=== PATIENT | female | born 1940 | race Caucasian/White ===

== ENCOUNTER → 2018-05-14 09:42 | Outpatient (CLI) | payer MEDICARE, OTHER, SELFPAY ==
--- NOTE | 2018-05-14 09:46 | BI_ITS ---
MAMMOGRAPHY - BILATERAL SCREENING REASON FOR EXAM: Female, 77 years old. Routine annual screening examination. PERTINENT HISTORY: Personal history of breast cancer. Prior left lumpectomy. Mother with breast cancer. TECHNIQUE: Digital bilateral breast lakisha (3D mammographic acquisition) in the CC and MLO projections. 2-D mediolateral oblique (MLO) and craniocaudad (CC) views of both breasts were obtained. CAD: Full Field Digital Mammography with Computer Added Detection was performed. COMPARISON: Comparison is made with prior study dated May 15, 2016 and prior outside examination dated May 23, 2017. FINDINGS: Breast Composition: The breasts are heterogeneously dense, which may obscure small masses. There are no dominant masses or suspicious calcifications. The patient is status post left lumpectomy with resection of the nodular density in the deep slightly lateral portion of the left breast. Postoperative scarring is seen at that site. No new mass lesion or cluster of microcalcifications present. No other significant abnormalities are identified. There has been no significant change since the prior study. BI/SCREENING MAMM (CAD), BILAT IMPRESSION: Stable bilateral screening mammogram. Yearly follow-up mammogram recommended. (A) ASSESSMENT CATEGORY: BIRADS Category 2: Benign. A letter regarding these results will be sent to the patient by the facility within 30 days. Approximately 10% of breast cancers are not detected by mammography. A normal mammogram should not delay biopsy of a clinically suspicious abnormality. [id number] Electronically Signed: Fabrizio Adams MD at 8:13 EDT Tel [phone], Service support ,
== END ==
PROVIDERS: Family Provider Family Medicine; PCP Family Medicine; Visit Provider Internal Medicine Hematology & Oncology
DX: Z12.31 Encounter for screening mammogram for malignant neoplasm of breast (principal); C50.412 Malignant neoplasm of upper-outer quadrant of left female breast; Z17.0 Estrogen receptor positive status [ER+]
CPT/HCPCS: 77063; 77067

== ENCOUNTER → 2018-07-09 08:01 | Outpatient (CLI) | payer MEDICARE, OTHER, SELFPAY ==
[2018-07-09 10:33] LABS: Vitamin D,25 Hydroxy 57.9 ng/mL (29.95-100.01)
[2018-07-09 10:56] LABS: Anion Gap 8 (5-15); BUN 14 mg/dL (7-18); BUN/Creat Ratio 19.7 RATIO (10-20); Calcium,Total 8.9 mg/dL (8.5-10.1); Chloride 104 mmol/L (98-107); Cholesterol 170 mg/dL (200); Creatinine, Serum 0.71 mg/dL (0.55-1.02); EST Glomerular Filtration Rate 84 mL/min (>60); Est Glom Filt Rate - Afr Amer 102 mL/min (>60); Glucose 92 mg/dL (74-106); High Density Lipoprotein 60 mg/dL; Potassium 3.8 mmol/L (3.5-5.1); Sodium Level 137 mmol/L (136-145); Thyroid Stim Hormone (TSH) 1.37 uIU/mL (0.358-3.74); Triglycerides 105 mg/dL; Very Low Density Lipoprotein 21 mg/dL (5-40)
== END ==
PROVIDERS: Family Provider Family Medicine; PCP Family Medicine; Visit Provider Family Medicine
DX: I10 Essential (primary) hypertension (principal); M85.80 Other specified disorders of bone density and structure, unspecified site
CPT/HCPCS: 36415; 80048; 80061; 82306; 84443

== ENCOUNTER → 2018-08-29 12:32 | Outpatient (CLI) | payer MEDICARE, OTHER, SELFPAY ==
--- NOTE | 2018-08-29 12:45 | BD_ITS ---
STUDY: DUAL ENERGY X-RAY ABSORPTIOMETRY / DXA REASON FOR EXAM: Female, 77 years old. The patient is postmenopausal. Loss of height. TECHNIQUE: Bone Mineral Density (BMD) measurements of lumbar spine and bilateral hips were obtained. COMPARISON: Comparison is made with prior study dated August 15, 2016. FINDINGS: Lumbar Spine (L1-L4): g/cm2 (0.921) / T-score (-2.1) / Z-score (-0.2) Findings are suggestive of osteopenia with a moderate fracture risk. Left Femur Total: g/cm2 (0.773) / T-score (-1.9) / Z-score (0.1) Left Femoral Neck: g/cm2 (0.772) / T-score (-1.9) / Z-score (0.2) Right Femur Total: g/cm2 (0.652) / T-score (-2.8) / Z-score (-0.8) Right Femoral Neck: g/cm2 (0.679) / T-score (-2.6) / Z-score (-0.4) The T-Scores on the most recent prior examination were: Lumbar Spine (L1-L4): There has been worsening of bone density since the previous examination. Left Femur Total: which represents a worsening of 1.8%. Right Femur Total: which represents a worsening of 3.4%. BD/Dexa Bone Density Study IMPRESSION: The patient is considered osteoporotic as outlined below according to World Tony Organization (WHO) criteria with a high fracture risk. There has been worsening of bone density since the previous examination. Reference Information: The T-score is the number of standard deviations above or below the standard which is normal for young adults at their peak bone mineral density. The World Health Organization (WHO) interprets the T-scores as follows: Above -1 Normal bone density Between -1 and -2.5 Osteopenia Equal to / or below -2.5 Osteoporosis As a practical clinical guideline, osteopenia may be graded as follows: Mild -1 through -1.5 Moderate -1.6 through -2.0 Severe -2.1 through -2.4 The Z-score is the number of standard deviations above or below age-matched controls. A Z-score of less than -1.5 would be considered abnormal. References: 1. NIH Osteoporosis and Related Bone Diseases http://www.osteo.org 2. International Society for Clinical Densitometry http://www.iscd.org 3. National Osteoporosis Foundation http://www.nof.org Electronically Signed: Fabrizio Adams MD at 10:08 EST Tel [phone], Service support ,
== END ==
PROVIDERS: Family Provider Family Medicine; PCP Family Medicine; Visit Provider Family Medicine
DX: Z78.0 Asymptomatic menopausal state (principal)
CPT/HCPCS: 77080

== ENCOUNTER → 2019-07-05 06:57 | Outpatient (CLI) | payer MEDICARE, OTHER, SELFPAY ==
--- NOTE | 2019-07-05 06:48 | BI_ITS ---
MAMMOGRAPHY - BILATERAL SCREENING REASON FOR EXAM: Female, 78 years old. Routine annual screening examination. PERTINENT HISTORY: Personal history of breast cancer. Prior left lumpectomy. TECHNIQUE: Digital bilateral breast dennise (3D mammographic acquisition) in the CC and MLO projections. 2-D mediolateral oblique (MLO) and craniocaudad (CC) views of both breasts were obtained. CAD: Full Field Digital Mammography with Computer Added Detection was performed. COMPARISON: Comparison is made with prior examination dated May 14, 2018 and May 15, 2016. FINDINGS: Breast Composition: The breasts are heterogeneously dense, which may obscure small masses. There are no dominant masses or suspicious calcifications. Once again, the patient is status post lumpectomy in the deep slightly lateral portion of the left breast. This is unchanged. No new mass lesion or cluster of calcification is seen. No other significant abnormalities are identified. There has been no significant change since the prior study. BI/SCREEN MAMM (CAD) W/DENNISE BILAT IMPRESSION: Stable bilateral screening mammogram. Yearly follow-up mammogram recommended. (A) ASSESSMENT CATEGORY: BIRADS Category 2: Benign. A letter regarding these results will be sent to the patient by the facility within 30 days. Approximately 10% of breast cancers are not detected by mammography. A normal mammogram should not delay biopsy of a clinically suspicious abnormality. [id number] Electronically Signed: Fabrizio Adams, at 8:25 EST , Service support ,
== END ==
PROVIDERS: Family Provider Family Medicine; PCP Family Medicine; Referring Provider Internal Medicine Hematology & Oncology; Visit Provider Internal Medicine Hematology & Oncology
DX: Z12.31 Encounter for screening mammogram for malignant neoplasm of breast (principal); C50.412 Malignant neoplasm of upper-outer quadrant of left female breast; Z17.0 Estrogen receptor positive status [ER+]
CPT/HCPCS: 77063; 77067

== ENCOUNTER → 2020-11-19 15:44 | Outpatient (CLI) | payer MEDICARE, OTHER, SELFPAY ==
--- NOTE | 2020-11-19 15:50 | RAD_ITS ---
STUDY: X-RAY - LUMBAR SPINE REASON FOR EXAM: Female, 80 years old. LOW BACK PAIN TECHNIQUE: 5 view(s) of the lumbar spine were obtained. COMPARISON: None FINDINGS: There is straightening of the normal lumbar lordosis. Mild lumbar dextroscoliosis. Normal vertebral bodies and endplates. L3-4: Disc space narrowing with vacuum phenomenon. 6 mm retrolisthesis. Mild multilevel spondylosis. Disc spaces are otherwise well-maintained. The soft tissue structures are unremarkable. RAD/L/S Spine Min 4 Views IMPRESSION: No acute findings. Mild degenerative changes of the lumbar spine. Mild dextroscoliosis. Electronically Signed: Nurys Alcocer MD at 17:07 EDT Tel , Service support ,
== END ==
PROVIDERS: PCP Family Medicine; Referring Provider Family Medicine; Visit Provider Family Medicine
DX: M54.5 Low back pain (principal)
CPT/HCPCS: 72110

== ENCOUNTER 2020-12-15 14:00 | Outpatient (RCR) | payer MEDICARE, OTHER, SELFPAY ==
--- NOTE | 2020-11-25 13:22 | HP.PTEVAL_ITS ---
Patient's Visit Information JOSUÉ PEREZ is a 80 year old F referred to Physical Therapy by Dr. Moustapha Gomez MD with a diagnosis of BACK PAIN AND RADICULAR SYMPTOMS. Date of Evaluation: 11/25/20 Physical Therapist: Sanford Randolph, PT, Cert MDT, OCS - Visit Plan Frequency: 2x /Week Duration: 4 Weeks Plan: PT INTERVENTIONS LUMBAR FLEXION ,DLS ,POSTURAL EX'S,MODALITIES FOR PAIN ,PATIENT EDUCATION - Subjective This 80 y/o female presents to physical therapy with Back pain with radiculopathy. Patient has had LBP and radicular symptoms 3 weeks . Patient had x-rays and recommended PT. Patient pain located in lumbar and radicuar symptom hamstrings and lateral thighs. Patient was provided with pridisone 40 mg and muscle relaxers,and hydrocodine. Aggraveting factors in the morning ,walking ,standing and lifting. Alleviating factors flexion DKC and MEDS.Bowel/bladder -. Coughing/sneezing -. Bowel/bladder -. Occassionally ,tingling in feet. Patient has had no prior treatment. Patient has no abdnormal nighty pain. Patient pain affect QOL and function long with housework tasks. SOCIAL: . VOCATION: retired - Pain Bilateral Back Pain Intensity (Out of 10): 8 Pain Intensity Range: 10 Left Lower Extremity Pain Intensity (Out of 10): 8 Pain Intensity Range: 10 Comment: RIGHT > LEFT HAMSTRINGS - Objective POSTURE: mild foward posture ,mild thoracic kyphosis reduce lordosis. GAIT: reciprocal pattern antalgic gait foward posture. NEURO: intact reflexes 2/3 L3-4,L4-S1. PALAPTION: tender L-S region. SYMMTRIES : align. LUMBAR ROM: flexion min loss pain right,extension severe loss,side glides mod loss. FLEXABLITY: hams mild tight. MMT: quads/hams 4-/5,hip flexion 3+/5,ankle 4/5 - Special Tests L/S Slump test left side: Negative L/S Slump test right side: Negative L/S Left Straight Leg Raise: Negative L/S Right Straight Leg Raise: Negative Lumbar Standing: Flexion - Mechanical Response: No effect Lumbar Standing: Flexion - Symptoms During Testing: Increases Lumbar Standing: Flexion - Symptoms After Testing: No worse Lumbar Standing: Extension - Mechanical Response: No effect Lumbar Standing: Extension - Symptoms During Testing: Increases Lumbar Standing: Extension - Symptoms After Testing: Worse Lumbar Standing: Right Side Glides - Mechanical Response: No effect Lumbar Standing: Right Side Kirby - Symptoms During Testing: No effect Lumbar Standing: Right Side Kirby - Symptoms After Testing: No effect Lumbar Standing: Left Side Kirby - Mechanical Response: No effect Lumbar Standing: Left Side Kirby - Symptoms During Testing: No effect Lumbar Standing: Left Side Kirby - Symptoms After Testing: No effect Lumbar Lying: Flexion - Mechanical Response: No effect Lumbar Lying: Flexion - Symptoms During Testing: Decreases Lumbar Lying: Flexion - Symptoms After Testing: No better - Goals Goal 1:: Patient to be I with HEP Goal Time Frame: 4-6 Weeks Goal 2:: Noramailze gait pattern with less pain community Goal Time Frame: 4-6 Weeks Goal 3:: Decrease lumbar and radicular symptoms in legs 50 % or > to improve function Goal Time Frame: 4-6 Weeks Goal 4:: Patient to improve lumbar ROM for function of recovery Goal Time Frame: 4-6 Weeks Goal 5:: Patient to improve back owestry score by 5 points or> to improve function. Goal Time Frame: 4-6 Weeks - Rehabilitation Potential Physical Therapy Diagnosis: This patient has lumbar pain with radicular symptoms with possible lumbar stenosis wwith pain back and legs ,weakness in hips ,antaigic gait decrease ROM with pain impairs function and ADLS thus benifit rom skilled PT Rehabilitation Potential: Good - Anticipated Interventions Patient/Client Instruction: Educate patient on: Condition, Plan of Care For the Purpose of:: To decrease pain, To increase ROM, To improve muscle performance and motor function, To improve ability to perform ADL's, To increase tolerance to activity/condition/position, To improve performance and independence with ADL's, To improve ability of physical actions for home/community/work/leisure, To improve health of tissue, To decrease soft tissue restriction, To increase flexibility/ROM, To improve ability to perform tasks related to life management Therapeutic Exercise to Include: Strength training, Body mechanics, Postural training, Flexibilty training, Dynamic Lumbar Stabilization For the Purpose of:: To decrease pain, To increase ROM, To increase oxygenation perfusion, To increase tolerance to activity/condition/position, To improve ability of physical actions for home/community/work/leisure, To improve health of tissue, To decrease soft tissue restriction, To increase flexibility/ROM, To reduce risk of recurrence, To improve ability to perform tasks related to life management IF ES: Yes Cryotherapy (ice pack, ice massage): Yes Thermo therapy (hot pack): Yes Ultrasound (thermal/non thermal): Yes For the Purpose of:: To decrease pain, To improve nutrient delivery to tissue, To increase oxygenation perfusion, To improve health of tissue, To decrease soft tissue restriction Thank you for the opportunity to evaluate your patient. For Medicare and Medicare HMO plans, please review the plan of care and approve it. It will need to be FAXED BACK to us at [phone] for Medicare purposes. For Medicare only, by signing this I certify the plan of care. Please let me know if there are questions or concerns regarding this plan of care. Physician Signature: Date:
--- NOTE | 2021-05-31 07:49 | HP.PTDCNRP_ITS ---
JOSUÉ PEREZ was seen in my office for initial evaluation on 11/25/20. The following Plan of Care was established for this patient: Initial Frequency: 2x /Week Initial Duration: 4 Weeks Patient/Client Instruction: Educate patient on: Condition, Plan of Care For the Purpose of:: To decrease pain, To increase ROM, To improve muscle performance and motor function, To improve ability to perform ADL's, To increase tolerance to activity/condition/position, To improve performance and independence with ADL's, To improve ability of physical actions for home/community/work/leisure, To improve health of tissue, To decrease soft tissue restriction, To increase flexibility/ROM, To improve ability to perform tasks related to life management Therapeutic Exercise to Include: Strength training, Body mechanics, Postural training, Flexibilty training, Dynamic Lumbar Stabilization For the Purpose of:: To decrease pain, To increase ROM, To increase oxygenation perfusion, To increase tolerance to activity/condition/position, To improve a bility of physical actions for home/community/work/leisure, To improve health of tissue, To decrease soft tissue restriction, To increase flexibility/ROM, To reduce risk of recurrence, To improve ability to perform tasks related to life management IF ES: Yes Cryotherapy (ice pack, ice massage): Yes Thermo therapy (hot pack): Yes Ultrasound (thermal/non thermal): Yes For the Purpose of:: To decrease pain, To improve nutrient delivery to tissue, To increase oxygenation perfusion, To improve health of tissue, To decrease soft tissue restriction This patient was last seen in our office . Pertinent comments regarding their Physical therapy will appear below: Patient seen for PT for lumbar pain with lumbar flexion ex's, DLS, and lossing traction lumbar At this point I will be discontinuing this patient from physical therapy. I would be happy to see this patient again in the future if found appropriate by the physician. Thank you! Sanford Randolph, PT, Cert MDT, OCS Balance/Gait/Functional tests - Balance/Special Test Scores Oswestry Low Back Score: 2
== END 2020-12-15 19:00 | disposition home or self-care (01) ==
LOC: PT 14:00
PROVIDERS: PCP Family Medicine; Referring Provider Family Medicine; Visit Provider Family Medicine
DX: M54.10 Radiculopathy, site unspecified (principal)
CPT/HCPCS: 97012; 97035; 97110; 97162; 97530

== ENCOUNTER → 2021-01-03 15:41 | Outpatient (CLI) | payer MEDICARE, OTHER, SELFPAY ==
[2021-01-03 18:25] LABS: BUN 15 mg/dL (7-18); Creatinine, Serum 0.78 mg/dL (0.55-1.02); Glucose 90 mg/dL (74-106)
[2021-01-03 18:26] LABS: Anion Gap 6 (5-15); BUN/Creat Ratio 19.4 RATIO (10-20); Calcium,Total 9.3 mg/dL (8.5-10.1); Chloride 104 mmol/L (98-107); EST Glomerular Filtration Rate 76 mL/min (>60); Est Glom Filt Rate - Afr Amer 92 mL/min (>60); Potassium 3.8 mmol/L (3.5-5.1); Sodium Level 139 mmol/L (136-145); Thyroid Stim Hormone (TSH) 0.96 uIU/mL (0.358-3.74)
[2021-01-03 18:29] LABS: Vitamin D,25 Hydroxy 106.1 ng/mL
[2021-01-04 08:15] LABS: PTHIN 30.3 pg/mL (18.4-80.1)
== END ==
PROVIDERS: PCP Family Medicine; Referring Provider Family Medicine; Visit Provider Family Medicine
DX: M81.0 Age-related osteoporosis without current pathological fracture (principal)
CPT/HCPCS: 36415; 80048; 82306; 83970; 84443

== ENCOUNTER → 2021-01-27 13:28 | Outpatient (CLI) | payer MEDICARE, OTHER, SELFPAY ==
--- NOTE | 2021-01-27 13:35 | BD_ITS ---
STUDY: DUAL ENERGY X-RAY ABSORPTIOMETRY / DXA REASON FOR EXAM: Female, 80 years old. Z00.00. The patient is postmenopausal. TECHNIQUE: Bone Mineral Density (BMD) measurements of lumbar spine and bilateral hips were obtained. COMPARISON: Comparison is made with prior study dated 08/29/2018. FINDINGS: Lumbar Spine (L1-L4): g/cm2 (0.919) / T-score (-2.1) / Z-score (-0.2) Findings are suggestive of osteopenia with a high fracture risk. Left Femur Total: g/cm2 (0.723) / T-score (-2.3) / Z-score (-0.1) Left Femoral Neck: g/cm2 (0.768) / T-score (-1.9) / Z-score (0.3) Right Femur Total: g/cm2 (0.631) / T-score (-3.0) / Z-score (-0.9) Right Femoral Neck: g/cm2 (0.667) / T-score (-2.7) / Z-score (-0.4) The T-Scores on the most recent prior examination were: Lumbar Spine (L1-L4): There has been worsening of bone density since the previous examination. Left Femur Total: which represents a worsening of 6.5%. Right Femur Total: which represents a worsening of 3.2%. BD/Dexa Bone Density Study IMPRESSION: The patient is considered osteoporotic as outlined below according to World Tony Organization (WHO) criteria with a high fracture risk. There has been worsening of bone density since the previous examination. Reference Information: The T-score is the number of standard deviations above or below the standard which is normal for young adults at their peak bone mineral density. The World Health Organization (WHO) interprets the T-scores as follows: Above -1 Normal bone density Between -1 and -2.5 Osteopenia Equal to / or below -2.5 Osteoporosis As a practical clinical guideline, osteopenia may be graded as follows: Mild -1 through -1.5 Moderate -1.6 through -2.0 Severe -2.1 through -2.4 The Z-score is the number of standard deviations above or below age-matched controls. A Z-score of less than -1.5 would be considered abnormal. References: 1. NIH Osteoporosis and Related Bone Diseases www osteo.org 2. International Society for Clinical Densitometry www iscd.org 3. National Osteoporosis Foundation www nof.org Electronically Signed: Fabrizio Adams MD at 11:12 EDT , Service support ,
--- NOTE | 2021-01-27 13:55 | BI_ITS ---
MAMMOGRAPHY - BILATERAL SCREENING REASON FOR EXAM: Female, 80 years old. Routine annual screening examination. PERTINENT HISTORY: Personal history of breast cancer. Prior left lumpectomy. Mother with breast cancer. TECHNIQUE: Digital bilateral breast lakisha (3D mammographic acquisition) in the CC and MLO projections. 2-D mediolateral oblique (MLO) and craniocaudad (CC) views of both breasts were obtained. CAD: Full Field Digital Mammography with Computer Added Detection was performed. COMPARISON: Comparison is made with prior study dated 07/05/2019 and 05/14/2018. FINDINGS: Breast Composition: The breasts are heterogeneously dense, which may obscure small masses. There are no dominant masses or suspicious calcifications. No other significant abnormalities are identified. There has been no significant change since the prior study. BI/SCREENING MAMM (CAD), BILAT IMPRESSION: Stable bilateral screening mammogram. Yearly follow-up mammogram recommended. (A) ASSESSMENT CATEGORY: BIRADS Category 1: Negative. A letter regarding these results will be sent to the patient by the facility within 30 days. Approximately 10% of breast cancers are not detected by mammography. A normal mammogram should not delay biopsy of a clinically suspicious abnormality. [id number] Electronically Signed: Fabrizio Adams MD at 14:45 EDT , Service support ,
== END ==
PROVIDERS: PCP Family Medicine; Referring Provider Family Medicine; Visit Provider Family Medicine
DX: Z12.31 Encounter for screening mammogram for malignant neoplasm of breast (principal); Z85.3 Personal history of malignant neoplasm of breast; M81.0 Age-related osteoporosis without current pathological fracture; Z78.0 Asymptomatic menopausal state; Z80.3 Family history of malignant neoplasm of breast
CPT/HCPCS: 77067; 77080

== ENCOUNTER → 2022-02-06 | Outpatient (CLI) | payer MEDICARE, OTHER, SELFPAY ==
--- NOTE | 2022-02-06 12:02 | BI_ITS ---
MAMMOGRAPHY - BILATERAL SCREENING REASON FOR EXAM: Female, 81 years old. Routine annual screening examination. PERTINENT HISTORY: Personal history of breast cancer. Prior left lumpectomy with the chemotherapy. Mother with breast cancer. TECHNIQUE: Digital bilateral breast dennise (3D mammographic acquisition) in the CC and MLO projections. 2-D mediolateral oblique (MLO) and craniocaudad (CC) views of both breasts were obtained. CAD: Full Field Digital Mammography with Computer Added Detection was performed. COMPARISON: Comparison is made with prior study dated 01/27/2021 and 07/05/2019. FINDINGS: Breast Composition: The breasts are heterogeneously dense, which may obscure small masses. There are no dominant masses or suspicious calcifications. No other significant abnormalities are identified. There has been no significant change since the prior study. BI/SCRN MAMM (CAD)W/DENNISE BILAT IMPRESSION: Stable bilateral screening mammogram. Yearly follow-up mammogram recommended. (A) ASSESSMENT CATEGORY: BIRADS Category 1: Negative. A letter regarding these results will be sent to the patient by the facility within 30 days. Approximately 10% of breast cancers are not detected by mammography. A normal mammogram should not delay biopsy of a clinically suspicious abnormality. [id number] Electronically Signed: Fabrizio Adams MD at 12:55 EDT ,
== END | disposition home or self-care (01) ==
LOC: OPBI 11:55
PROVIDERS: PCP Family Medicine; Referring Provider Nurse Practitioner; Visit Provider Nurse Practitioner
DX: Z12.31 Encounter for screening mammogram for malignant neoplasm of breast (principal)
CPT/HCPCS: 77063; 77067

== ENCOUNTER → 2023-04-03 | Outpatient (CLI) | payer MEDICARE, OTHER, SELFPAY ==
--- NOTE | 2023-04-03 12:22 | ECHOD_ITS ---
Reason For Study: MURMUR Procedure This was a 2D Doppler, Color Flow transthoracic echocardiogram. The study was technically difficult. Exam performed in department. Left Ventricle Normal LV size. Left ventricular systolic function is normal. The estimated ejection fraction is 65 %. No regional wall motion abnormalities noted. Right Ventricle Normal RV size. Normal systolic function. Atria Normal left atrium. Normal right atrium. Mitral Valve Bileaflet diffuse mitral valve thickening. Bileaflet mitral valve prolapse. Moderate (2+) anteriorly directed mitral valve insufficiency. Tricuspid Valve Normal tricuspid valve. Mild tricuspid valve insufficiency. Pulmonary artery systolic pressure is 36 mmHg. Aortic Valve Normal aortic valve. Mild (1+) aortic valve insufficiency. Pulmonic Valve Normal pulmonic valve. Great Vessels Normal aortic root. The pulmonary artery is normal size. Normal inferior vena cava. Pericardium/Pleural No pericardial effusion. MMode/2D Measurements & Calculations LVIDd: 5.2 cm IVSd: 1.1 cm Ao root diam: 3.9 cm LVIDs: 3.1 cm LVPWd: 1.1 cm RVDd: 3.2 cm FS: 40.2 % LAV(MOD-sp2): 41.7 ml LVAd ap4: 25.2 cm2 LVAd ap2: 20.2 cm2 LVLd ap4: 7.3 cm LVLd ap2: 6.8 cm EDV(MOD-sp4): 70.8 ml EDV(MOD-sp2): 49.2 ml EDV(sp4-el): 73.5 ml EDV(sp2-el): 50.7 ml LVAs ap4: 11.4 cm2 LVAs ap2: 9.5 cm2 LVLs ap4: 5.5 cm LVLs ap2: 5.6 cm ESV(MOD-sp4): 21.6 ml ESV(MOD-sp2): 15.1 ml ESV(sp4-el): 20.2 ml ESV(sp2-el): 13.8 ml EF(MOD-sp4): 69.6 % EF(MOD-sp2): 69.4 % EF(sp4-el): 72.5 % SV(MOD-sp4): 49.3 ml SV(MOD-sp2): 34.1 ml SV(sp4-el): 53.3 ml LA dimension(2D): 3.6 cm Time Measurements MV dec time: 0.20 sec Doppler Measurements & Calculations MV E max jesse: 111.9 cm/sec Lat Peak E' Jesse: 8.1 cm/sec Med Peak E' Jesse: 4.9 cm/sec MV A max jesse: 63.1 cm/sec E/E' lat: 13.8 E/E' med: 22.9 MV E/A: 1.8 MV V2 max: 130.7 cm/sec Ao V2 max: 142.6 cm/sec LV V1 max: 106.2 cm/sec MV max P.8 mmHg Ao max P.2 mmHg LV V1 max P.7 mmHg MV V2 mean: 53.6 cm/sec Ao V2 mean: 98.1 cm/sec LV V1 mean P.4 mmHg MV mean P.7 mmHg Ao mean P.4 mmHg LV V1 mean: 70.3 cm/sec MV V2 VTI: 30.2 cm Ao V2 VTI: 28.3 cm LV V1 VTI: 19.1 cm AV (velocity ratio): 0.68 MR max jesse: 632.2 cm/sec PA V2 max: 72.3 cm/sec TR max jesse: 280.8 cm/sec MR max P.9 mmHg PA V2 mean: 48.3 cm/sec TR max P.5 mmHg MR mean jesse: 539.3 cm/sec MR mean P.4 mmHg MR VTI: 210.4 cm ECHO/Echo Complete Interpretation Summary Normal LV size. Left ventricular systolic function is normal. The estimated ejection fraction is 65 %. Bileaflet diffuse mitral valve thickening. Bileaflet mitral valve prolapse. Moderate (2+) anteriorly directed mitral valve insufficiency. Ordering Physician: Clif Chery Referring Physician: Clif Chery Performed By: Gisela Broussard, DAWITCS, RVT
--- NOTE | 2023-04-03 12:22 | EKG12_ITS ---
Test Reason : HTN Blood Pressure : / mmHG Vent. Rate : 064 BPM Atrial Rate : 064 BPM P-R Int : 168 ms QRS Dur : 138 ms QT Int : 422 ms P-R-T Axes : 056 -47 035 degrees QTc Int : 435 ms Normal sinus rhythm with sinus arrhythmia Right bundle branch block Left anterior fascicular block Bifascicular block Abnormal ECG Confirmed by SUMAN HINOJOSA, MAR ([id number]), editorial cartoonist CARMELINA HOLBROOK ([id number]) on 04/04/2023 8:54:11 AM Referred By: Clif Chery Confirmed By:MAR WILL MD
== END | disposition home or self-care (01) ==
LOC: PSN 12:20
PROVIDERS: PCP Nurse Practitioner Family; Referring Provider Nurse Practitioner Family; Visit Provider Nurse Practitioner Family
DX: I10 Essential (primary) hypertension (principal); R01.1 Cardiac murmur, unspecified
CPT/HCPCS: 93005; 93306

== ENCOUNTER → 2023-04-10 | Outpatient (CLI) | payer MEDICARE, OTHER, SELFPAY ==
--- NOTE | 2023-04-10 09:09 | BI_ITS ---
MAMMOGRAPHY - BILATERAL SCREENING REASON FOR EXAM: Female, 82 years old. Routine annual screening examination. PERTINENT HISTORY: Personal history of breast cancer. Prior left lumpectomy. Mother with breast cancer. TECHNIQUE: Digital bilateral breast dennise (3D mammographic acquisition) in the CC and MLO projections. 2-D mediolateral oblique (MLO) and craniocaudad (CC) views of both breasts were obtained. CAD: Full Field Digital Mammography with Computer Added Detection was performed. COMPARISON: Comparison is made with prior study dated February 06, 2022 and January 27, 2021. FINDINGS: Breast Composition: The breasts are heterogeneously dense, which may obscure small masses. There are no dominant masses or suspicious calcifications. No other significant abnormalities are identified. There has been no significant change since the prior study. BI/SCRN MAMM (CAD)W/DENNISE BILAT IMPRESSION: Stable bilateral screening mammogram. Yearly follow-up mammogram recommended. (A) ASSESSMENT CATEGORY: BIRADS Category 2: Benign. A letter regarding these results will be sent to the patient by the facility within 30 days. Approximately 10% of breast cancers are not detected by mammography. A normal mammogram should not delay biopsy of a clinically suspicious abnormality. [id number] Electronically Signed: Fabrizio Adams MD at 10:37 EDT ,
--- NOTE | 2023-04-10 09:16 | BD_ITS ---
STUDY: DUAL ENERGY X-RAY ABSORPTIOMETRY / DXA REASON FOR EXAM: Female, 82 years old. [id number] TECHNIQUE: Bone Mineral Density (BMD) measurements of lumbar spine and bilateral hips were obtained. COMPARISON: Comparison is made with prior study dated January 27, 2021. FINDINGS: Lumbar Spine (L1-L4): g/cm2 (0.798) / T-score (-2.3) / Z-score (0.6) Findings are suggestive of osteopenia with a high fracture risk. Left Femur Total: g/cm2 (0.650) / T-score (-2.4) / Z-score (-0.1) Left Femoral Neck: g/cm2 (0.596) / T-score (-2.3) / Z-score (0.2) Right Femur Total: g/cm2 (0.590) / T-score (-2.9) / Z-score (-0.6) Right Femoral Neck: g/cm2 (0.493) / T-score (-3.2) / Z-score (-0.7) The T-Scores on the most recent prior examination were: Lumbar Spine (L1-L4): There has been worsening of bone density since the previous examination. Left Femur Total: which represents a worsening of 2.3%. Right Femur Total: which represents an improvement of 2.4%. BD/Dexa Bone Density Study IMPRESSION: The patient is considered osteoporotic as outlined below according to World Tony Organization (WHO) criteria with a high fracture risk. There has been worsening of bone density since the previous examination. Reference Information: The T-score is the number of standard deviations above or below the standard which is normal for young adults at their peak bone mineral density. The World Health Organization (WHO) interprets the T-scores as follows: Above -1 Normal bone density Between -1 and -2.5 Osteopenia Equal to / or below -2.5 Osteoporosis As a practical clinical guideline, osteopenia may be graded as follows: Mild -1 through -1.5 Moderate -1.6 through -2.0 Severe -2.1 through -2.4 The Z-score is the number of standard deviations above or below age-matched controls. A Z-score of less than -1.5 would be considered abnormal. References: 1. NIH Osteoporosis and Related Bone Diseases www osteo.org 2. International Society for Clinical Densitometry www iscd.org 3. National Osteoporosis Foundation www nof.org Electronically Signed: Fabrizio Adams MD at 9:26 EDT ,
== END | disposition home or self-care (01) ==
LOC: OPBD 09:07
PROVIDERS: PCP Nurse Practitioner Family; Referring Provider Nurse Practitioner Family; Visit Provider Nurse Practitioner Family
DX: Z12.31 Encounter for screening mammogram for malignant neoplasm of breast (principal); Z78.0 Asymptomatic menopausal state; Z85.3 Personal history of malignant neoplasm of breast; Z80.3 Family history of malignant neoplasm of breast
CPT/HCPCS: 77063; 77067; 77080

== ENCOUNTER → 2023-05-01 | Outpatient (CLI) | payer MEDICARE, OTHER, SELFPAY ==
--- NOTE | 2023-05-01 08:25 | RDU_ITS ---
Reason For Study: Essential HTN Right Renal Artery Left Renal Artery Right renal artery ostium 65.8/14.2 Left renal artery ostium 73.2/16.7 RSV/EDV. PSV/EDV. Right renal artery proximal Left renal artery proximal PSV/EDV 97.8/27.8 PSV/EDV. 79.3/20.4 . Right renal artery mid 79.3/19.8 Left renal artery mid 80.6/26.5 PSV/EDV. PSV/EDV . Right renal artery distal 64.2/23 Left renal artery distal 69/21.3 PSV/EDV. PSV/EDV. Right RAR 1.32. Left RAR 1.08. Right Renal Parenchyma Left Renal Parenchyma Upper Pole Medula 32.3/10.2 Left upper pole medulla 39.5/13.7 PSV/EDV. PSV/EDV . Right upper pole medulla EDR 0.3 . Left upper pole medulla EDR 0.3 . Right upper pole medulla R.I. Left upper pole medulla R.I. 0.65 . 0.68 . UP Cortex 19.2/7.1 PSV/EDV. Upper Lenard Cortx 18.8/6.5 PSV/EDV. Left upper pole cortex EDR 0.4 . Right upper pole cortex EDR 0.3 . Left upper pole cortex R.I. 0.63 . Right upper pole cortex R.I. 0.65 . Left lower Pole medulla 35.1/12 Right lower Pole medulla 34.8/11.4 PSV/EDV . PSV/EDV . Left lower pole medulla EDR 0.3 . Right lower pole medulla EDR 0.3 . Left lower pole medulla R.I. 0.66 . Right lower pole medulla R.I. Lower Pole Cortx 18.6/7.6 PSV/EDV. 0.67 . Left lower pole cortex EDR 0.4 . Lower Pole Cortex 13.9/5.3 PSV/EDV. Left lower pole cortex R.I. 0.59 . Right lower pole cortex EDR 0.4 . Left Renal Hilar Right lower pole cortex R.I. 0.62 . LT Hilar avg 59.2/21.3 PSV/EDV . Right Renal Hilar Left hilar acceleration time 50 Right Hilar avg 55.8/17.3 PSV/EDV. m/sec. Right hilar acceleration time 60 Left Renal Dimensions m/sec. Left kidney size 10.82 cm . Right Renal Dimensions Left cortical dimension 1.49 cm . Right kidney size 9.96 cm . Right cortical dimension 1.45 cm . Aorta Proximal abdominal aorta 2.16 x 2.25 cm . Proximal abdominal aorta peak systolic velocity is 74.3 cm/sec . Distal abdominal aorta 1.51 x 1.55 cm . Distal abdominal aorta peak systolic velocity is 73.2 cm/sec . VL/Renal Artery Duplex Ultrasound Interpretation Summary Bilateral renal arteries <60% stenosis. Ordering Physician: Clif Chery Referring Physician: Clif Chery Performed By: Treva Hernandez RVT
== END | disposition home or self-care (01) ==
LOC: CVS 08:24
PROVIDERS: PCP Nurse Practitioner Family; Referring Provider Nurse Practitioner Family; Visit Provider Nurse Practitioner Family
DX: I10 Essential (primary) hypertension (principal)
CPT/HCPCS: 93975

== ENCOUNTER 2025-05-30 18:43 | Emergency (ER) | payer MEDICARE, OTHER, SELFPAY ==
[2025-05-30 18:46] VITALS: BP 214/100; PULSE 77; RESP 19; TEMP 36.4; O2SAT 98; BMI 26.4
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
--- OUTSIDE RECORDS SUMMARY | 2025-05-30 19:38 | XMS RPT_ITS | CCD ---
Author Organization [facility] Care Team Providers Care Senior Account Director Name Role Phone Lexus HINOJOSA, Franki George Primary Care Provider Darvin HINOJOSA MD, Daesung Unavailable [phone] MIRI CATALOG SPECIALIST - TELEGRAPH REPEATER INSTALLER, KEVIN Arellano Primary Care Phys ician Miri WORKDAY CONSULTANT, WORKDAY CONSULTANT-C Kevin Aaron Primary Care Pr ovider Dr. Isidro Rueda Attending Provider Kevin Chery Primary Care Unavail able Isidro Rueda Attending Unavailable Miri, Kevin Aaron Primary Care Unavail able Miri, Kevin Aaron Referring Unavail able [place], Kevin Aaron Attending Unavail able Miri, Kevin Aaron Primary Care Unavail able Miri, Kevin Aaron Referring Unavail able Miri, Kevin Aaron Attending Unavail able SHARON HINOJOSA, DR KEELY Shi Attending Unavailab le MIRI CATALOG SPECIALIST - TELEGRAPH REPEATER INSTALLER, KEVIN Arellano Primary Care U navailable MIRI CATALOG SPECIALIST - TELEGRAPH REPEATER INSTALLER, KEVIN Arellano Attending U navailable MIRI CATALOG SPECIALIST - TELEGRAPH REPEATER INSTALLER, KEVIN Arellano Primary Care U navailable MIRI CATALOG SPECIALIST - TELEGRAPH REPEATER INSTALLER, KEVIN Arellano Attending U navailable MIRI CATALOG SPECIALIST - TELEGRAPH REPEATER INSTALLER, KEVIN Arellano Primary Care U navailable MIRI CATALOG SPECIALIST - TELEGRAPH REPEATER INSTALLER, KEVIN Arellano Attending U navailable MIRI CATALOG SPECIALIST - TELEGRAPH REPEATER INSTALLER, KEVIN Arellano Primary Care U navailable MIRI CATALOG SPECIALIST - TELEGRAPH REPEATER INSTALLER, KEVIN Arellano Attending U navailable MIRI CATALOG SPECIALIST - TELEGRAPH REPEATER INSTALLER, KEVIN Arellano Primary Care U navailable ESHENAUR PAMELAC, MIGUEL Castillo Attending Unavailable MIRI CATALOG SPECIALIST - TELEGRAPH REPEATER INSTALLER, KEVIN Arellano Primary Care U navailable KENNEN CATALOG SPECIALIST-TELEGRAPH REPEATER INSTALLER, BEV Durant Attending Unavai lable MIRI CATALOG SPECIALIST - TELEGRAPH REPEATER INSTALLER, KEVIN Arellaon Primary Care U navailable MIRI CATALOG SPECIALIST - TELEGRAPH REPEATER INSTALLER, KEVIN Arellano Attending U navailable MIRI CATALOG SPECIALIST - TELEGRAPH REPEATER INSTALLER, KEVIN Arellano Primary Care U therese HERRERA MD, DR KEELY Shi Attending Unavailab le MIRI CATALOG SPECIALIST - TELEGRAPH REPEATER INSTALLER, KEVIN Arellano Primary Care U therese HERRERA MD, DR KEELY Shi Admitting Unavailab le MIRI CATALOG SPECIALIST - TELEGRAPH REPEATER INSTALLER, KEVIN Arellano Consulting U therese GARZA MD, AYO Consulting Unavailable KAPPER CATALOG SPECIALIST-TELEGRAPH REPEATER INSTALLER, TITI Hopkins Consulting Arina HERRERA MD, DR KEELY Shi Attending Unavailab le MIRI CATALOG SPECIALIST - TELEGRAPH REPEATER INSTALLER, KEVIN Arellano Primary Care U navailable FISH CATALOG SPECIALIST-TELEGRAPH REPEATER INSTALLER, [place] Attending Unavailab le MIRI CATALOG SPECIALIST - TELEGRAPH REPEATER INSTALLER, KEVIN Arellano Primary Care U navailable MIRI CATALOG SPECIALIST - TELEGRAPH REPEATER INSTALLER, KEVIN Arellano Primary Care U navailable YANY MORELAND, MIGUEL Castillo Attending Unavailable MIRI CATALOG SPECIALIST - TELEGRAPH REPEATER INSTALLER, KEVIN Arellano Attending U navailable MIRI CATALOG SPECIALIST - TELEGRAPH REPEATER INSTALLER, KEVIN Arellano Primary Care U navailable MIRI CATALOG SPECIALIST - TELEGRAPH REPEATER INSTALLER, KEVIN Arellano Attending U navailable MIRI CATALOG SPECIALIST - TELEGRAPH REPEATER INSTALLER, KEVIN Arellano Primary Care U navailable MIRI CATALOG SPECIALIST - TELEGRAPH REPEATER INSTALLER, KEVIN Arellaon Primary Care U navailable MIRI CATALOG SPECIALIST - TELEGRAPH REPEATER INSTALLER, KEVIN Arellano Attending U navailable Medications Current Medications Medication Drug Class(es) Dates Sig (Normalized) Sig (Original) acetaminophen 1000 mg oral tablet (6 sources) Start: 01-01-2024 take 1 dose by mouth every six hours as needed for pain acetaminophen Dose : 1,000 mg =, Oral, q6hr, PRN as needed for pain, 0 Refill(s) Start Date: 01/01/24 Status: Ordered Medication Dispense Status: Completed Total Allowed Fills: 1 Fills Dispensed: 0 acetaminophen 325 mg / oxyCODONE hydrochloride 5 mg oral tablet (3 sources) Opioid Agonist Start: 06-02-2016 take 1 tablet by mouth every four hours Oxycodone-Acetamino phen Active 1 - 2 TABLET PO Q4H June 02, 2016 12:00am calcium carbonate 1500 mg oral tablet (8 sources) Start: 12-05-2022 calcium (as carbonate) 600 mg oral tablet Dose : 1,200 mg = 2 tab(s), Oral, qDay, 0 Refill(s) Start Date: 12/05/22 Status: Ordered calcium carbonate 1500 mg / cholecalciferol 800 unt oral tablet (3 sources) Vitamin D Start: 05-30-2016 Calcium Carbonate-Vitamin D3 (Caltrate With Vitamin D3) 1 TAB tablet Active 1 TABLET PO DAILY@0800 May 30, 2016 12:00am DME MISCellaneous (2 sources) Start: 09-22-2024 DME MISCellaneous See Instructions, Medical alert system, # 1 EA, 0 Refill(s), Osteoarthritis, 67.3 Start Date: 09/22/24 Status: Ordered Medication Dispense Status: Completed Quantity: 1.0 Unit: EA Total Allowed Fills: 1 Fills Dispensed: 0 Indications: Unspecified osteoarthritis, unspecified site; Start: 09-22-2024 DME MISCellane ous See Instructions, Medical alert system, # 1 EA, 0 Refill(s), Osteoarthritis, 67.3 Start Date: 09/22/24 Status: Ordered Quantity: 1.0 Unit: EA Repeat number: 1 Indication: Unspecified osteoarthritis, unspecified site docusate sodium 50 mg / sennosides, group home 8.6 mg oral tablet (1 source) Start: 01-03-2024 End: 01-06-2024 take 1 tablet by mouth twice daily as needed for constipation Senokot S 50 mg-8.6 mg oral tablet Dose = 2 tab(s), Oral, BID, Take as needed for constipation, X 3 day(s), # 12 tab(s), 0 Refill(s), [id number], 165.4, cm, 01/01/24 12:13:00 EDT, Height, kg, 01/01/24 12:13:00 EDT, Dosing Weight Start Date: 01/03/24 Stop Date: 01/06/24 Status: Ordered hydrALAZINE hydrochloride 10 mg oral tablet (7 sources) Arteriolar Vasodilator Start: 01-03-2024 End: 01-03-2024 take 1 tablet by mouth in the morning hydrALAZINE Start: 01/03/24 11:00:00 AM EDT, Dose = 10 mg, = 1 tab(s), Oral, Hold if SBP (mmHg) Start Date: 01/03/24 Stop Date: 01/03/24 Status: Completed Start: 01-03-2024 End: 01-03-2024 take 1 tablet by mouth in the morning hydrALAZINE Start: 01/03/24 7:00:00 AM EDT, Dose = 10 mg, = 1 tab(s), Oral, Hold if SBP (mmHg) Start Date: 01/03/24 Stop Date: 01/03/24 Status: Completed Start: 12-17-2023 End: 07-15-2024 hydrALAZINE 10 mg oral table t Dose : 10 mg = 1 tab(s), Oral, BID before brkst/lunch, # 180 tab(s), 1 Refill(s), Pharmacy: [facility] #[id number], Uncontrolled hypertension, 165.5, cm, 01/17/24 10:33:00 EDT, Height, kg, 01/17/24 10:33:00 EDT, Dosing Weight Start Date: 01/17/24 Stop Date: 07/15/24 Status: Ordered 24 hr metoprolol succinate 25 mg extended release oral tablet (14 sources) beta-Adrenergic Wes Start: 03-16-2025 metopr olol succinate 25 mg oral TABLET extended release Dose : 25 mg = 1 tab(s), Oral, qDay, # 90 tab(s), 1 Refill(s), Pharmacy: [facility], Uncontrolled hypertension, 165, cm, 11/03/24 9:43:00 EDT, Height, kg, 11/03/24 9:43:00 EDT, Dosing Weight Start Date: 03/16/25 Status: Ordered Medication Dispense Status: Completed Quantity: 90.0 Unit: tab(s) Total Allowed Fills: 2 Fills Dispensed: 0 Indications: Essential (primary) hypertension; Start: 2024 metoprolol suc cinate 25 mg oral TABLET extended release Dose : 25 mg = 1 tab(s), Oral, qDay, # 90 tab(s), 1 Refill(s), Pharmacy: [facility] #[id number], Uncontrolled hypertension, 165.5, cm, 04/22/24 13:29:00 EDT, Height, kg, 04/22/24 13:29:00 EDT, Dosing Weight Start Date: 10/02/24 Status: Ordered Quantity: 90.0 Unit: tab(s) Repeat number: 2 Indication: Essential (primary) hypertension Start: 03-31-2024 metoprolol suc cinate 25 mg oral TABLET extended release Dose : 25 mg = 1 tab(s), Oral, qDay, # 90 tab(s), 1 Refill(s), Pharmacy: [facility] #[id number], Uncontrolled hypertension, 165.5, cm, 01/17/24 10:33:00 EDT, Height, kg, 03/31/24 9:23:00 EDT, Dosing Weight Start Date: 03/31/24 Status: Ordered Start: 01-02-2024 End: 01-03-2024 take 0.5 tablet by mouth in the morning metoprolol succinate 25 mg oral TABLET extended release Start: 01/03/24 8:00:00 AM EDT, Dose = 25 mg, = 0.5 tab(s), Oral, Hold if SBP (mmHg) Start Date: 01/03/24 Stop Date: 01/03/24 Status: Completed Start: 10-11-2023 metoprolol suc cinate 25 mg oral TABLET extended release Dose : 25 mg = 1 tab(s), Oral, qDay, # 90 tab(s), 1 Refill(s), Pharmacy: [facility] #[id number], Uncontrolled hypertension, 165.5, cm, 01/17/24 10:33:00 EDT, Height, kg, 01/17/24 10:33:00 EDT, Dosing Weight Start Date: 01/17/24 Status: Ordered Start: 09-20-2023 metoprolol suc cinate 25 mg oral TABLET extended release Dose : 25 mg = 1 tab(s), Oral, qDay, # 30 tab(s), 0 Refill(s), Pharmacy: [facility] #[id number], Uncontrolled hypertension, 164, cm, 09/20/23 13:45:00 EST, Height, kg, 09/20/23 13:45:00 EST, Dosing Weight Start Date: 09/20/23 Status: Ordered ondansetron 4 mg oral tablet (1 source) Serotonin-3 Receptor Antagonist Start: 01-03-2024 End: 01-10-2024 ondansetron 4 mg oral tablet Dose : 4 mg = 1 tab(s), Oral, q8h, PRN Nausea/Vomiting, # 15 tab(s), 0 Refill(s), 01/10/24 9:23:00 AM EDT, Pharmacy: [facility] #[id number], 165.4, cm, 01/01/24 12:13:00 EDT, Height, kg, 01/01/24 12:13:00 EDT, Dosing Weight Start Date: 01/03/24 Stop Date: 01/10/24 Status: Ordered ramipril 10 mg oral capsule (10 sources) Angiotensin Converting Enzyme Inhibitor Start: 10-11-2023 ramipril 10 mg oral capsule Dose : 10 mg = 1 cap(s), Oral, qDay, Dose adjustment, # 90 cap(s), 1 Refill(s), Pharmacy: [facility] #[id number], Uncontrolled hypertension, 166, cm, 10/11/23 9:30:00 EST, Height, kg, 10/11/23 9:30:00 EST, Dosing Weight Start Date: 10/11/23 Status: Ordered Start: 09-20-2023 ramipril 10 mg oral capsule Dose : 10 mg = 1 cap(s), Oral, qDay, Dose adjustment, # 90 cap(s), 1 Refill(s), Pharmacy: [facility] #[id number], Uncontrolled hypertension, 164, cm, 09/20/23 13:45:00 EST, Height, kg, 09/20/23 13:45:00 EST, Dosing Weight Start Date: 09/20/23 Status: Ordered Start: 03-08-2023 ramipril 10 mg oral capsule Dose : 10 mg = 1 cap(s), Oral, qDay, Dose adjustment, # 90 cap(s), 1 Refill(s), Pharmacy: [facility] #[id number], Uncontrolled hypertension, 166, cm, 03/08/23 7:32:00 EDT, Height Start Date: 03/08/23 Status: Ordered Start: 12-05-2022 End: 02-03-2023 ramipril 5 mg oral capsule D ose : 5 mg = 1 cap(s), Oral, Daily, # 30 cap(s), 1 Refill(s), Pharmacy: [facility] #[id number], Uncontrolled hypertension, 166, cm, 12/05/22 15:21:00 EDT, Height Start Date: 12/05/22 Stop Date: 02/03/23 Status: Ordered sodium chloride 1000 mg oral tablet (2 sources) Start: 01-03-2024 take 1 tablet by mouth three times daily sodium chloride 1000 mg oral tablet Dose : 1 gram(s) =, Oral, TID, # 90 tab(s), 0 Refill(s), Pharmacy: [facility] #[id number], 165.4, cm, 01/01/24 12:13:00 EDT, Height, kg, 01/01/24 12:13:00 EDT, Dosing Weight Start Date: 01/03/24 Status: Ordered spironolactone 25 mg oral tablet (7 sources) Aldosterone Antagonist Start: 10-11-2023 End: 04-08-2024 spironolactone 25 mg oral tablet Dose : 25 mg = 1 tab(s), Oral, qDay, Take with food, # 90 tab(s), 1 Refill(s), Pharmacy: [facility] #[id number], HTN, goal below 140/90, 166, cm, 10/11/23 9:30:00 EST, Height, kg, 10/11/23 9:30:00 EST, Dosing Weight Start Date: 10/11/23 Stop Date: 04/08/24 Status: Ordered traMADol hydrochloride 50 mg oral tablet (1 source) Opioid Agonist Start: 01-03-2024 End: 01-10-2024 take 1-2 tablets by mouth every six hours as needed for pain Ultram 50 mg oral tablet See Instructions, PRN as needed for pain, 1-2 tab(s) Oral q6h, # 42 tab(s), 0 Refill(s), 01/10/24 9:23:00 AM EDT, Pharmacy: [facility] #[id number], S/P total left hip arthroplasty, 165.4, cm, 01/01/24 12:13:00 EDT, Height, 65.4, kg, 01/01/24 12:13:00 EDT, Dosing Weight Start Date: 01/03/24 Stop Date: 01/10/24 Status: Ordered valsartan 160 mg oral tablet (4 sources) Angiotensin 2 Receptor Wes Start: 03-16-2025 End: 09-12-2025 Diovan 160 mg oral tablet Dose : 160 mg = 1 tab(s), Oral, qDay, Discontinue ramipril and spironolactone, # 90 tab(s), 1 Refill(s), Pharmacy: [facility], HTN, goal below 140/90, 165, cm, 11/03/24 9:43:00 EDT, Height, kg, 11/03/24 9:43:00 EDT, Dosing Weight Start Date: 03/16/25 Stop Date: 09/12/25 Status: Ordered Medication Dispense Status: Completed Quantity: 90.0 Unit: tab(s) Total Allowed Fills: 2 Fills Dispensed: 0 Indications: Essential (primary) hypertension; Start: 01-17-2024 End: 12-30-2024 Diovan 160 mg oral tablet Do se : 160 mg = 1 tab(s), Oral, qDay, Discontinue ramipril and spironolactone, # 90 tab(s), 1 Refill(s), Pharmacy: [facility] #[id number], HTN, goal below 140/90, 165.5, cm, 04/22/24 13:29:00 EDT, Height, kg, 04/22/24 13:29:00 EDT, Dosing Weight Start Date: 07/03/24 Stop Date: 12/30/24 Status: Ordered Quantity: 90.0 Unit: tab(s) Repeat number: 2 Indication: Essential (primary) hypertension Vitamin D3 (10 sources) Start: 12-10-2023 take 1 tablet by eva th every week Vitamin D3 Dose : 100 mcg = 1 tab(s), Oral, Daily, 3000 units per week, # 90 tab(s), 0 Refill(s) Start Date: 12/10/23 Status: Ordered Medication Dispense Status: Completed Quantity: 90.0 Unit: tab(s) Total Allowed Fills: 1 Fills Dispensed: 0 Start: 12-10-2023 Vitamin D3 Dos e : 100 mcg = 1 tab(s), Oral, Daily, # 90 tab(s), 0 Refill(s) Start Date: 12/10/23 Status: Ordered Quantity: 90.0 Unit: tab(s) Repeat number: 1 Start: 12-10-2023 Vitamin D3 Dos e : 100 mcg = 1 tab(s), Oral, Daily, # 90 tab(s), 0 Refill(s) Start Date: 12/10/23 Status: Ordered Vitamin D3 125 mcg (5000 intl units) oral capsule (2 sources) Start: 12-05-2022 take 1 capsule by mouth once daily Vitamin D3 125 mcg (5000 intl units) oral capsule mcg = cap(s), Oral, qDay, 0 Refill(s) Start Date: 12/05/22 Status: Ordered Completed/Discontinued Medications Medication Drug Class(es) Dates Sig (Normalized) Sig (Original) aspirin 81 mg delayed release oral tablet (3 sources) Platelet Aggregation Inhibitor, Nonsteroidal Anti-inflammatory Drug Start: 01-03-2024 End: 02-02-2024 take 1 tablet by mouth twice daily aspirin 81 mg oral delayed release tablet Dose : 81 mg = 1 tab(s), Oral, BID, Take 81 mg aspirin twice daily with food for 4 weeks postoperatively for DVT prophylaxis., # 60 tab(s), 0 Refill(s), Pharmacy: [facility] #[id number], 165.4, cm, 01/01/24 12:13:00 EDT, Height, kg, 01/01/24 12:13:00 EDT, Dosing Weight Start Date: 01/03/24 Stop Date: 02/02/24 Status: Ordered Calcium Carbonate / vitamin D3 (1 source) take 2 tablets by mouth once daily CALCIUM CARBONATE/VITAMIN D3 (CALCIUM 500 + D, D3, ORAL) Take 2 tablets by mouth once daily. 0 Active Comment on above: Take 2 tablets by [facility] once daily. famotidine 20 mg oral tablet (4 sources) Histamine-2 Receptor Antagonist Start: 04-22-2024 End: 05-02-2024 Pepcid 20 mg oral tablet Dose : 20 mg = 1 tab(s), Oral, BID, # 20 tab(s), 0 Refill(s), Pharmacy: [facility] #[id number], Rash, 165.5, cm, 04/22/24 13:29:00 EDT, Height, kg, 04/22/24 13:29:00 EDT, Dosing Weight Start Date: 04/22/24 Stop Date: 05/02/24 Status: Ordered Quantity: 20.0 Unit: tab(s) Repeat number: 1 Indication: Rash and other nonspecific skin eruption Start: 01-03-2024 Pepcid 20 mg o ral tablet Dose : 20 mg = 1 tab(s), Oral, qDay, # 30 tab(s), 0 Refill(s), Pharmacy: [facility] #[id number], 165.4, cm, 01/01/24 12:13:00 EDT, Height, kg, 01/01/24 12:13:00 EDT, Dosing Weight Start Date: 01/03/24 Status: Ordered ferrous sulfate 325 mg oral tablet (3 sources) Start: 01-03-2024 End: 01-24-2024 ferrous sulfate 325 mg (65 mg elemental iron) oral tablet Dose : 325 mg = 1 tab(s), Oral, BID, # 42 tab(s), 0 Refill(s), Pharmacy: [facility] #[id number], 165.4, cm, 01/01/24 12:13:00 EDT, Height, kg, 01/01/24 12:13:00 EDT, Dosing Weight Start Date: 01/03/24 Stop Date: 01/24/24 Status: Ordered folic acid 1 mg oral tablet (3 sources) Start: 01-03-2024 End: 01-24-2024 folic acid 1 mg oral tablet Dose : 1 mg = 1 tab(s), Oral, qDay, # 21 tab(s), 0 Refill(s), Pharmacy: [facility] #[id number], 165.4, cm, 01/01/24 12:13:00 EDT, Height, kg, 01/01/24 12:13:00 EDT, Dosing Weight Start Date: 01/03/24 Stop Date: 01/24/24 Status: Ordered prednisoLONE 10 mg/ml ophthalmic solution (8 sources) Corticosteroid Start: 12-05-2022 End: 12-15-2022 take 1 dose into the eye(s) every four hours prednisoLONE sodium phosphate 1% ophthalmic solution Dose = 1 drop(s), Ophthalmic, q4h, # 5 mL, 0 Refill(s) Start Date: 12/05/22 Stop Date: 12/15/22 Status: Ordered Start: 05-30-2016 take 1 mL into the e ye(s) once daily Prednisolone Acetate Active 5 ML Each Eye DAILY May 30, 2016 12:00am prednisoLONE michael campoverde (PRED FORTE, ECONOPRED PLUS) 1 % ophthalmic suspension Use 1 Drop in both eyes once daily. 0 Active Comment on above: Use 1 Drop in both e yes once daily. Problems Active Problems Problem Classification Problem Date Documented Date Episodic/Chronic Administrative/social admission (1 source) Reduced mobility; Translations: [Other reduced mobility] Episodic Cancer of breast (1 source) Malignant neoplasm of upper-outer quadrant of female breast; Translations: [Malignant neoplasm of upper-outer quadrant of left female breast] Onset: 05-25-2017 05-25-2017 Chronic Cancer of breast (14 sources) History of malignant neoplasm of breast 12-05-2022 Episodic Conduction disorders (20 sources) Left anterior fascicular block; Translations: [Right bundle branch block] 04-19-2023 Chronic Comment on above: 04/03/2023 EKG Interpretation: -Perceived rhythm: Normal sinus rhythm with sinus arrhythmia -Ventricular rate: 64 bpm -Specific ST T changes noted: No -Acute ischemia noted: No -Other anomalies: Right bundle branch block; left anterior fascicular block (bifascicular block) Deficiency and other anemia (13 sources) Macrocytic anemia 01-04-2023 Episodic Deficiency and other anemia (1 source) Anemia; Translations: [Anemia, unspecified] Onset: 01-02-2024 Episodic Deficiency and other anemia (2 sources) Anemia, unspecified; Translations: [Anemia, unspecified] Onset: 04-28-2025 Episodic Essential hypertension (20 sources) Hypertensive disorder; Translations: [Essential (primary) hypertension] Onset: 04-09-2023 12-05-2022 Chronic Comment on above: 05/01/2023 Renal Art luanne Duplex Ultrasound IMPRESSION: 1. Bilateral renal artery less than 60% stenosed 04/03/2023 Echocardi ogram: IMPRESSION: 1. Normal LV size. 2. Left ventricular systolic function is normal. 3. The estimated ejection fraction. 65%. 4. Bileaflet diffuse mitral valve thickening. 5. Bileaflet mitral valve prolapse. 6. Moderate 2+ anteriorly directed mitral valve insufficiency. 04/03/2023 EKG Interpretation: -Perceived rhythm: Normal sinus rhythm with sinus arrhythmia -Ventricular rate: 64 bpm -Specific ST T changes noted: No -Acute ischemia noted: No -Other anomalies: Right bundle branch block; left anterior fascicular block (bifascicular block) Fluid and electrolyte disorders (9 sources) Hypo-osmolality and or hyponatremia; Translations: [Hypo-osmolality and hyponatremia] Onset: 01-02-2024 Episodic Heart valve disorders (12 sources) Mitral valve prolapse 04-19-2023 Chronic Comment on above: 04/03/2023 Echocardi ogram: IMPRESSION: 1. Normal LV size. 2. Left ventricular systolic function is normal. 3. The estimated ejection fraction. 65%. 4. Bileaflet diffuse mitral valve thickening. 5. Bileaflet mitral valve prolapse. 6. Moderate 2+ anteriorly directed mitral valve insufficiency. Heart valve disorders (14 sources) Heart murmur 12-05-2022 Episodic Malaise and fatigue (1 source) Asthenia; Translations: [Weakness] Episodic Nutritional deficiencies (18 sources) Vitamin D deficiency; Translations: [Vitamin D deficiency, unspecified] Onset: 10-04-2023 12-05-2022 Chronic Osteoarthritis (1 source) Osteoarthritis; Translations: [Unspecified osteoarthritis, unspecified site] Onset: 01-01-2024 Chronic Osteoporosis (13 sources) Osteoporosis 01-04-2023 Chronic Comment on above: 04/10/2023 DEXA Bone Density Study: IMPRESSION: 1. The patient is considered osteoporotic Other aftercare (1 source) Follow-up orthopedic assessment; Translations: [Aftercare following joint replacement surgery] Chronic Other connective tissue disease (2 sources) Hip joint prosthesis present; Translations: [Presence of left artificial hip joint] Onset: 01-03-2024 Chronic Other connective tissue disease (1 source) Musculoskeletal test abnormal; Translations: [Other symptoms and signs involving the musculoskeletal system] Episodic Other nervous system disorders (1 source) Walking disability; Translations: [Difficulty in walking, not elsewhere classified] Chronic Other non-traumatic joint disorders (11 sources) Hip pain 10-11-2023 Episodic Other non-traumatic joint disorders (1 source) Pain of left hip joint; Translations: [Pain in left hip] Episodic Other nutritional; endocrine; and metabolic disorders (3 sources) Overweight in adulthood with body mass index of 25 or more but less than 30 03-31-2024 Episodic Other skin disorders (14 sources) Skin lesion 12-05-2022 Episodic Other skin disorders (1 source) Eruption 04-22-2024 Episodic Other skin disorders (1 source) Folliculitis 04-22-2024 Episodic Peripheral and visceral atherosclerosis (14 sources) Renal artery stenosis; Translations: [Atherosclerosis of renal artery] Onset: 10-04-2023 09-20-2023 Chronic Comment on above: 05/01/2023 Renal Art luanne Duplex Ultrasound IMPRESSION: 1. Bilateral renal artery less than 60% stenosed Residual codes; unclassified (14 sources) Postmenopausal state 12-05-2022 Episodic Spondylosis; intervertebral disc disorders; other back problems (1 source) Degeneration of lumbar intervertebral disc; Translations: [Other intervertebral disc degeneration, lumbar region] Chronic Spondylosis; intervertebral disc disorders; other back problems (11 sources) Chronic low back pain 10-11-2023 Episodic Unclassified (14 sources) Non-smoker 12-05-2022 Unclassified (20 sources) Patient encounter status 12-05-2022 Unclassified (4 sources) History of repair of hip joint 01-17-2024 Past or Other Problems Problem Classification Problem Date Documented Date Episodic/Chronic Deficiency and other anemia (2 sources) Nutritional anemia, unspecified; Translations: [Nutritional anemia, unspecified] Onset: 10-04-2023 Episodic Other screening for suspected conditions (not mental disorders or infectious disease) (3 sources) Encounter for screening mammogram for malignant neoplasm of breast; Translations: [Encounter for screening for cardiovascular disorders] Onset: 04-16-2023 Episodic Results Test Name Value Interpretation Reference Range Facility .Auto Diffon 04-28-2025 Basophil, Absolute 0.0 10 3/mcL Normal 0.0-0.3 [facility] Comment on above: Performed By: #### A YOUNG, CBC, GFR, ADIFF, CMP, IBC, VIDH, FE #### [address] [id number] Basophils/100 WBC (Bld) 0.7 % Normal 0.0-2.5 [facility] Comment on above: Performed By: #### A YOUNG, CBC, GFR, ADIFF, CMP, IBC, VIDH, FE #### [address] [address] Eosinophil, Absolute 0.1 10 3/mcL Normal 0.0-0.7 [facility] Comment on above: Performed By: #### A YOUNG, CBC, GFR, ADIFF, CMP, IBC, VIDH, FE #### [address] [address] Eosinophils/100 WBC (Bld) 2.5 % Normal 0.0-6.0 [facility] Comment on above: Performed By: #### A YOUNG, CBC, GFR, ADIFF, CMP, IBC, VIDH, FE #### [address] [address] Lymphocyte, Absolute 1.0 10 3/mcL Normal 0.9-4.3 [facility] Comment on above: Performed By: #### A YOUNG, CBC, GFR, ADIFF, CMP, IBC, VIDH, FE #### [address] [address] Lymphocytes/100 WBC (Bld) 20.3 % Normal 20.0-40.0 [facility] Comment on above: Performed By: #### A YOUNG, CBC, GFR, ADIFF, CMP, IBC, VIDH, FE #### [address] [address] Monocyte, Absolute 0.5 10 3/mcL Normal 0.1-1.4 [facility] Comment on above: Performed By: #### A YOUNG, CBC, GFR, ADIFF, CMP, IBC, VIDH, FE #### [address] [address] Monocytes/100 WBC (Bld) 9.8 % Normal 2.0-13.0 [facility] [facility] Comment on above: Performed By: #### A YOUNG, CBC, GFR, ADIFF, CMP, IBC, VIDH, FE #### [address] [address] Neutrophils/100 WBC (Bld) 66.7 % Normal 50.0-75.0 [facility] Comment on above: Performed By: #### A OYUNG, CBC, GFR, ADIFF, CMP, IBC, VIDH, FE #### [address] [address] .GFRon 04-28-2025 Estimated Glomerular Filtration Rate 75 ml/min/1.73sqm Normal [facility] Comment on above: Result Comment: Stages of Chronic Kidney Disease (CKD) Stage Description eGFR(ml/min/1.73 sq.m.) CKD 1 Normal kidney function or >=90 normal kindney function with possible kidney damage (ex. Proteinuria) CKD 2 Kidney damage with mild loss 60-89 of kidney function CKD 3a Mild to moderate loss of kidney 45-59 function CKD 3b Moderate to severe loss of 30-44 of kindey function CKD 4 Severe loss of kidney function 15-29 CKD 5 Kidney failure <15 Note: (go live 2024) the eGFR calculation was updated to the 2020 CKD-EPI creatinine equation without a race factor to calculate the eGFR results. Performed By: #### A YOUNG, CBC, GFR, ADIFF, CMP, IBC, VIDH, FE #### [address] [address] .NEUABSon 04-28-2025 Neutrophil, Absolute 3.4 10 3/mcL Normal 2.3-8.1 [facility] Comment on above: Performed By: #### A YOUNG, CBC, GFR, ADIFF, CMP, IBC, VIDH, FE #### [address] [address] CBCon 04-28-2025 Erythrocyte distribution width (RBC) [Ratio] 13.8 % Normal 11.5-15.5 [facility] Comment on above: Performed By: #### A YUONG, CBC, GFR, ADIFF, CMP, IBC, VIDH, FE #### [place] [address] Hematocrit (Bld) [Volume fraction] 39.6 % Normal 34.0-46.0 [facility] Comment on above: Performed By: #### A YOUNG, CBC, GFR, ADIFF, CMP, IBC, VIDH, FE #### [place] [address] Hgb 13.5 G/dL Normal 12.0-16.0 [facility] Comment on above: Performed By: #### A YOUNG, CBC, GFR, ADIFF, CMP, IBC, VIDH, FE #### [address] [address] MCH (RBC) [Entitic mass] 33.0 pg Normal 27.0-33.0 [facility] Comment on above: Performed By: #### A YOUNG, CBC, GFR, ADIFF, CMP, IBC, VIDH, FE #### [address] [address] MCHC 34.0 G/dL Normal 32.0-36.0 [facility] Comment on above: Performed By: #### A YOUNG, CBC, GFR, ADIFF, CMP, IBC, VIDH, FE #### [place] [address] MCV (RBC) [Entitic vol] 96.9 fL Normal 80.0-99.0 [facility] Comment on above: Performed By: #### A YOUNG, CBC, GFR, ADIFF, CMP, IBC, VIDH, FE #### [place] [address] Platelet 179 10 3/mcL Normal 150-450 [facility] Comment on above: Performed By: #### A YOUNG, CBC, GFR, ADIFF, CMP, IBC, VIDH, FE #### [address] [address] Platelet mean volume (Bld) [Entitic vol] 8.6 fL Normal 6.6-10.5 [facility] Comment on above: Performed By: #### A YOUNG, CBC, GFR, ADIFF, CMP, IBC, VIDH, FE #### [address] [address] RBC 4.08 10 6/mcL Low 4.10-5.30 [facility] Comment on above: Performed By: #### A YOUNG, CBC, GFR, ADIFF, CMP, IBC, VIDH, FE #### [address] [address] WBC 5.1 10 3/mcL Normal 4.5-10.8 [facility] Comment on above: Performed By: #### A YOUNG, CBC, GFR, ADIFF, CMP, IBC, VIDH, FE #### [address] [address] CMPon 04-28-2025 Albumin Level 3.8 G/dL Normal 3.4-4.8 [facility] Comment on above: Performed By: #### A YOUNG, CBC, GFR, ADIFF, CMP, IBC, VIDH, FE #### [address] [address] Albumin/Globulin [Mass ratio] 1.2 {ratio} Normal 1.1-2.5 [facility] Comment on above: Performed By: #### A YOUNG, CBC, GFR, ADIFF, CMP, IBC, VIDH, FE #### [address] [address] ALP [Catalytic activity/Vol] 125 U/L Normal 40-135 [facility] Comment on above: Performed By: #### A YOUNG, CBC, GFR, ADIFF, CMP, IBC, VIDH, FE #### [address] [address] ALT [Catalytic activity/Vol] 9 U/L Low 14-59 [facility] Comment on above: Performed By: #### A YOUNG, CBC, GFR, ADIFF, CMP, IBC, VIDH, FE #### [address] [address] AST [Catalytic activity/Vol] 19 U/L Normal 10-40 [facility] Comment on above: Performed By: #### A YOUNG, CBC, GFR, ADIFF, CMP, IBC, VIDH, FE #### [address] [address] Bili Total 0.8 mg/dL Normal 0.2-1.0 [facility] Comment on above: Result Comment: Use of this assay is not recommended for patients undergoing treatment with eltrombopag due to the potential for falsely elevated results. Performed By: #### A YOUNG, CBC, GFR, ADIFF, CMP, IBC, VIDH, FE #### [address] [address] BUN/Creatinine Ratio 21 ratio Normal 7-27 [facility] Comment on above: Performed By: #### A YOUNG, CBC, GFR, ADIFF, CMP, IBC, VIDH, FE #### [place] [address] Calcium [Mass/Vol] 9.1 mg/dL Normal 8.4-10.2 [facility] Comment on above: Performed By: #### A YOUNG, CBC, GFR, ADIFF, CMP, IBC, VIDH, FE #### [place] [address] Chloride [Moles/Vol] 103 mmol/L Normal 98-107 [facility] Comment on above: Performed By: #### A YOUNG, CBC, GFR, ADIFF, CMP, IBC, VIDH, FE #### [place] [address] CO2 [Moles/Vol] 30 mmol/L Normal 23-31 [facility] Comment on above: Performed By: #### A YOUNG, CBC, GFR, ADIFF, CMP, IBC, VIDH, FE #### [place] [address] Creatinine [Mass/Vol] 0.77 mg/dL Normal 0.51-0.95 [facility] Comment on above: Performed By: #### A YOUNG, CBC, GFR, ADIFF, CMP, IBC, VIDH, FE #### [place] [address] Electrolyte Balance 4.0 mEq/L Normal 4.0-15.0 [facility] Comment on above: Performed By: #### A YOUNG, CBC, GFR, ADIFF, CMP, IBC, VIDH, FE #### [place] [address] Globulin 3.3 G/dL Normal 2.7-4.4 [facility] Comment on above: Performed By: #### A YOUNG, CBC, GFR, ADIFF, CMP, IBC, VIDH, FE #### [address] [address] Glucose [Mass/Vol] 94 mg/dL Normal 83-110 [facility] Comment on above: Performed By: #### A YOUNG, CBC, GFR, ADIFF, CMP, IBC, VIDH, FE #### [address] [address] Potassium [Moles/Vol] 4.7 mmol/L Normal 3.5-5.1 [facility] Comment on above: Performed By: #### A YOUNG, CBC, GFR, ADIFF, CMP, IBC, VIDH, FE #### [address] [address] Sodium [Moles/Vol] 137 mmol/L Normal 136-145 [facility] Comment on above: Performed By: #### A YOUNG, CBC, GFR, ADIFF, CMP, IBC, VIDH, FE #### [address] [address] Total Protein 7.1 G/dL Normal 6.4-8.2 [facility] Comment on above: Performed By: #### A YOUNG, CBC, GFR, ADIFF, CMP, IBC, VIDH, FE #### [address] [address] Urea nitrogen [Mass/Vol] 16 mg/dL Normal 7-18 [facility] Comment on above: Performed By: #### A YOUNG, CBC, GFR, ADIFF, CMP, IBC, VIDH, FE #### [address] [address] FEon 04-28-2025 Iron [Mass/Vol] 82 ug/dL Normal 50-170 [facility] Comment on above: Performed By: #### A YOUNG, CBC, GFR, ADIFF, CMP, IBC, VIDH, FE #### [address] [address] IBCon 04-28-2025 TIBC 284 mcg/dL Normal 250-450 [facility] Comment on above: Performed By: #### A YOUNG, CBC, GFR, ADIFF, CMP, IBC, VIDH, FE #### [address] [address] LABORATORYOrdered By: SYSTEM SYSTEM on 04-28-2025 25-hydroxyvitamin D3 [Mass/Vol] 89.8 ng/mL Invalid Interpretation Code AO ADM SS Comment on above: Interpretive Data: I nterpretive Values Based on Total 25(OH) Vitamin D: Deficient <20 ng/mL Insufficient 20 - <30 ng/mL Sufficient 30-100 ng/mL Albumin BCP dye [Mass/Vol] 3.8 G/dL Normal 3.4 - 4.8 G/dL AO ADM SS Albumin/Globulin [Mass ratio] 1.2 {ratio} Normal 1.1 - 2.5 ratio AO ADM SS ALP [Catalytic activity/Vol] 125 U/L Normal 40 - 135 U/L AO ADM SS ALT With P-5'-P [Catalytic activity/Vol] 9 U/L Low 14 - 59 U/L AO ADM SS AST With P-5'-P [Catalytic activity/Vol] 19 U/L Normal 10 - 40 U/L AO ADM SS Basophils (Bld) [#/Vol] 0.0 103/mcL Normal 0.0 - 0.3 10^3/mcL AO Workflow SS Basophils/100 WBC (Bld) 0.7 % Normal 0.0 - 2.5 % AO Workflow SS Bilirubin [Mass/Vol] 0.8 mg/dL Normal 0.2 - 1 .0 mg/dL AO ADM SS Comment on above: Interpretive Data: U se of this assay is not recommended for patients undergoing treatment with eltrombopag due to the potential for falsely elevated results. Calcium [Mass/Vol] 9.1 mg/dL Normal 8.4 - 10. 2 mg/dL AO ADM SS Chloride [Moles/Vol] 103 mmol/L Normal 98 - 10 7 mmol/L AO ADM SS CO2 [Moles/Vol] 30 mmol/L Normal 23 - 31 mmol/L AO ADM SS Creatinine [Mass/Vol] 0.77 mg/dL Normal 0.51 - 0.95 mg/dL AO ADM SS Electrolyte Balance 4.0 mEq/L Normal 4.0 - 15 .0 mEq/L AO ADM SS Eosinophil, Absolute 0.1 103/mcL Normal 0.0 - 0 .7 10^3/mcL AO Workflow SS Eosinophils/100 WBC (Bld) 2.5 % Normal 0.0 - 6.0 % AO Workflow SS Erythrocyte distribution width (RBC) [Ratio] 13.8 % Normal 11.5 - 15.5 % AO Workflow SS Estimated Glomerular Filtration Rate 75 ml/min/1.73sqm Invalid Interpretation Code AO Chemistry S Comment on above: Interpretive Data: Stages of Chronic Kidney Disease (CKD) Stage Description eGFR(ml/min/1.73 sq.m.) CKD 1 Normal kidney function or >=90 normal kindney function with possible kidney damage (ex. Proteinuria) CKD 2 Kidney damage with mild loss 60-89 of kidney function CKD 3a Mild to moderate loss of kidney 45-59 function CKD 3b Moderate to severe loss of 30-44 of kindey function CKD 4 Severe loss of kidney function 15-29 CKD 5 Kidney failure <15 Note: (go live 2024) the eGFR calculation was updated to the 2020 CKD-EPI creatinine equation without a race factor to calculate the eGFR results. Globulin 3.3 G/dL Normal 2.7 - 4.4 G/dL AO ADM SS Glucose [Mass/Vol] 94 mg/dL Normal 83 - 110 mg/dL AO ADM SS Hematocrit (Bld) [Volume fraction] 39.6 % Normal 34.0 - 46.0 % AO Workflow SS Hemoglobin (Bld) [Mass/Vol] 13.5 G/dL Normal 12.0 - 16.0 G/dL AO Workflow SS Iron [Mass/Vol] 82 ug/dL Normal 50 - 170 mcg/dL AO ADM SS Iron binding capacity [Mass/Vol] 284 mcg/dL Normal 250 - 450 mcg/dL AO ADM SS Lymphocytes (Bld) [#/Vol] 1.0 103/mcL Normal 0.9 - 4.3 10^3/mcL AO Workflow SS Lymphocytes/100 WBC (Bld) 20.3 % Normal 20.0 - 40.0 % AO Workflow SS MCH (RBC) [Entitic mass] 33.0 pg Normal 27.0 - 33.0 pg AO Workflow SS MCHC 34.0 G/dL Normal 32.0 - 36.0 G/dL AO Workflow SS MCV (RBC) [Entitic vol] 96.9 fL Normal 80.0 - 99.0 fL AO Workflow SS Monocytes (Bld) [#/Vol] 0.5 103/mcL Normal 0.1 - 1.4 10^3/mcL AO Workflow SS Monocytes/100 WBC (Bld) 9.8 % Normal 2.0 - 13.0 % AO Workflow SS Neutrophils (Bld) [#/Vol] 3.4 103/mcL Normal 2.3 - 8.1 10^3/mcL AO Workflow SS Neutrophils/100 WBC (Bld) 66.7 % Normal 50.0 - 75.0 % AO Workflow SS Platelet mean volume (Bld) [Entitic vol] 8.6 fL Normal 6.6 - 10.5 fL AO Workflow SS Platelets (Bld) [#/Vol] 179 103/mcL Normal 150 - 450 10^3/mcL AO Workflow SS Potassium [Moles/Vol] 4.7 mmol/L Normal 3.5 - 5.1 mmol/L AO ADM SS Protein [Mass/Vol] 7.1 G/dL Normal 6.4 - 8.2 G/dL AO ADM SS RBC (Bld) [#/Vol] 4.08 106/mcL Low 4.10 - 5.3 0 10^6/mcL AO Workflow SS Sodium [Moles/Vol] 137 mmol/L Normal 136 - 145 mmol/L AO ADM SS Urea nitrogen [Mass/Vol] 16 mg/dL Normal 7 - 18 mg/dL AO ADM SS Urea nitrogen/Creatinine [Mass ratio] 21 ratio Normal 7 - 27 ratio AO ADM SS WBC (Bld) [#/Vol] 5.1 103/mcL Normal 4.5 - 10.8 10^3/mcL AO Workflow SS VIDHon 04-28-2025 Vit. D 25-Hydroxy 89.8 ng/mL Normal [facility] Comment on above: Result Comment: Inte rpretive Values Based on Total 25(OH) Vitamin D: Deficient <20 ng/mL Insufficient 20 - <30 ng/mL Sufficient 30-100 ng/mL Performed By: #### A YOUNG, CBC, GFR, ADIFF, CMP, IBC, VIDH, FE #### [address] [address] .Auto Diffon 10-23-2024 Basophil, Absolute 0.1 10 3/mcL Normal 0.0-0.2 [facility] Comment on above: Performed By: #### A YOUNG, ADIFF, VIDH, LIPID, CBC #### [address] [address] Basophils/100 WBC (Bld) 0.7 % Normal 0.0-2.5 [facility] Comment on above: Performed By: #### A YOUNG, ADIFF, VIDH, LIPID, CBC #### [address] [address] Eosinophil, Absolute 0.4 10 3/mcL Normal 0.0-0.7 [facility] Comment on above: Performed By: #### A YOUNG, ADIFF, VIDH, LIPID, CBC #### [address] [address] Eosinophils/100 WBC (Bld) 3.7 % Normal 0.0-7.0 [facility] Comment on above: Performed By: #### A YOUNG, ADIFF, VIDH, LIPID, CBC #### [address] [address] Lymphocyte, Absolute 1.7 10 3/mcL Normal 0.9-4.3 [facility] Comment on above: Performed By: #### A YOUNG, ADIFF, VIDH, LIPID, CBC #### [address] [address] Lymphocytes/100 WBC (Bld) 16.2 % Low 20.0-40.0 [facility] Comment on above: Performed By: #### A YOUNG, ADIFF, VIDH, LIPID, CBC #### [address] [address] Monocyte, Absolute 0.7 10 3/mcL Normal 0.1-1.4 [facility] Comment on above: Performed By: #### A YOUNG, ADIFF, VIDH, LIPID, CBC #### [address] [address] Monocytes/100 WBC (Bld) 6.8 % Normal 2.0-13.0 [facility] Comment on above: Performed By: #### A YOUNG, ADIFF, VIDH, LIPID, CBC #### [address] [address] Neutrophils/100 WBC (Bld) 72.6 % Normal 50.0-75.0 [facility] Comment on above: Performed By: #### A YOUNG, ADIFF, VIDH, LIPID, CBC #### [address] [address] .NEUABSon 10-23-2024 Neutrophil, Absolute 7.7 10 3/mcL Normal 2.3-8.1 [facility] Comment on above: Performed By: #### A YOUNG, CBC, GFR, ADIFF, CMP, IBC, VIDH, FE #### [place] [address] CBCon 10-23-2024 Erythrocyte distribution width (RBC) [Ratio] 13.8 % Normal 11.5-15.5 [facility] Comment on above: Performed By: #### A YOUNG, ADIFF, VIDH, LIPID, CBC #### [place] [address] Hematocrit (Bld) [Volume fraction] 36.9 % Normal 34.0-46.0 [facility] Comment on above: Performed By: #### A YOUNG, ADIFF, VIDH, LIPID, CBC #### [address] [address] Hgb 12.5 G/dL Normal 12.0-16.0 [facility] Comment on above: Performed By: #### A YOUNG, ADIFF, VIDH, LIPID, CBC #### [address] [address] MCH (RBC) [Entitic mass] 31.9 pg Normal 27.0-33.0 [facility] Comment on above: Performed By: #### A YOUNG, ADIFF, VIDH, LIPID, CBC #### [place] [address] MCHC 33.8 G/dL Normal 32.0-36.0 [facility] Comment on above: Performed By: #### A YOUNG, ADIFF, VIDH, LIPID, CBC #### [place] [address] MCV (RBC) [Entitic vol] 94.4 fL Normal 80.0-99.0 [facility] Comment on above: Performed By: #### A YOUNG, ADIFF, VIDH, LIPID, CBC #### [place] [address] Platelet 379 10 3/mcL Normal 150-450 [facility] Comment on above: Performed By: #### A YOUNG, ADIFF, VIDH, LIPID, CBC #### [place] [address] Platelet mean volume (Bld) [Entitic vol] 7.8 fL Normal 6.6-10.5 [facility] Comment on above: Performed By: #### A YOUNG, ADIFF, VIDH, LIPID, CBC #### [place] [address] RBC 3.91 10 6/mcL Low 4.10-5.30 [facility] Comment on above: Performed By: #### A YOUNG, ADIFF, VIDH, LIPID, CBC #### [place] [address] WBC 10.6 10 3/mcL Normal 4.5-10.8 [facility] Comment on above: Performed By: #### A YOUNG, ADIFF, VIDH, LIPID, CBC #### [place] [address] LABORATORYOrdered By: SYSTEM SYSTEM on 10-23-2024 25-hydroxyvitamin D3 [Mass/Vol] 80.1 ng/mL Invalid Interpretation Code AO ADM SS Comment on above: Interpretive Data: I nterpretive Values Based on Total 25(OH) Vitamin D: Deficient <20 ng/mL Insufficient 20 - <30 ng/mL Sufficient 30-100 ng/mL Basophils (Bld) [#/Vol] 0.1 103/mcL Normal 0.0 - 0.2 10^3/mcL AO Workflow SS Basophils/100 WBC (Bld) 0.7 % Normal 0.0 - 2.5 % AO Workflow SS Eosinophil, Absolute 0.4 103/mcL Normal 0.0 - 0 .7 10^3/mcL AO Workflow SS Eosinophils/100 WBC (Bld) 3.7 % Normal 0.0 - 7.0 % AO Workflow SS Erythrocyte distribution width (RBC) [Ratio] 13.8 % Normal 11.5 - 15.5 % AO Workflow SS Hematocrit (Bld) [Volume fraction] 36.9 % Normal 34.0 - 46.0 % AO Workflow SS Hemoglobin (Bld) [Mass/Vol] 12.5 G/dL Normal 12.0 - 16.0 G/dL AO Workflow SS Lymphocytes (Bld) [#/Vol] 1.7 103/mcL Normal 0.9 - 4.3 10^3/mcL AO Workflow SS Lymphocytes/100 WBC (Bld) 16.2 % Low 20.0 - 40.0 % AO Workflow SS MCH (RBC) [Entitic mass] 31.9 pg Normal 27.0 - 33.0 pg AO Workflow SS MCHC 33.8 G/dL Normal 32.0 - 36.0 G/dL AO Workflow SS MCV (RBC) [Entitic vol] 94.4 fL Normal 80.0 - 99.0 fL AO Workflow SS Monocytes (Bld) [#/Vol] 0.7 103/mcL Normal 0.1 - 1.4 10^3/mcL AO Workflow SS Monocytes/100 WBC (Bld) 6.8 % Normal 2.0 - 13.0 % AO Workflow SS Neutrophils (Bld) [#/Vol] 7.7 103/mcL Normal 2.3 - 8.1 10^3/mcL AO Workflow SS Neutrophils/100 WBC (Bld) 72.6 % Normal 50.0 - 75.0 % AO Workflow SS Platelet mean volume (Bld) [Entitic vol] 7.8 fL Normal 6.6 - 10.5 fL AO Workflow SS Platelets (Bld) [#/Vol] 379 103/mcL Normal 150 - 450 10^3/mcL AO Workflow SS RBC (Bld) [#/Vol] 3.91 106/mcL Low 4.10 - 5.3 0 10^6/mcL AO Workflow SS WBC (Bld) [#/Vol] 10.6 103/mcL Normal 4.5 - 10.8 10^3/mcL AO Workflow SS LABORATORYOrdered By: Scooby Auguste on 10-23-2024 Cholesterol [Mass/Vol] 157 mg/dL Normal 0 - 200 mg/dL AO ADM SS Comment on above: Interpretive Data: C holesterol Reference Interval: Less than 200 Desirable 200-239 Borderline high risk 240 and above High risk Cholesterol in HDL [Mass/Vol] 51 mg/dL Normal 40 - 60 mg/dL AO ADM SS Cholesterol in LDL [Mass/Vol] 90 mg/dL Normal 0 - 130 mg/dL AO ADM SS Triglyceride [Mass/Vol] 78 mg/dL Normal 0 - 150 mg/dL AO ADM SS Comment on above: Interpretive Data: T riglyceride Reference Interval: Less than 150 Normal 150-199 Borderline high risk 200-499 High risk 500 or higher Very high risk LIPIDon 10-23-2024 Cholesterol [Mass/Vol] 157 mg/dL Normal 0-200 [facility] Comment on above: Result Comment: Chol esterol Reference Interval: Less than 200 Desirable 200-239 Borderline high risk 240 and above High risk Performed By: #### A YOUNG, CBC, GFR, ADIFF, CMP, IBC, VIDH, FE #### [address] [address] Cholesterol in HDL [Mass/Vol] 51 mg/dL Normal 40-60 [facility] Comment on above: Performed By: #### A YOUNG, CBC, GFR, ADIFF, CMP, IBC, VIDH, FE #### [address] [address] Cholesterol in LDL [Mass/Vol] 90 mg/dL Normal 0-130 [facility] Comment on above: Performed By: #### A YOUNG, CBC, GFR, ADIFF, CMP, IBC, VIDH, FE #### [address] [address] Triglyceride [Mass/Vol] 78 mg/dL Normal 0-150 [facility] Comment on above: Result Comment: Trig lyceride Reference Interval: Less than 150 Normal 150-199 Borderline high risk 200-499 High risk 500 or higher Very high risk Performed By: #### A YOUNG, CBC, GFR, ADIFF, CMP, IBC, VIDH, FE #### [address] [address] VIDHon 10-23-2024 Vit. D 25-Hydroxy 80.1 ng/mL Normal [facility] Comment on above: Result Comment: Inte rpretive Values Based on Total 25(OH) Vitamin D: Deficient <20 ng/mL Insufficient 20 - <30 ng/mL Sufficient 30-100 ng/mL Performed By: #### A YOUNG, CBC, GFR, ADIFF, CMP, IBC, VIDH, FE #### [address] [address] .Auto Diffon 03-27-2024 Basophil, Absolute 0.0 10 3/mcL Normal 0.0-0.2 [facility] ([place]) Comment on above: Performed By: #### N AUR #### [address] [address] #### OSMOU #### [address] [address] Basophils/100 WBC (Bld) 0.5 % Normal 0.0-2.5 [facility] ([place]) Comment on above: Performed By: #### N AUR #### [address] [address] #### OSMOU #### [address] [address] Eosinophil, Absolute 0.1 10 3/mcL Normal 0.0-0.4 [facility] ([place]) Comment on above: Performed By: #### N AUR #### [address] [address] #### OSMOU #### [address] [address] Eosinophils/100 WBC (Bld) 1.6 % Normal 0.0-7.0 [facility] ([place]) Comment on above: Performed By: #### N AUR #### [address] [address] #### OSMOU #### [address] [address] Lymphocyte, Absolute 1.4 10 3/mcL Normal 0.8-3.9 [facility] ([place]) Comment on above: Performed By: #### N AUR #### [address] [address] #### OSMOU #### [address] [address] Lymphocytes/100 WBC (Bld) 20.7 % Normal 10.0-50.0 [facility] ([place]) Comment on above: Performed By: #### N AUR #### [place] [address] #### OSMOU #### [address] [address] Monocyte, Absolute 0.6 10 3/mcL Normal 0.2-1.0 [facility] ([place]) Comment on above: Performed By: #### N AUR #### [place] [address] #### OSMOU #### [address] [address] Monocytes/100 WBC (Bld) 8.8 % Normal 1.7-13.0 [facility] ([place]) Comment on above: Performed By: #### N AUR #### [place] [address] #### OSMOU #### [address] [address] Neutrophils/100 WBC (Bld) 68.4 % Normal 37.0-80.0 [facility] ([place]) Comment on above: Performed By: #### N AUR #### [address] [address] #### OSMOU #### [address] [address] .NEUABSon 03-27-2024 Neutrophil, Absolute 4.5 10 3/mcL Normal 2.9-6.2 [facility] ([place]) Comment on above: Performed By: #### N AUR #### [place] [address] #### OSMOU #### [place] [address] CBCon 03-27-2024 Erythrocyte distribution width (RBC) [Ratio] 13.9 % Normal 11.5-14.5 [facility] ([place]) Comment on above: Performed By: #### N AUR #### [place] [address] #### OSMOU #### [place] [address] Hematocrit (Bld) [Volume fraction] 40.0 % Normal 37.0-47.0 [facility] ([place]) Comment on above: Performed By: #### N AUR #### [place] [address] #### OSMOU #### [place] [address] Hgb 13.2 G/dL Normal 12.0-16.0 [facility] ([place]) Comment on above: Performed By: #### N AUR #### [place] [address] #### OSMOU #### [place] [address] MCH (RBC) [Entitic mass] 32.0 pg High 27.0-31.2 [facility] ([place]) Comment on above: Performed By: #### N AUR #### [place] [address] #### OSMOU #### [place] [address] MCHC 33.1 G/dL Normal 33.0-37.0 [facility] ([place]) Comment on above: Performed By: #### N AUR #### [place] [address] #### OSMOU #### [place] [address] MCV (RBC) [Entitic vol] 96.8 fL High 80.0-94.0 [facility] ([place]) Comment on above: Performed By: #### N AUR #### [address] [address] #### OSMOU #### [place] [address] Platelet 209 10 3/mcL Normal 130-400 [facility] ([place]) Comment on above: Performed By: #### N AUR #### [place] [address] #### OSMOU #### [place] [address] Platelet mean volume (Bld) [Entitic vol] 8.9 fL Normal 7.4-10.4 [facility] ([place]) Comment on above: Performed By: #### N AUR #### [place] [address] #### OSMOU #### [place] [address] RBC 4.13 10 6/mcL Low 4.20-5.40 [facility] ([place]) Comment on above: Performed By: #### N AUR #### [place] [address] #### OSMOU #### [place] [address] WBC 6.6 10 3/mcL Normal 4.6-10.8 [facility] ([place]) Comment on above: Performed By: #### N AUR #### [place] [address] #### OSMOU #### [place] [address] FEon 03-27-2024 Iron [Mass/Vol] 80 ug/dL Normal 50-170 [facility] ([place]) Comment on above: Performed By: #### M RSAPCR #### [place] [address] IBCon 03-27-2024 TIBC 337 mcg/dL Normal 250-450 [facility] ([place]) Comment on above: Performed By: #### M RSAPCR #### [place] [address] LABORATORYOrdered By: SYSTEM SYSTEM on 03-27-2024 Basophil, Absolute 0.0 103/mcL Normal 0.0 - 0.2 10^3/mcL AO Workflow SS Basophils/100 WBC (Bld) 0.5 % Normal 0.0 - 2.5 % AO Workflow SS Eosinophil, Absolute 0.1 103/mcL Normal 0.0 - 0 .4 10^3/mcL AO Workflow SS Eosinophils/100 WBC (Bld) 1.6 % Normal 0.0 - 7.0 % AO Workflow SS Erythrocyte distribution width (RBC) [Ratio] 13.9 % Normal 11.5 - 14.5 % AO Workflow SS Hematocrit (Bld) [Volume fraction] 40.0 % Normal 37.0 - 47.0 % AO Workflow SS Hemoglobin (Bld) [Mass/Vol] 13.2 G/dL Normal 12.0 - 16.0 G/dL AO Workflow SS Lymphocyte, Absolute 1.4 103/mcL Normal 0.8 - 3 .9 10^3/mcL AO Workflow SS Lymphocytes/100 WBC (Bld) 20.7 % Normal 10.0 - 50.0 % AO Workflow SS MCH (RBC) [Entitic mass] 32.0 pg High 27.0 - 31.2 pg AO Workflow SS MCHC 33.1 G/dL Normal 33.0 - 37.0 G/dL AO Workflow SS MCV (RBC) [Entitic vol] 96.8 fL High 80.0 - 94.0 fL AO Workflow SS Monocyte, Absolute 0.6 103/mcL Normal 0.2 - 1.0 10^3/mcL AO Workflow SS Monocytes/100 WBC (Bld) 8.8 % Normal 1.7 - 13.0 % AO Workflow SS Neutrophil, Absolute 4.5 103/mcL Normal 2.9 - 6 .2 10^3/mcL AO Workflow SS Neutrophils/100 WBC (Bld) 68.4 % Normal 37.0 - 80.0 % AO Workflow SS Platelet mean volume (Bld) [Entitic vol] 8.9 fL Normal 7.4 - 10.4 fL AO Workflow SS Platelets (Bld) [#/Vol] 209 103/mcL Normal 130 - 400 10^3/mcL AO Workflow SS RBC (Bld) [#/Vol] 4.13 106/mcL Low 4.20 - 5.4 0 10^6/mcL AO Workflow SS WBC (Bld) [#/Vol] 6.6 103/mcL Normal 4.6 - 10.8 10^3/mcL AO Workflow SS Iron [Mass/Vol] 80 ug/dL Normal 50 - 170 mcg/dL AO ADM SS Iron binding capacity [Mass/Vol] 337 mcg/dL Normal 250 - 450 mcg/dL AO ADM SS 25-hydroxyvitamin D3 [Mass/Vol] 103.2 ng/mL Invalid Interpretation Code AO ADM SS Comment on above: Interpretive Data: I nterpretive Values Based on Total 25(OH) Vitamin D: Deficient <20 ng/mL Insufficient 20 - <30 ng/mL Sufficient 30-100 ng/mL LABORATORYOrdered By: Hero Jonas on 03-27-2024 Albumin DL <= 20 mg/L (U) [Mass/Vol] 965 mcg/dL Invalid Interpretation Code AO ADM SS Albumin/Creatinine DL <= 20 mg/L (U) [Mass ratio] 7 mcg/mg Normal 0 - 30 mcg/mg AO ADM SS Creatinine (U) [Mass/Vol] 131.6 mg/dL High 28.0 - 117.0 mg/dL AO ADM SS Cholesterol [Mass/Vol] 177 mg/dL Normal 0 - 200 mg/dL AO ADM SS Comment on above: Interpretive Data: C holesterol Reference Interval: Less than 200 Desirable 200-239 Borderline high risk 240 and above High risk Cholesterol in HDL [Mass/Vol] 62 mg/dL High 40 - 60 mg/dL AO ADM SS Cholesterol in LDL [Mass/Vol] 97 mg/dL Normal 0 - 130 mg/dL AO ADM SS Triglyceride [Mass/Vol] 90 mg/dL Normal 0 - 150 mg/dL AO ADM SS Comment on above: Interpretive Data: T riglyceride Reference Interval: Less than 150 Normal 150-199 Borderline high risk 200-499 High risk 500 or higher Very high risk LIPIDon 03-27-2024 Cholesterol [Mass/Vol] 177 mg/dL Normal 0-200 [facility] ([place]) Comment on above: Result Comment: Chol esterol Reference Interval: Less than 200 Desirable 200-239 Borderline high risk 240 and above High risk Performed By: #### A YOUNG, GFR, BMP, CBC, ADIFF #### [address] [address] Cholesterol in HDL [Mass/Vol] 62 mg/dL High 40-60 [facility] ([place]) Comment on above: Performed By: #### A YOUNG, GFR, BMP, CBC, ADIFF #### [address] [address] Cholesterol in LDL [Mass/Vol] 97 mg/dL Normal 0-130 [facility] ([place]) Comment on above: Performed By: #### A YOUNG, GFR, BMP, CBC, ADIFF #### [address] [address] Triglyceride [Mass/Vol] 90 mg/dL Normal 0-150 [facility] ([place]) Comment on above: Result Comment: Trig lyceride Reference Interval: Less than 150 Normal 150-199 Borderline high risk 200-499 High risk 500 or higher Very high risk Performed By: #### A YOUNG, GFR, BMP, CBC, ADIFF #### [address] [address] MALBRon 03-27-2024 U Creatinine 131.6 mg/dL High 28.0-117.0 [facility] ([place]) Comment on above: Performed By: #### A YOUNG, GFR, BMP, CBC, ADIFF #### [address] [address] U Microalb 965 mcg/dL Normal [facility] ([place]) Comment on above: Performed By: #### A YOUNG, GFR, BMP, CBC, ADIFF #### [address] [address] U Ratio Alb/Cre 7 mcg/mg Normal 0-30 [facility] ([place]) Comment on above: Performed By: #### A YOUNG, GFR, BMP, CBC, ADIFF #### [address] [address] VIDHon 03-27-2024 Vit. D 25-Hydroxy 103.2 ng/mL Normal [facility] ([place]) Comment on above: Result Comment: Inte rpretive Values Based on Total 25(OH) Vitamin D: Deficient <20 ng/mL Insufficient 20 - <30 ng/mL Sufficient 30-100 ng/mL Performed By: #### A YOUNG, GFR, BMP, CBC, ADIFF #### [address] [address] .Auto Diffon 01-16-2024 Basophil, Absolute 0.0 10 3/mcL Normal 0.0-0.2 [facility] ([place] Comment on above: Performed By: #### A YOUNG, GFR, BMP, CBC, ADIFF #### [address] [address] Basophils/100 WBC (Bld) 0.5 % Normal 0.0-2.5 [facility] ([place]) Comment on above: Performed By: #### A YOUNG, GFR, BMP, CBC, ADIFF #### [address] [address] Eosinophil, Absolute 0.2 10 3/mcL Normal 0.0-0.4 [facility] ([place]) Comment on above: Performed By: #### A YOUNG, GFR, BMP, CBC, ADIFF #### [address] [address] Eosinophils/100 WBC (Bld) 3.2 % Normal 0.0-7.0 [facility] ([place]) Comment on above: Performed By: #### A YOUNG, GFR, BMP, CBC, ADIFF #### [address] [address] Lymphocyte, Absolute 0.9 10 3/mcL Normal 0.8-3.9 [facility] ([place]) Comment on above: Performed By: #### A YOUNG, GFR, BMP, CBC, ADIFF #### [address] [address] Lymphocytes/100 WBC (Bld) 11.8 % Normal 10.0-50.0 [facility] ([place]) Comment on above: Performed By: #### A YOUNG, GFR, BMP, CBC, ADIFF #### [address] [address] Monocyte, Absolute 0.7 10 3/mcL Normal 0.2-1.0 [facility] ([place] Comment on above: Performed By: #### A YOUNG, GFR, BMP, CBC, ADIFF #### [address] [address] Monocytes/100 WBC (Bld) 9.6 % Normal 1.7-13.0 [facility] ([place]) Comment on above: Performed By: #### A YOUNG, GFR, BMP, CBC, ADIFF #### [address] [address] Neutrophils/100 WBC (Bld) 74.9 % Normal 37.0-80.0 [facility] ([place]) Comment on above: Performed By: #### A YOUNG, GFR, BMP, CBC, ADIFF #### [address] [address] .GFRon 01-16-2024 GFR 101 ml/min/1.73sqm Normal [facility] ([place]) Comment on above: Result Comment: GFR Population mean for , Non- Americans Ages 20-29 = 116 mL/min/1.73 sq.m. Ages 30-39 = 107 mL/min/1.73 sq.m. Ages 40-49 = 99 mL/min/1.73 sq.m. Ages 50-59 = 93 mL/min/1.73 sq.m. Ages 60-69 = 85 mL/min/1.73 sq.m. Ages 70+ = 75 mL/min/1.73 sq.m. Chronic Kidney Disease: Less than 60 mL/min/1.73 square meters End Stage Renal Disease: Less than 15 mL/min/1.73 square meters Performed By: #### A YOUNG, GFR, BMP, CBC, ADIFF #### [address] [address] GFR Non- 84 ml/min/1.73sqm Normal [facility] ([place]) Comment on above: Result Comment: GFR Population mean for , Non- Americans Ages 20-29 = 116 mL/min/1.73 sq.m. Ages 30-39 = 107 mL/min/1.73 sq.m. Ages 40-49 = 99 mL/min/1.73 sq.m. Ages 50-59 = 93 mL/min/1.73 sq.m. Ages 60-69 = 85 mL/min/1.73 sq.m. Ages 70+ = 75 mL/min/1.73 sq.m. Chronic Kidney Disease: Less than 60 mL/min/1.73 square meters End Stage Renal Disease: Less than 15 mL/min/1.73 square meters Performed By: #### A YOUNG, GFR, BMP, CBC, ADIFF #### [address] [address] .NEUABSon 01-16-2024 Neutrophil, Absolute 5.6 10 3/mcL Normal 2.9-6.2 [facility] ([place]) Comment on above: Performed By: #### A YOUNG, GFR, BMP, CBC, ADIFF #### [address] [address] BMPon 01-16-2024 BUN/Creatinine Ratio 30 ratio High 7-27 [facility] ([place] Comment on above: Performed By: #### A YOUNG, GFR, BMP, CBC, ADIFF #### [address] [address] Calcium [Mass/Vol] 9.2 mg/dL Normal 8.4-10.2 [facility] ([place] Comment on above: Performed By: #### A YOUNG, GFR, BMP, CBC, ADIFF #### [address] [address] Chloride [Moles/Vol] 102 mmol/L Normal 98-107 [facility] ([place]) Comment on above: Performed By: #### A YOUNG, GFR, BMP, CBC, ADIFF #### [address] [address] CO2 [Moles/Vol] 27 mmol/L Normal 23-31 [facility] ([place]) Comment on above: Performed By: #### A YOUNG, GFR, BMP, CBC, ADIFF #### [address] [address] Creatinine [Mass/Vol] 0.67 mg/dL Normal 0.55-1.02 [facility] ([place]) Comment on above: Performed By: #### A YOUNG, GFR, BMP, CBC, ADIFF #### [address] [address] Electrolyte Balance 10.0 mEq/L Normal 4.0-15.0 [facility] ([place]) Comment on above: Performed By: #### A YOUNG, GFR, BMP, CBC, ADIFF #### [address] [address] Glucose [Mass/Vol] 103 mg/dL Normal 83-110 [facility] ([place] Comment on above: Performed By: #### A YOUNG, GFR, BMP, CBC, ADIFF #### [address] [address] Potassium [Moles/Vol] 5.0 mmol/L Normal 3.5-5.1 [facility] ([place]) Comment on above: Performed By: #### A YOUNG, GFR, BMP, CBC, ADIFF #### [address] [address] Sodium [Moles/Vol] 139 mmol/L Normal 136-145 [facility] ([place] Comment on above: Performed By: #### A YOUNG, GFR, BMP, CBC, ADIFF #### [address] [address] Urea nitrogen [Mass/Vol] 20 mg/dL High 7-18 [facility] ([place]) Comment on above: Performed By: #### A YOUNG, GFR, BMP, CBC, ADIFF #### [address] [address] CBCon 01-16-2024 Erythrocyte distribution width (RBC) [Ratio] 15.5 % High 11.5-14.5 [facility] ([place]) Comment on above: Performed By: #### A YOUNG, GFR, BMP, CBC, ADIFF #### [address] [address] Hematocrit (Bld) [Volume fraction] 29.8 % Low 37.0-47.0 [facility] ([place]) Comment on above: Performed By: #### A YOUNG, GFR, BMP, CBC, ADIFF #### [address] [address] Hgb 10.7 G/dL Low 12.0-16.0 [facility] ([place] Comment on above: Performed By: #### A YOUNG, GFR, BMP, CBC, ADIFF #### [address] [address] MCH (RBC) [Entitic mass] 34.1 pg High 27.0-31.2 [facility] ([place]) Comment on above: Performed By: #### A YOUNG, GFR, BMP, CBC, ADIFF #### [address] [address] MCHC 35.7 G/dL Normal 33.0-37.0 [facility] ([place] Comment on above: Performed By: #### A YOUNG, GFR, BMP, CBC, ADIFF #### [address] [address] MCV (RBC) [Entitic vol] 95.3 fL High 80.0-94.0 [facility] ([place] Comment on above: Performed By: #### A YOUNG, GFR, BMP, CBC, ADIFF #### [address] [address] Platelet 321 10 3/mcL Normal 130-400 [facility] ([place] Comment on above: Performed By: #### A YOUNG, GFR, BMP, CBC, ADIFF #### [address] [address] Platelet mean volume (Bld) [Entitic vol] 7.3 fL Low 7.4-10.4 [facility] ([place]) Comment on above: Performed By: #### A YOUNG, GFR, BMP, CBC, ADIFF #### [address] [address] RBC 3.13 10 6/mcL Low 4.20-5.40 [facility] ([place] Comment on above: Performed By: #### A YOUNG, GFR, BMP, CBC, ADIFF #### [address] [address] WBC 7.5 10 3/mcL Normal 4.6-10.8 [facility] ([place]) Comment on above: Performed By: #### A YOUNG, GFR, BMP, CBC, ADIFF #### [facility] [address] [place], [place] [address] LABORATORYOrdered By: SYSTEM SYSTEM on 01-16-2024 Basophil, Absolute 0.0 103/mcL Normal 0.0 - 0.2 10^3/mcL AO Workflow SS Basophils/100 WBC (Bld) 0.5 % Normal 0.0 - 2.5 % AO Workflow SS Calcium [Mass/Vol] 9.2 mg/dL Normal 8.4 - 10. 2 mg/dL AO ADM SS Chloride [Moles/Vol] 102 mmol/L Normal 98 - 10 7 mmol/L AO ADM SS CO2 [Moles/Vol] 27 mmol/L Normal 23 - 31 mmol/L AO ADM SS Creatinine [Mass/Vol] 0.67 mg/dL Normal 0.55 - 1.02 mg/dL AO ADM SS Electrolyte Balance 10.0 mEq/L Normal 4.0 - 15 .0 mEq/L AO ADM SS Eosinophil, Absolute 0.2 103/mcL Normal 0.0 - 0 .4 10^3/mcL AO Workflow SS Eosinophils/100 WBC (Bld) 3.2 % Normal 0.0 - 7.0 % AO Workflow SS Erythrocyte distribution width (RBC) [Ratio] 15.5 % High 11.5 - 14.5 % AO Workflow SS GFR/1.73 sq M.predicted among blacks MDRD (S/P/Bld) [Vol rate/Area] 101 ml/min/1.73sqm Invalid Interpretation Code AO Chemistry S Comment on above: Interpretive Data: GFR Population mean for , Non- Americans Ages 20-29 = 116 mL/min/1.73 sq.m. Ages 30-39 = 107 mL/min/1.73 sq.m. Ages 40-49 = 99 mL/min/1.73 sq.m. Ages 50-59 = 93 mL/min/1.73 sq.m. Ages 60-69 = 85 mL/min/1.73 sq.m. Ages 70+ = 75 mL/min/1.73 sq.m. Chronic Kidney Disease: Less than 60 mL/min/1.73 square meters End Stage Renal Disease: Less than 15 mL/min/1.73 square meters GFR/1.73 sq M.predicted among non-blacks MDRD (S/P/Bld) [Vol rate/Area] 84 ml/min/1.73sqm Invalid Interpretation Code AO Chemistry S Comment on above: Interpretive Data: GFR Population mean for , Non- Americans Ages 20-29 = 116 mL/min/1.73 sq.m. Ages 30-39 = 107 mL/min/1.73 sq.m. Ages 40-49 = 99 mL/min/1.73 sq.m. Ages 50-59 = 93 mL/min/1.73 sq.m. Ages 60-69 = 85 mL/min/1.73 sq.m. Ages 70+ = 75 mL/min/1.73 sq.m. Chronic Kidney Disease: Less than 60 mL/min/1.73 square meters End Stage Renal Disease: Less than 15 mL/min/1.73 square meters Glucose [Mass/Vol] 103 mg/dL Normal 83 - 110 mg/dL AO ADM SS Hematocrit (Bld) [Volume fraction] 29.8 % Low 37.0 - 47.0 % AO Workflow SS Hemoglobin (Bld) [Mass/Vol] 10.7 G/dL Low 12.0 - 16.0 G/dL AO Workflow SS Lymphocyte, Absolute 0.9 103/mcL Normal 0.8 - 3 .9 10^3/mcL AO Workflow SS Lymphocytes/100 WBC (Bld) 11.8 % Normal 10.0 - 50.0 % AO Workflow SS MCH (RBC) [Entitic mass] 34.1 pg High 27.0 - 31.2 pg AO Workflow SS MCHC 35.7 G/dL Normal 33.0 - 37.0 G/dL AO Workflow SS MCV (RBC) [Entitic vol] 95.3 fL High 80.0 - 94.0 fL AO Workflow SS Monocyte, Absolute 0.7 103/mcL Normal 0.2 - 1.0 10^3/mcL AO Workflow SS Monocytes/100 WBC (Bld) 9.6 % Normal 1.7 - 13.0 % AO Workflow SS Neutrophil, Absolute 5.6 103/mcL Normal 2.9 - 6 .2 10^3/mcL AO Workflow SS Neutrophils/100 WBC (Bld) 74.9 % Normal 37.0 - 80.0 % AO Workflow SS Platelet mean volume (Bld) [Entitic vol] 7.3 fL Low 7.4 - 10.4 fL AO Workflow SS Platelets (Bld) [#/Vol] 321 103/mcL Normal 130 - 400 10^3/mcL AO Workflow SS Potassium [Moles/Vol] 5.0 mmol/L Normal 3.5 - 5.1 mmol/L AO ADM SS RBC (Bld) [#/Vol] 3.13 106/mcL Low 4.20 - 5.4 0 10^6/mcL AO Workflow SS Sodium [Moles/Vol] 139 mmol/L Normal 136 - 145 mmol/L AO ADM SS Urea nitrogen [Mass/Vol] 20 mg/dL High 7 - 18 mg/dL AO ADM SS Urea nitrogen/Creatinine [Mass ratio] 30 ratio High 7 - 27 ratio AO ADM SS WBC (Bld) [#/Vol] 7.5 103/mcL Normal 4.6 - 10.8 10^3/mcL AO Workflow SS .GFRon 01-07-2024 GFR Non- 78 ml/min/1.73sqm Normal [facility] ([place]) Comment on above: Result Comment: GFR Population mean for , Non- Americans Ages 20-29 = 116 mL/min/1.73 sq.m. Ages 30-39 = 107 mL/min/1.73 sq.m. Ages 40-49 = 99 mL/min/1.73 sq.m. Ages 50-59 = 93 mL/min/1.73 sq.m. Ages 60-69 = 85 mL/min/1.73 sq.m. Ages 70+ = 75 mL/min/1.73 sq.m. Chronic Kidney Disease: Less than 60 mL/min/1.73 square meters End Stage Renal Disease: Less than 15 mL/min/1.73 square meters Performed By: #### N AUR #### [address] [address] #### OSMSARAVANAN #### [address] [address] GFR 95 ml/min/1.73sqm Normal [facility] ([place]) Comment on above: Result Comment: GFR Population mean for , Non- Americans Ages 20-29 = 116 mL/min/1.73 sq.m. Ages 30-39 = 107 mL/min/1.73 sq.m. Ages 40-49 = 99 mL/min/1.73 sq.m. Ages 50-59 = 93 mL/min/1.73 sq.m. Ages 60-69 = 85 mL/min/1.73 sq.m. Ages 70+ = 75 mL/min/1.73 sq.m. Chronic Kidney Disease: Less than 60 mL/min/1.73 square meters End Stage Renal Disease: Less than 15 mL/min/1.73 square meters Performed By: #### N AUR #### [place] [address] #### OSMOU #### [address] [address] [facility] BUN/Creatinine Ratio 34 ratio High 7- [facility] ([place] Comment on above: Performed By: #### N AUR #### [place] [address] #### OSMOU #### [address] [address] Calcium [Mass/Vol] 8.6 mg/dL Normal 8.4-10.2 [facility] ([place] Comment on above: Performed By: #### N AUR #### [place] [address] #### OSMOU #### [address] [address] Chloride [Moles/Vol] 98 mmol/L Normal 98-107 [facility] ([place] Comment on above: Performed By: #### N AUR #### [place] [address] #### OSMOU #### [address] [address] CO2 [Moles/Vol] 28 mmol/L Normal 23-31 [facility] ([place] Comment on above: Performed By: #### N AUR #### [place] [address] #### OSMOU #### [address] [address] Creatinine [Mass/Vol] 0.71 mg/dL Normal 0.55-1.02 [facility] ([place]) Comment on above: Performed By: #### N AUR #### [place] [address] #### OSMOU #### [address] [address] Electrolyte Balance 8.0 mEq/L Normal 4.0-15.0 [facility] ([place]) Comment on above: Performed By: #### N AUR #### [place] [address] #### OSMOU #### [address] [address] Glucose [Mass/Vol] 142 mg/dL High 83-110 [facility] ([place] Comment on above: Performed By: #### N AUR #### [place] [address] #### OSMOU #### [address] [address] Potassium [Moles/Vol] 4.2 mmol/L Normal 3.5-5.1 [facility] ([place]) Comment on above: Performed By: #### N AUR #### [place] [address] #### OSMOU #### [address] [address] Sodium [Moles/Vol] 134 mmol/L Low 136-145 [facility] ([place] Comment on above: Performed By: #### N AUR #### [place] [address] #### OSMOU #### [address] [address] Urea nitrogen [Mass/Vol] 24 mg/dL High 7-18 [facility] ([place] Comment on above: Performed By: #### N AUR #### [address] [place], [place] [address] #### OSMOU #### [address] [address] .Auto Diffon 01-03-2024 Basophil, Absolute 0.0 10 3/mcL Normal 0.0-0.2 [facility] ([place] Comment on above: Performed By: #### M RSAPCR #### [address] [address] Basophils/100 WBC (Bld) 0.3 % Normal 0.0-2.5 [facility] ([place]) Comment on above: Performed By: #### M RSAPCR #### [address] [address] Eosinophil, Absolute 0.1 10 3/mcL Normal 0.0-0.4 [facility] ([place]) Comment on above: Performed By: #### M RSAPCR #### [address] [address] Eosinophils/100 WBC (Bld) 0.6 % Normal 0.0-7.0 [facility] ([place]) Comment on above: Performed By: #### M RSAPCR #### [address] [address] Lymphocyte, Absolute 1.1 10 3/mcL Normal 0.8-3.9 [facility] ([place]) Comment on above: Performed By: #### M RSAPCR #### [address] [address] Lymphocytes/100 WBC (Bld) 11.5 % Normal 10.0-50.0 [facility] ([place] Comment on above: Performed By: #### M RSAPCR #### [address] [address] Monocyte, Absolute 0.9 10 3/mcL Normal 0.2-1.0 [facility] ([place] Comment on above: Performed By: #### M RSAPCR #### [address] [address] Monocytes/100 WBC (Bld) 10.0 % Normal 1.7-13.0 [facility] ([place]) Comment on above: Performed By: #### M RSAPCR #### [address] [address] Neutrophils/100 WBC (Bld) 77.6 % Normal 37.0-80.0 [facility] ([place] Comment on above: Performed By: #### M RSAPCR #### [address] [address] .GFRon 01-03-2024 GFR 88 ml/min/1.73sqm Normal [facility] ([place]) Comment on above: Result Comment: GFR Population mean for , Non- Americans Ages 20-29 = 116 mL/min/1.73 sq.m. Ages 30-39 = 107 mL/min/1.73 sq.m. Ages 40-49 = 99 mL/min/1.73 sq.m. Ages 50-59 = 93 mL/min/1.73 sq.m. Ages 60-69 = 85 mL/min/1.73 sq.m. Ages 70+ = 75 mL/min/1.73 sq.m. Chronic Kidney Disease: Less than 60 mL/min/1.73 square meters End Stage Renal Disease: Less than 15 mL/min/1.73 square meters Performed By: #### M RSAPCR #### [address] [address] GFR Non- 72 ml/min/1.73sqm Normal [facility] ([place] Comment on above: Result Comment: GFR Population mean for , Non- Americans Ages 20-29 = 116 mL/min/1.73 sq.m. Ages 30-39 = 107 mL/min/1.73 sq.m. Ages 40-49 = 99 mL/min/1.73 sq.m. Ages 50-59 = 93 mL/min/1.73 sq.m. Ages 60-69 = 85 mL/min/1.73 sq.m. Ages 70+ = 75 mL/min/1.73 sq.m. Chronic Kidney Disease: Less than 60 mL/min/1.73 square meters End Stage Renal Disease: Less than 15 mL/min/1.73 square meters Performed By: #### M RSAPCR #### [address] [address] .NEUABSon 01-03-2024 Neutrophil, Absolute 7.3 10 3/mcL High 2.9-6.2 [facility] ([place]) Comment on above: Performed By: #### M RSAPCR #### [address] [address] BMPon 01-03-2024 BUN/Creatinine Ratio 28 ratio High 7-27 [facility] ([place] Comment on above: Performed By: #### M RSAPCR #### [address] [address] Calcium [Mass/Vol] 8.7 mg/dL Normal 8.4-10.2 [facility] ([place] Comment on above: Performed By: #### M RSAPCR #### [address] [address] Chloride [Moles/Vol] 96 mmol/L Low 98-107 [facility] ([place] Comment on above: Performed By: #### M RSAPCR #### [place] [id number] CO2 [Moles/Vol] 26 mmol/L Normal 23-31 [facility] ([place]) Comment on above: Performed By: #### M RSAPCR #### [address] [address] Creatinine [Mass/Vol] 0.76 mg/dL Normal 0.55-1.02 [facility] ([place] Comment on above: Performed By: #### M RSAPCR #### [place] [address] Electrolyte Balance 8.0 mEq/L Normal 4.0-15.0 [facility] ([place] Comment on above: Performed By: #### M RSAPCR #### [address] [address] Glucose [Mass/Vol] 120 mg/dL High 83-110 [facility] ([place] Comment on above: Performed By: #### M RSAPCR #### [place] [id number] Potassium [Moles/Vol] 4.5 mmol/L Normal 3.5-5.1 [facility] ([place] Comment on above: Performed By: #### M RSAPCR #### [place] [id number] Sodium [Moles/Vol] 130 mmol/L Low 136-145 [facility] ([place] Comment on above: Performed By: #### M RSAPCR #### [place] [id number] Urea nitrogen [Mass/Vol] 21 mg/dL High 7-18 [facility] ([place] Comment on above: Performed By: #### M RSAPCR #### [address] [address] CBCon 01-03-2024 Erythrocyte distribution width (RBC) [Ratio] 13.8 % Normal 11.5-14.5 [facility] ([place]) Comment on above: Performed By: #### M RSAPCR #### [place] [id number] Hematocrit (Bld) [Volume fraction] 27.6 % Low 37.0-47.0 [facility] ([place] Comment on above: Performed By: #### M RSAPCR #### [place] [address] Hgb 9.9 G/dL Low 12.0-16.0 [facility] ([place] Comment on above: Performed By: #### M RSAPCR #### [place] [id number] MCH (RBC) [Entitic mass] 33.8 pg High 27.0-31.2 [facility] ([place] Comment on above: Performed By: #### M RSAPCR #### [place] [id number] MCHC 35.9 G/dL Normal 33.0-37.0 [facility] ([place] Comment on above: Performed By: #### M RSAPCR #### [place] [id number] MCV (RBC) [Entitic vol] 94.1 fL High 80.0-94.0 [facility] ([place] Comment on above: Performed By: #### M RSAPCR #### [facility] [address] [place] [address] Platelet 161 10 3/mcL Normal 130-400 [facility] ([place] Comment on above: Performed By: #### M RSAPCR #### [facility] [address] [place] [address] Platelet mean volume (Bld) [Entitic vol] 8.4 fL Normal 7.4-10.4 [facility] ([place]) Comment on above: Performed By: #### M RSAPCR #### [address] [address] RBC 2.93 10 6/mcL Low 4.20-5.40 [facility] ([place] Comment on above: Performed By: #### M RSAPCR #### [address] [address] WBC 9.4 10 3/mcL Normal 4.6-10.8 [facility] ([place]) Comment on above: Performed By: #### M RSAPCR #### [address] [address] LABORATORYOrdered By: SYSTEM SYSTEM on 01-03-2024 Sodium (U) [Moles/Vol] 49 mmol/L Normal 20 - 110 mmol/L AO ADM SS Basophil, Absolute 0.0 103/mcL Normal 0.0 - 0.2 10^3/mcL AO Workflow SS Basophils/100 WBC (Bld) 0.3 % Normal 0.0 - 2.5 % AO Workflow SS Calcium [Mass/Vol] 8.7 mg/dL Normal 8.4 - 10. 2 mg/dL AO ADM SS Chloride [Moles/Vol] 96 mmol/L Low 98 - 10 7 mmol/L AO ADM SS CO2 [Moles/Vol] 26 mmol/L Normal 23 - 31 mmol/L AO ADM SS Creatinine [Mass/Vol] 0.76 mg/dL Normal 0.55 - 1.02 mg/dL AO ADM SS Electrolyte Balance 8.0 mEq/L Normal 4.0 - 15 .0 mEq/L AO ADM SS Eosinophil, Absolute 0.1 103/mcL Normal 0.0 - 0 .4 10^3/mcL AO Workflow SS Eosinophils/100 WBC (Bld) 0.6 % Normal 0.0 - 7.0 % AO Workflow SS Erythrocyte distribution width (RBC) [Ratio] 13.8 % Normal 11.5 - 14.5 % AO Workflow SS GFR/1.73 sq M.predicted among blacks MDRD (S/P/Bld) [Vol rate/Area] 88 ml/min/1.73sqm Invalid Interpretation Code AO Chemistry S Comment on above: Interpretive Data: GFR Population mean for , Non- Americans Ages 20-29 = 116 mL/min/1.73 sq.m. Ages 30-39 = 107 mL/min/1.73 sq.m. Ages 40-49 = 99 mL/min/1.73 sq.m. Ages 50-59 = 93 mL/min/1.73 sq.m. Ages 60-69 = 85 mL/min/1.73 sq.m. Ages 70+ = 75 mL/min/1.73 sq.m. Chronic Kidney Disease: Less than 60 mL/min/1.73 square meters End Stage Renal Disease: Less than 15 mL/min/1.73 square meters GFR/1.73 sq M.predicted among non-blacks MDRD (S/P/Bld) [Vol rate/Area] 72 ml/min/1.73sqm Invalid Interpretation Code AO Chemistry S Comment on above: Interpretive Data: GFR Population mean for , Non- Americans Ages 20-29 = 116 mL/min/1.73 sq.m. Ages 30-39 = 107 mL/min/1.73 sq.m. Ages 40-49 = 99 mL/min/1.73 sq.m. Ages 50-59 = 93 mL/min/1.73 sq.m. Ages 60-69 = 85 mL/min/1.73 sq.m. Ages 70+ = 75 mL/min/1.73 sq.m. Chronic Kidney Disease: Less than 60 mL/min/1.73 square meters End Stage Renal Disease: Less than 15 mL/min/1.73 square meters Glucose [Mass/Vol] 120 mg/dL High 83 - 110 mg/dL AO ADM SS Hematocrit (Bld) [Volume fraction] 27.6 % Low 37.0 - 47.0 % AO Workflow SS Hemoglobin (Bld) [Mass/Vol] 9.9 G/dL Low 12.0 - 16.0 G/dL AO Workflow SS Lymphocyte, Absolute 1.1 103/mcL Normal 0.8 - 3 .9 10^3/mcL AO Workflow SS Lymphocytes/100 WBC (Bld) 11.5 % Normal 10.0 - 50.0 % AO Workflow SS MCH (RBC) [Entitic mass] 33.8 pg High 27.0 - 31.2 pg AO Workflow SS MCHC 35.9 G/dL Normal 33.0 - 37.0 G/dL AO Workflow SS MCV (RBC) [Entitic vol] 94.1 fL High 80.0 - 94.0 fL AO Workflow SS Monocyte, Absolute 0.9 103/mcL Normal 0.2 - 1.0 10^3/mcL AO Workflow SS Monocytes/100 WBC (Bld) 10.0 % Normal 1.7 - 13.0 % AO Workflow SS Neutrophil, Absolute 7.3 103/mcL High 2.9 - 6 .2 10^3/mcL AO Workflow SS Neutrophils/100 WBC (Bld) 77.6 % Normal 37.0 - 80.0 % AO Workflow SS Platelet mean volume (Bld) [Entitic vol] 8.4 fL Normal 7.4 - 10.4 fL AO Workflow SS Platelets (Bld) [#/Vol] 161 103/mcL Normal 130 - 400 10^3/mcL AO Workflow SS Potassium [Moles/Vol] 4.5 mmol/L Normal 3.5 - 5.1 mmol/L AO ADM SS RBC (Bld) [#/Vol] 2.93 106/mcL Low 4.20 - 5.4 0 10^6/mcL AO Workflow SS Sodium [Moles/Vol] 130 mmol/L Low 136 - 145 mmol/L AO ADM SS Urea nitrogen [Mass/Vol] 21 mg/dL High 7 - 18 mg/dL AO ADM SS Urea nitrogen/Creatinine [Mass ratio] 28 ratio High 7 - 27 ratio AO ADM SS WBC (Bld) [#/Vol] 9.4 103/mcL Normal 4.6 - 10.8 10^3/mcL AO Workflow SS NAURon 01-03-2024 Sodium [Moles/Vol] 49 mmol/L Normal 20-110 [facility] ([place]) Comment on above: Performed By: #### A YOUNG, GFR, BMP, CBC, ADIFF #### [address] [address] .Auto Diffon 01-02-2024 Basophil, Absolute 0.0 10 3/mcL Normal 0.0-0.2 [facility] ([place]) Comment on above: Performed By: #### A YOUNG, GFR, BMP, CBC, ADIFF #### [address] [address] Basophils/100 WBC (Bld) 0.1 % Normal 0.0-2.5 [facility] ([place]) Comment on above: Performed By: #### A YOUNG, GFR, BMP, CBC, ADIFF #### [address] [address] Eosinophil, Absolute 0.0 10 3/mcL Normal 0.0-0.4 [facility] ([place]) Comment on above: Performed By: #### A YOUNG, GFR, BMP, CBC, ADIFF #### [address] [address] Eosinophils/100 WBC (Bld) 0.1 % Normal 0.0-7.0 [facility] ([place]) Comment on above: Performed By: #### A YOUNG, GFR, BMP, CBC, ADIFF #### [address] [address] Lymphocyte, Absolute 1.1 10 3/mcL Normal 0.8-3.9 [facility] ([place]) Comment on above: Performed By: #### A YOUNG, GFR, BMP, CBC, ADIFF #### [address] [address] Lymphocytes/100 WBC (Bld) 9.6 % Low 10.0-50.0 [facility] ([place]) Comment on above: Performed By: #### A YOUNG, GFR, BMP, CBC, ADIFF #### [address] [address] Monocyte, Absolute 1.1 10 3/mcL High 0.2-1.0 [facility] ([place]) Comment on above: Performed By: #### A YOUNG, GFR, BMP, CBC, ADIFF #### [address] [address] Monocytes/100 WBC (Bld) 10.1 % Normal 1.7-13.0 [facility] ([place]) Comment on above: Performed By: #### A YOUNG, GFR, BMP, CBC, ADIFF #### [address] [address] Neutrophils/100 WBC (Bld) 80.1 % High 37.0-80.0 [facility] ([place]) Comment on above: Performed By: #### A YOUNG, GFR, BMP, CBC, ADIFF #### [address] [address] .GFRon 01-02-2024 GFR 73 ml/min/1.73sqm Normal [facility] ([place]) Comment on above: Result Comment: GFR Population mean for , Non- Americans Ages 20-29 = 116 mL/min/1.73 sq.m. Ages 30-39 = 107 mL/min/1.73 sq.m. Ages 40-49 = 99 mL/min/1.73 sq.m. Ages 50-59 = 93 mL/min/1.73 sq.m. Ages 60-69 = 85 mL/min/1.73 sq.m. Ages 70+ = 75 mL/min/1.73 sq.m. Chronic Kidney Disease: Less than 60 mL/min/1.73 square meters End Stage Renal Disease: Less than 15 mL/min/1.73 square meters Performed By: #### A YOUNG, GFR, BMP, CBC, ADIFF #### [address] [address] GFR Non- 60 ml/min/1.73sqm Normal [facility] ([place]) Comment on above: Result Comment: GFR Population mean for , Non- Americans Ages 20-29 = 116 mL/min/1.73 sq.m. Ages 30-39 = 107 mL/min/1.73 sq.m. Ages 40-49 = 99 mL/min/1.73 sq.m. Ages 50-59 = 93 mL/min/1.73 sq.m. Ages 60-69 = 85 mL/min/1.73 sq.m. Ages 70+ = 75 mL/min/1.73 sq.m. Chronic Kidney Disease: Less than 60 mL/min/1.73 square meters End Stage Renal Disease: Less than 15 mL/min/1.73 square meters Performed By: #### A YOUNG, GFR, BMP, CBC, ADIFF #### [address] [address] .NEUABSon 01-02-2024 Neutrophil, Absolute 8.9 10 3/mcL High 2.9-6.2 [facility] ([place]) Comment on above: Performed By: #### A YOUNG, GFR, BMP, CBC, ADIFF #### [address] [address] BMPon 01-02-2024 BUN/Creatinine Ratio 35 ratio High 7-27 [facility] ([place]) Comment on above: Performed By: #### A YOUNG, GFR, BMP, CBC, ADIFF #### [address] [address] Calcium [Mass/Vol] 8.4 mg/dL Normal 8.4-10.2 [facility] ([place]) Comment on above: Performed By: #### A YOUNG, GFR, BMP, CBC, ADIFF #### [address] [address] Chloride [Moles/Vol] 96 mmol/L Low 98-107 [facility] ([place]) Comment on above: Performed By: #### A YOUNG, GFR, BMP, CBC, ADIFF #### [address] [address] CO2 [Moles/Vol] 26 mmol/L Normal 23-31 [facility] ([place]) Comment on above: Performed By: #### A YOUNG, GFR, BMP, CBC, ADIFF #### [address] [address] Creatinine [Mass/Vol] 0.89 mg/dL Normal 0.55-1.02 [facility] ([place]) Comment on above: Performed By: #### A YOUNG, GFR, BMP, CBC, ADIFF #### [address] [address] Electrolyte Balance 5.0 mEq/L Normal 4.0-15.0 [facility] ([place]) Comment on above: Performed By: #### A YOUNG, GFR, BMP, CBC, ADIFF #### [address] [address] Glucose [Mass/Vol] 100 mg/dL Normal 83-110 [facility] ([place]) Comment on above: Performed By: #### A YOUNG, GFR, BMP, CBC, ADIFF #### [address] [address] Potassium [Moles/Vol] 5.2 mmol/L High 3.5-5.1 [facility] ([place]) Comment on above: Performed By: #### A YOUNG, GFR, BMP, CBC, ADIFF #### [place] [id number] Sodium [Moles/Vol] 127 mmol/L Low 136-145 [facility] ([place]) Comment on above: Performed By: #### A YOUNG, GFR, BMP, CBC, ADIFF #### [place] [id number] Urea nitrogen [Mass/Vol] 31 mg/dL High 7-18 [facility] ([place]) Comment on above: Performed By: #### A YOUNG, GFR, BMP, CBC, ADIFF #### [place] [id number] CBCon 01-02-2024 Erythrocyte distribution width (RBC) [Ratio] 13.7 % Normal 11.5-14.5 [facility] ([place]) Comment on above: Performed By: #### A YOUNG, GFR, BMP, CBC, ADIFF #### [place] [id number] Hematocrit (Bld) [Volume fraction] 25.7 % Low 37.0-47.0 [facility] ([place]) Comment on above: Performed By: #### A YOUNG, GFR, BMP, CBC, ADIFF #### [place] [id number] Hgb 9.0 G/dL Low 12.0-16.0 [facility] ([place]) Comment on above: Performed By: #### A YOUNG, GFR, BMP, CBC, ADIFF #### [address] [address] MCH (RBC) [Entitic mass] 32.9 pg High 27.0-31.2 [facility] ([place]) Comment on above: Performed By: #### A YOUNG, GFR, BMP, CBC, ADIFF #### [address] [address] MCHC 35.2 G/dL Normal 33.0-37.0 [facility] ([place]) Comment on above: Performed By: #### A YOUNG, GFR, BMP, CBC, ADIFF #### [address] [address] MCV (RBC) [Entitic vol] 93.3 fL Normal 80.0-94.0 [facility] ([place]) Comment on above: Performed By: #### A YOUNG, GFR, BMP, CBC, ADIFF #### [address] [address] Platelet 162 10 3/mcL Normal 130-400 [facility] ([place]) Comment on above: Performed By: #### A YOUNG, GFR, BMP, CBC, ADIFF #### [address] [address] Platelet mean volume (Bld) [Entitic vol] 8.2 fL Normal 7.4-10.4 [facility] ([place]) Comment on above: Performed By: #### A YOUNG, GFR, BMP, CBC, ADIFF #### [address] [address] RBC 2.75 10 6/mcL Low 4.20-5.40 [facility] ([place]) Comment on above: Performed By: #### A YOUNG, GFR, BMP, CBC, ADIFF #### [address] [address] WBC 11.2 10 3/mcL High 4.6-10.8 [facility] ([place]) Comment on above: Performed By: #### A YOUNG, GFR, BMP, CBC, ADIFF #### [place] [id number] [place], [place] [address] LABORATORYOrdered By: Rodrigo Medrano on 01-02-2024 Osmolality (U) [Osmolality] 506 mosm/kg Normal 390 - 1090 mOsm/kg Manual Chem SS Osmolality [Osmolality] 271 mosm/kg Low 275 - 300 mOsm/kg Manual Chem SS LABORATORYOrdered By: SYSTEM SYSTEM on 01-02-2024 Sodium (U) [Moles/Vol] 29 mmol/L Normal 20 - 110 mmol/L AO ADM SS Basophil, Absolute 0.0 103/mcL Normal 0.0 - 0.2 10^3/mcL AO Workflow SS Basophils/100 WBC (Bld) 0.1 % Normal 0.0 - 2.5 % AO Workflow SS Calcium [Mass/Vol] 8.4 mg/dL Normal 8.4 - 10. 2 mg/dL AO ADM SS Chloride [Moles/Vol] 96 mmol/L Low 98 - 10 7 mmol/L AO ADM SS CO2 [Moles/Vol] 26 mmol/L Normal 23 - 31 mmol/L AO ADM SS Creatinine [Mass/Vol] 0.89 mg/dL Normal 0.55 - 1.02 mg/dL AO ADM SS Electrolyte Balance 5.0 mEq/L Normal 4.0 - 15 .0 mEq/L AO ADM SS Eosinophil, Absolute 0.0 103/mcL Normal 0.0 - 0 .4 10^3/mcL AO Workflow SS Eosinophils/100 WBC (Bld) 0.1 % Normal 0.0 - 7.0 % AO Workflow SS Erythrocyte distribution width (RBC) [Ratio] 13.7 % Normal 11.5 - 14.5 % AO Workflow SS GFR/1.73 sq M.predicted among blacks MDRD (S/P/Bld) [Vol rate/Area] 73 ml/min/1.73sqm Invalid Interpretation Code AO Chemistry S Comment on above: Interpretive Data: GFR Population mean for , Non- Americans Ages 20-29 = 116 mL/min/1.73 sq.m. Ages 30-39 = 107 mL/min/1.73 sq.m. Ages 40-49 = 99 mL/min/1.73 sq.m. Ages 50-59 = 93 mL/min/1.73 sq.m. Ages 60-69 = 85 mL/min/1.73 sq.m. Ages 70+ = 75 mL/min/1.73 sq.m. Chronic Kidney Disease: Less than 60 mL/min/1.73 square meters End Stage Renal Disease: Less than 15 mL/min/1.73 square meters GFR/1.73 sq M.predicted among non-blacks MDRD (S/P/Bld) [Vol rate/Area] 60 ml/min/1.73sqm Invalid Interpretation Code AO Chemistry S Comment on above: Interpretive Data: GFR Population mean for , Non- Americans Ages 20-29 = 116 mL/min/1.73 sq.m. Ages 30-39 = 107 mL/min/1.73 sq.m. Ages 40-49 = 99 mL/min/1.73 sq.m. Ages 50-59 = 93 mL/min/1.73 sq.m. Ages 60-69 = 85 mL/min/1.73 sq.m. Ages 70+ = 75 mL/min/1.73 sq.m. Chronic Kidney Disease: Less than 60 mL/min/1.73 square meters End Stage Renal Disease: Less than 15 mL/min/1.73 square meters Glucose [Mass/Vol] 100 mg/dL Normal 83 - 110 mg/dL AO ADM SS Hematocrit (Bld) [Volume fraction] 25.7 % Low 37.0 - 47.0 % AO Workflow SS Hemoglobin (Bld) [Mass/Vol] 9.0 G/dL Low 12.0 - 16.0 G/dL AO Workflow SS Lymphocyte, Absolute 1.1 103/mcL Normal 0.8 - 3 .9 10^3/mcL AO Workflow SS Lymphocytes/100 WBC (Bld) 9.6 % Low 10.0 - 50.0 % AO Workflow SS MCH (RBC) [Entitic mass] 32.9 pg High 27.0 - 31.2 pg AO Workflow SS MCHC 35.2 G/dL Normal 33.0 - 37.0 G/dL AO Workflow SS MCV (RBC) [Entitic vol] 93.3 fL Normal 80.0 - 94.0 fL AO Workflow SS Monocyte, Absolute 1.1 103/mcL High 0.2 - 1.0 10^3/mcL AO Workflow SS Monocytes/100 WBC (Bld) 10.1 % Normal 1.7 - 13.0 % AO Workflow SS Neutrophil, Absolute 8.9 103/mcL High 2.9 - 6 .2 10^3/mcL AO Workflow SS Neutrophils/100 WBC (Bld) 80.1 % High 37.0 - 80.0 % AO Workflow SS Platelet mean volume (Bld) [Entitic vol] 8.2 fL Normal 7.4 - 10.4 fL AO Workflow SS Platelets (Bld) [#/Vol] 162 103/mcL Normal 130 - 400 10^3/mcL AO Workflow SS Potassium [Moles/Vol] 5.2 mmol/L High 3.5 - 5.1 mmol/L AO ADM SS RBC (Bld) [#/Vol] 2.75 106/mcL Low 4.20 - 5.4 0 10^6/mcL AO Workflow SS Sodium [Moles/Vol] 127 mmol/L Low 136 - 145 mmol/L AO ADM SS Urea nitrogen [Mass/Vol] 31 mg/dL High 7 - 18 mg/dL AO ADM SS Urea nitrogen/Creatinine [Mass ratio] 35 ratio High 7 - 27 ratio AO ADM SS WBC (Bld) [#/Vol] 11.2 103/mcL High 4.6 - 10.8 10^3/mcL AO Workflow SS NAURon 01-02-2024 Sodium [Moles/Vol] 29 mmol/L Normal 20-110 [facility] ([place]) Comment on above: Performed By: #### N AUR #### [address] [address] #### OSMOU #### [address] [address] OSMOSon 01-02-2024 Osmolality [Osmolality] 271 mosm/kg Low 275-300 [facility] ([place]) Comment on above: Performed By: #### M RSAPCR #### [address] [address] OSMOUon 01-02-2024 U Osmolality 506 mOsm/kg Normal 390-1090 [facility] ([place]) Comment on above: Performed By: #### N AUR #### [address] [address] #### OSMOU #### [address] [address] .GFRon 01-01-2024 GFR Non- 80 ml/min/1.73sqm Normal [facility] ([place]) Comment on above: Result Comment: GFR Population mean for , Non- Americans Ages 20-29 = 116 mL/min/1.73 sq.m. Ages 30-39 = 107 mL/min/1.73 sq.m. Ages 40-49 = 99 mL/min/1.73 sq.m. Ages 50-59 = 93 mL/min/1.73 sq.m. Ages 60-69 = 85 mL/min/1.73 sq.m. Ages 70+ = 75 mL/min/1.73 sq.m. Chronic Kidney Disease: Less than 60 mL/min/1.73 square meters End Stage Renal Disease: Less than 15 mL/min/1.73 square meters Performed By: #### G RUSTY KAUFFMAN ABOGEL, BMP #### [address] [address] GFR 96 ml/min/1.73sqm Normal [facility] ([place]) Comment on above: Result Comment: GFR Population mean for , Non- Americans Ages 20-29 = 116 mL/min/1.73 sq.m. Ages 30-39 = 107 mL/min/1.73 sq.m. Ages 40-49 = 99 mL/min/1.73 sq.m. Ages 50-59 = 93 mL/min/1.73 sq.m. Ages 60-69 = 85 mL/min/1.73 sq.m. Ages 70+ = 75 mL/min/1.73 sq.m. Chronic Kidney Disease: Less than 60 mL/min/1.73 square meters End Stage Renal Disease: Less than 15 mL/min/1.73 square meters Performed By: #### G RUSTY KAUFFMAN ABOGEL, BMP #### [address] [address] ABO/Rh (Gel)on 01-01-2024 ABO/Rh Interp Positive Invalid Interpretation Code [facility] ([place]) Comment on above: Performed By: #### A YOUNG, GFR, BMP, CBC, ADIFF #### [address] [address] ABS (Gel)on 01-01-2024 ABSC Interp (Gel) Negative Normal [facility] ([place]) Comment on above: Performed By: #### A YOUNG, GFR, BMP, CBC, ADIFF #### [address] [address] BMPon 01-01-2024 BUN/Creatinine Ratio 40 ratio High 7-27 [facility] ([place]) Comment on above: Performed By: #### G RUSTY KAUFFMAN ABOGEL BMP #### [address] [address] Calcium [Mass/Vol] 9.2 mg/dL Normal 8.4-10.2 [facility] ([place]) Comment on above: Performed By: #### RUSTY VERA ABOGEL BMP #### [address] [address] Chloride [Moles/Vol] 98 mmol/L Normal 98-107 [facility] ([place]) Comment on above: Performed By: #### RUSTY VERA ABOGEL BMP #### [address] [address] CO2 [Moles/Vol] 26 mmol/L Normal 23-31 [facility] ([place]) Comment on above: Performed By: #### RUSTY VERA ABOGEL, BMP #### [address] [address] Creatinine [Mass/Vol] 0.70 mg/dL Normal 0.55-1.02 [facility] ([place]) Comment on above: Performed By: #### RUSTY VERA ABOGEL, BMP #### [address] [address] Electrolyte Balance 9.0 mEq/L Normal 4.0-15.0 [facility] ([place]) Comment on above: Performed By: #### Kat KAUFFMAN ABSHASEEB ABOGEL, BMP #### [place] [address] [place], [place] [address] Glucose [Mass/Vol] 94 mg/dL Normal 83-110 [facility] ([place]) Comment on above: Performed By: #### G RUSTY KAUFFMAN ABOGEL BMP #### [address] [place], [place] [address] Potassium [Moles/Vol] 4.3 mmol/L Normal 3.5-5.1 [facility] ([place]) Comment on above: Performed By: #### G RUSTY KAUFFMAN ABOGEL BMP #### [address] [place] [id number] [place], [place] [address] Sodium [Moles/Vol] 133 mmol/L Low 136-145 [facility] ([place]) Comment on above: Performed By: #### RUSTY VERA ABOGEL BMP #### [place] [address] [place], [place] [address] Urea nitrogen [Mass/Vol] 28 mg/dL High 7-18 [facility] ([place]) Comment on above: Performed By: #### G RUSTY KAUFFMAN ABOGEL BMP #### [place] [address] [place], [place] [address] LABORATORYOrdered By: Scooby Auguste on 01-01-2024 ABO and Rh group Nom (Bld) Blood group A Rh(D) positive Invalid Interpretation Code AO BB Auto SS Blood group antibody screen Ql Negative ABSC (01/01/24 6:40 AM) Normal AO BB Auto SS LABORATORYOrdered By: SYSTEM SYSTEM on 01-01-2024 Calcium [Mass/Vol] 9.2 mg/dL Normal 8.4 - 10. 2 mg/dL AO ADM SS Chloride [Moles/Vol] 98 mmol/L Normal 98 - 10 7 mmol/L AO ADM SS CO2 [Moles/Vol] 26 mmol/L Normal 23 - 31 mmol/L AO ADM SS Creatinine [Mass/Vol] 0.70 mg/dL Normal 0.55 - 1.02 mg/dL AO ADM SS Electrolyte Balance 9.0 mEq/L Normal 4.0 - 15 .0 mEq/L AO ADM SS GFR/1.73 sq M.predicted among blacks MDRD (S/P/Bld) [Vol rate/Area] 96 ml/min/1.73sqm Invalid Interpretation Code AO Chemistry S Comment on above: Interpretive Data: GFR Population mean for , Non- Americans Ages 20-29 = 116 mL/min/1.73 sq.m. Ages 30-39 = 107 mL/min/1.73 sq.m. Ages 40-49 = 99 mL/min/1.73 sq.m. Ages 50-59 = 93 mL/min/1.73 sq.m. Ages 60-69 = 85 mL/min/1.73 sq.m. Ages 70+ = 75 mL/min/1.73 sq.m. Chronic Kidney Disease: Less than 60 mL/min/1.73 square meters End Stage Renal Disease: Less than 15 mL/min/1.73 square meters GFR/1.73 sq M.predicted among non-blacks MDRD (S/P/Bld) [Vol rate/Area] 80 ml/min/1.73sqm Invalid Interpretation Code AO Chemistry S Comment on above: Interpretive Data: GFR Population mean for , Non- Americans Ages 20-29 = 116 mL/min/1.73 sq.m. Ages 30-39 = 107 mL/min/1.73 sq.m. Ages 40-49 = 99 mL/min/1.73 sq.m. Ages 50-59 = 93 mL/min/1.73 sq.m. Ages 60-69 = 85 mL/min/1.73 sq.m. Ages 70+ = 75 mL/min/1.73 sq.m. Chronic Kidney Disease: Less than 60 mL/min/1.73 square meters End Stage Renal Disease: Less than 15 mL/min/1.73 square meters Glucose [Mass/Vol] 94 mg/dL Normal 83 - 110 mg/dL AO ADM SS Potassium [Moles/Vol] 4.3 mmol/L Normal 3.5 - 5.1 mmol/L AO ADM SS Sodium [Moles/Vol] 133 mmol/L Low 136 - 145 mmol/L AO ADM SS Urea nitrogen [Mass/Vol] 28 mg/dL High 7 - 18 mg/dL AO ADM SS Urea nitrogen/Creatinine [Mass ratio] 40 ratio High 7 - 27 ratio AO ADM SS XR FLUORO 1-2 HRS [facility] TIMEo n 01-01-2024 XR FLUORO 1-2 HRS TECH TIME ORIGINAL Images acquired, not reported on this accession number. Normal [facility] ([place]) XR HIP LEFT W/PELVIS 4 VIEWS on 01-01-2024 XR HIP LEFT W/PELVIS 4 VIEWS ORIGINAL EXAMINATION: ONE XRAY VIEW OF THE PELVIS AND TWO XRAY VIEWS LEFT HIP 01/01/2024 10:49 am COMPARISON: 10/12/2023 HISTORY: ORDERING SYSTEM PROVIDED HISTORY: Reason for Exam: Status Post Arthroplasty FINDINGS: The SI joints and pubic symphysis are not abnormally widened. No acute displaced pelvic fracture is identified. There is a left hip prosthesis. The components appear well seated and intact. Overlying subcutaneous emphysema could be consistent with immediate postoperative state. No acute fracture or dislocation. IMPRESSION: Surgical changes. Interpreted by: Saira Edmonds MD Preliminary Report By: Saira Edmonds MD Electronically signed By Saira Edmonds MD Dictated Date: 01/01/2024 11:09:20 AM Prelim Date: 01/01/2024 11:10:19 AM Sign Date: 01/01/2024 11:10:19 AM Ordering Provider: KEELY HERRERA Normal [facility] ([place]) .GFRon 12-27-2023 GFR 68 ml/min/1.73sqm Normal [facility] ([place]) Comment on above: Result Comment: GFR Population mean for , Non- Americans Ages 20-29 = 116 mL/min/1.73 sq.m. Ages 30-39 = 107 mL/min/1.73 sq.m. Ages 40-49 = 99 mL/min/1.73 sq.m. Ages 50-59 = 93 mL/min/1.73 sq.m. Ages 60-69 = 85 mL/min/1.73 sq.m. Ages 70+ = 75 mL/min/1.73 sq.m. Chronic Kidney Disease: Less than 60 mL/min/1.73 square meters End Stage Renal Disease: Less than 15 mL/min/1.73 square meters Performed By: #### N AUR #### [place] [address] [place], [place] [address] #### OSMOU #### [address] [address] GFR Non- 56 ml/min/1.73sqm Normal [facility] ([place]) Comment on above: Result Comment: GFR Population mean for , Non- Americans Ages 20-29 = 116 mL/min/1.73 sq.m. Ages 30-39 = 107 mL/min/1.73 sq.m. Ages 40-49 = 99 mL/min/1.73 sq.m. Ages 50-59 = 93 mL/min/1.73 sq.m. Ages 60-69 = 85 mL/min/1.73 sq.m. Ages 70+ = 75 mL/min/1.73 sq.m. Chronic Kidney Disease: Less than 60 mL/min/1.73 square meters End Stage Renal Disease: Less than 15 mL/min/1.73 square meters Performed By: #### N AUR #### [address] [address] #### OSMOU #### [address] [address] [facility] Albumin Level 4.2 G/dL Normal 3.4-4.8 [facility] ([place]) Comment on above: Performed By: #### N AUR #### [address] [address] #### OSMOU #### [address] [address] Albumin/Globulin [Mass ratio] 1.5 {ratio} Normal 1.1-2.5 [facility] ([place]) Comment on above: Performed By: #### N AUR #### [address] [address] #### OSMOU #### [address] [address] ALP [Catalytic activity/Vol] 101 U/L Normal 40-135 [facility] ([place]) Comment on above: Performed By: #### N AUR #### [address] [address] #### OSMOU #### [address] [address] ALT [Catalytic activity/Vol] 11 U/L Low 14-59 [facility] ([place]) Comment on above: Performed By: #### N AUR #### [place] [id number] #### OSMOU #### [address] [address] AST [Catalytic activity/Vol] 17 U/L Normal 10-40 [facility] ([place]) Comment on above: Performed By: #### N AUR #### [place] [address] #### OSMOU #### [address] [address] Bili Total 0.7 mg/dL Normal 0.2-1.0 [facility] ([place]) Comment on above: Result Comment: Use of this assay is not recommended for patients undergoing treatment with eltrombopag due to the potential for falsely elevated results. Performed By: #### N AUR #### [place] [address] #### OSMOU #### [address] [address] BUN/Creatinine Ratio 28 ratio High 7-27 [facility] ([place] Comment on above: Performed By: #### N AUR #### [place] [address] #### OSMOU #### [address] [address] Calcium [Mass/Vol] 9.7 mg/dL Normal 8.4-10.2 [facility] ([place] Comment on above: Performed By: #### N AUR #### [place] [id number] #### OSMOU #### [address] [address] Chloride [Moles/Vol] 99 mmol/L Normal 98-107 [facility] ([place] Comment on above: Performed By: #### N AUR #### [place] [id number] #### OSMOU #### [address] [address] CO2 [Moles/Vol] 26 mmol/L Normal 23-31 [facility] ([place]) Comment on above: Performed By: #### N AUR #### [address] [address] #### OSMOU #### [address] [address] Creatinine [Mass/Vol] 0.95 mg/dL Normal 0.55-1.02 [facility] ([place]) Comment on above: Performed By: #### N AUR #### [address] [address] #### OSMOU #### [address] [address] Electrolyte Balance 8.0 mEq/L Normal 4.0-15.0 [facility] ([place]) Comment on above: Performed By: #### N AUR #### [address] [address] #### OSMOU #### [place] [address] Globulin 2.8 G/dL Normal [facility] ([place] Comment on above: Performed By: #### N AUR #### [address] [address] #### OSMOU #### [address] [address] Glucose [Mass/Vol] 130 mg/dL High 83-110 [facility] ([place]) Comment on above: Performed By: #### N AUR #### [address] [address] #### OSMOU #### [address] [address] Potassium [Moles/Vol] 5.7 mmol/L High 3.5-5.1 [facility] ([place]) Comment on above: Performed By: #### N AUR #### [address] [address] #### OSMOU #### [address] [address] Sodium [Moles/Vol] 133 mmol/L Low 136-145 [facility] ([place]) Comment on above: Performed By: #### N AUR #### [address] [address] #### OSMOU #### [facility] [address] [place] [id number] Total Protein 7.0 G/dL Normal 6.4-8.2 [facility] ([place]) Comment on above: Performed By: #### N AUR #### [address] [address] #### OSMOU #### [address] [address] Urea nitrogen [Mass/Vol] 27 mg/dL High 7-18 [facility] ([place]) Comment on above: Performed By: #### N AUR #### [address] [address] #### OSMOU #### [place] [address] LABORATORYOrdered By: SYSTEM SYSTEM on 12-27-2023 Albumin BCP dye [Mass/Vol] 4.2 G/dL Normal 3.4 - 4.8 G/dL AO ADM SS Albumin/Globulin [Mass ratio] 1.5 {ratio} Normal 1.1 - 2.5 ratio AO ADM SS ALP [Catalytic activity/Vol] 101 U/L Normal 40 - 135 U/L AO ADM SS ALT With P-5'-P [Catalytic activity/Vol] 11 U/L Low 14 - 59 U/L AO ADM SS AST With P-5'-P [Catalytic activity/Vol] 17 U/L Normal 10 - 40 U/L AO ADM SS Bilirubin [Mass/Vol] 0.7 mg/dL Normal 0.2 - 1 .0 mg/dL AO ADM SS Comment on above: Interpretive Data: U se of this assay is not recommended for patients undergoing treatment with eltrombopag due to the potential for falsely elevated results. Calcium [Mass/Vol] 9.7 mg/dL Normal 8.4 - 10. 2 mg/dL AO ADM SS Chloride [Moles/Vol] 99 mmol/L Normal 98 - 10 7 mmol/L AO ADM SS CO2 [Moles/Vol] 26 mmol/L Normal 23 - 31 mmol/L AO ADM SS Creatinine [Mass/Vol] 0.95 mg/dL Normal 0.55 - 1.02 mg/dL AO ADM SS Electrolyte Balance 8.0 mEq/L Normal 4.0 - 15 .0 mEq/L AO ADM SS GFR/1.73 sq M.predicted among blacks MDRD (S/P/Bld) [Vol rate/Area] 68 ml/min/1.73sqm Invalid Interpretation Code AO Chemistry S Comment on above: Interpretive Data: GFR Population mean for , Non- Americans Ages 20-29 = 116 mL/min/1.73 sq.m. Ages 30-39 = 107 mL/min/1.73 sq.m. Ages 40-49 = 99 mL/min/1.73 sq.m. Ages 50-59 = 93 mL/min/1.73 sq.m. Ages 60-69 = 85 mL/min/1.73 sq.m. Ages 70+ = 75 mL/min/1.73 sq.m. Chronic Kidney Disease: Less than 60 mL/min/1.73 square meters End Stage Renal Disease: Less than 15 mL/min/1.73 square meters GFR/1.73 sq M.predicted among non-blacks MDRD (S/P/Bld) [Vol rate/Area] 56 ml/min/1.73sqm Invalid Interpretation Code AO Chemistry S Comment on above: Interpretive Data: GFR Population mean for , Non- Americans Ages 20-29 = 116 mL/min/1.73 sq.m. Ages 30-39 = 107 mL/min/1.73 sq.m. Ages 40-49 = 99 mL/min/1.73 sq.m. Ages 50-59 = 93 mL/min/1.73 sq.m. Ages 60-69 = 85 mL/min/1.73 sq.m. Ages 70+ = 75 mL/min/1.73 sq.m. Chronic Kidney Disease: Less than 60 mL/min/1.73 square meters End Stage Renal Disease: Less than 15 mL/min/1.73 square meters Globulin 2.8 G/dL Invalid Interpretation Code AO ADM SS Glucose [Mass/Vol] 130 mg/dL High 83 - 110 mg/dL AO ADM SS Potassium [Moles/Vol] 5.7 mmol/L High 3.5 - 5.1 mmol/L AO ADM SS Protein [Mass/Vol] 7.0 G/dL Normal 6.4 - 8.2 G/dL AO ADM SS Sodium [Moles/Vol] 133 mmol/L Low 136 - 145 mmol/L AO ADM SS Urea nitrogen [Mass/Vol] 27 mg/dL High 7 - 18 mg/dL AO ADM SS Urea nitrogen/Creatinine [Mass ratio] 28 ratio High 7 - 27 ratio AO ADM SS NM MYOCARDIAL SPECT STRESS/R ESTon 12-26-2023 NM MYOCARDIAL SPECT STRESS/REST ORIGINAL NM MYOCARDIAL SPECT STRESS/REST CLINICAL STATEMENT: preop, htn, sob TECHNIQUE: Lexiscan dose:0.4 mg Radiopharmaceutical (stress): Tc-99m Sestamibi Dose:32.8 mCi Radiopharmaceutical (rest): Tc-99m Sestamibi Dose:10.7 mCi SPECT acquisition and processing Reconstruction and reorientation of SPECT images into short axis, vertical and horizontal long axis planes Quantitative LVEF assessment COMPARISON:None REPORT: Poststress myocardial perfusion images showed severe perfusion defect at the apical inferior wall extending to entire inferior wall and apical lateral wall Resting images showed similar perfusion defect LVEF 69% with normal wall motion and wall thickening TID 1.07 IMPRESSION: Negative for gross ischemia or infarct imaging part of the stress test Fixed perfusion defect at the inferior wall most likely due to artifact, some GI uptake was noted at the inferior wall. Wall motion is preserved at the inferior wall LVEF 69% with normal wall motion Interpreted By: Tomer Campbell Preliminary Report By: Tomer Campbell Electronically Signed By: Tomer Campbell Dictated Date: 12/26/2023 12:59:35 PM Prelim Date: 12/26/2023 12:59:35 PM Sign Date: 12/26/2023 1:01:57 PM Ordering Provider:Virginia Jeffries [facility] ([place]) .Auto Diffon 12-10-2023 Basophil, Absolute 0.0 10 3/mcL Normal 0.0-0.2 [facility]) Comment on above: Performed By: #### A YOUNG, GFR, BMP, CBC, ADIFF #### [place] [address] [place], [place] [address] Basophils/100 WBC (Bld) 0.6 % Normal 0.0-2.5 [facility] ([place]) Comment on above: Performed By: #### A YOUNG, GFR, BMP, CBC, ADIFF #### [address] [address] Eosinophil, Absolute 0.1 10 3/mcL Normal 0.0-0.4 [facility] ([place]) Comment on above: Performed By: #### A YOUNG, GFR, BMP, CBC, ADIFF #### [address] [address] Eosinophils/100 WBC (Bld) 1.0 % Normal 0.0-7.0 [facility] ([place]) Comment on above: Performed By: #### A YOUNG, GFR, BMP, CBC, ADIFF #### [address] [address] Lymphocyte, Absolute 1.3 10 3/mcL Normal 0.8-3.9 [facility] ([place]) Comment on above: Performed By: #### A YOUNG, GFR, BMP, CBC, ADIFF #### [address] [address] Lymphocytes/100 WBC (Bld) 17.4 % Normal 10.0-50.0 [facility] ([place]) Comment on above: Performed By: #### A YOUNG, GFR, BMP, CBC, ADIFF #### [address] [address] Monocyte, Absolute 0.5 10 3/mcL Normal 0.2-1.0 [facility] ([place]) Comment on above: Performed By: #### A YOUNG, GFR, BMP, CBC, ADIFF #### [address] [address] Monocytes/100 WBC (Bld) 7.4 % Normal 1.7-13.0 [facility] ([place]) Comment on above: Performed By: #### A YOUNG, GFR, BMP, CBC, ADIFF #### [address] [address] Neutrophils/100 WBC (Bld) 73.6 % Normal 37.0-80.0 [facility] ([place]) Comment on above: Performed By: #### A YOUNG, GFR, BMP, CBC, ADIFF #### [address] [address] .GFRon 12-10-2023 GFR 79 ml/min/1.73sqm Normal [facility] ([place]) Comment on above: Result Comment: GFR Population mean for , Non- Americans Ages 20-29 = 116 mL/min/1.73 sq.m. Ages 30-39 = 107 mL/min/1.73 sq.m. Ages 40-49 = 99 mL/min/1.73 sq.m. Ages 50-59 = 93 mL/min/1.73 sq.m. Ages 60-69 = 85 mL/min/1.73 sq.m. Ages 70+ = 75 mL/min/1.73 sq.m. Chronic Kidney Disease: Less than 60 mL/min/1.73 square meters End Stage Renal Disease: Less than 15 mL/min/1.73 square meters Performed By: #### A YOUNG, GFR, BMP, CBC, ADIFF #### [address] [address] GFR Non- 65 ml/min/1.73sqm Normal [facility] ([place]) Comment on above: Result Comment: GFR Population mean for , Non- Americans Ages 20-29 = 116 mL/min/1.73 sq.m. Ages 30-39 = 107 mL/min/1.73 sq.m. Ages 40-49 = 99 mL/min/1.73 sq.m. Ages 50-59 = 93 mL/min/1.73 sq.m. Ages 60-69 = 85 mL/min/1.73 sq.m. Ages 70+ = 75 mL/min/1.73 sq.m. Chronic Kidney Disease: Less than 60 mL/min/1.73 square meters End Stage Renal Disease: Less than 15 mL/min/1.73 square meters Performed By: #### A YOUNG, GFR, BMP, CBC, ADIFF #### [address] [address] .NEUABSon 12-10-2023 Neutrophil, Absolute 5.4 10 3/mcL Normal 2.9-6.2 [facility] ([place]) Comment on above: Performed By: #### A YOUNG, GFR, BMP, CBC, ADIFF #### [address] [address] ALBon 12-10-2023 Albumin Level 4.1 G/dL Normal 3.4-4.8 [facility] ([place]) Comment on above: Performed By: #### A YOUNG, GFR, BMP, CBC, ADIFF #### [address] [address] BMPon 12-10-2023 BUN/Creatinine Ratio 29 ratio High 7-27 [facility] ([place]) Comment on above: Performed By: #### A YOUNG, GFR, BMP, CBC, ADIFF #### [address] [address] Calcium [Mass/Vol] 9.2 mg/dL Normal 8.4-10.2 [facility] ([place]) Comment on above: Performed By: #### A YOUNG, GFR, BMP, CBC, ADIFF #### [address] [address] Chloride [Moles/Vol] 98 mmol/L Normal 98-107 [facility] ([place]) Comment on above: Performed By: #### A YOUNG, GFR, BMP, CBC, ADIFF #### [address] [address] CO2 [Moles/Vol] 28 mmol/L Normal 23-31 [facility] ([place]) Comment on above: Performed By: #### A YOUNG, GFR, BMP, CBC, ADIFF #### [address] [address] Creatinine [Mass/Vol] 0.83 mg/dL Normal 0.55-1.02 [facility] ([place]) Comment on above: Performed By: #### A YOUNG, GFR, BMP, CBC, ADIFF #### [address] [address] Electrolyte Balance 5.0 mEq/L Normal 4.0-15.0 [facility] ([place]) Comment on above: Performed By: #### A YOUNG, GFR, BMP, CBC, ADIFF #### [address] [address] Glucose [Mass/Vol] 102 mg/dL Normal 83-110 [facility] ([place]) Comment on above: Performed By: #### A YOUNG, GFR, BMP, CBC, ADIFF #### [address] [address] Potassium [Moles/Vol] 4.4 mmol/L Normal 3.5-5.1 [facility] ([place]) Comment on above: Performed By: #### A YOUNG, GFR, BMP, CBC, ADIFF #### [address] [address] Sodium [Moles/Vol] 131 mmol/L Low 136-145 [facility] ([place]) Comment on above: Performed By: #### A YOUNG, GFR, BMP, CBC, ADIFF #### [address] [address] Urea nitrogen [Mass/Vol] 24 mg/dL High 7-18 [facility] ([place]) Comment on above: Performed By: #### A YOUNG, GFR, BMP, CBC, ADIFF #### [address] [address] CBCon 12-10-2023 Erythrocyte distribution width (RBC) [Ratio] 13.8 % Normal 11.5-14.5 [facility] ([place]) Comment on above: Order Comment: Pre-A dmission Testing Performed By: #### A YOUNG, GFR, BMP, CBC, ADIFF #### [address] [address] Hematocrit (Bld) [Volume fraction] 37.5 % Normal 37.0-47.0 [facility] ([place]) Comment on above: Order Comment: Pre-A dmission Testing Performed By: #### A YOUNG, GFR, BMP, CBC, ADIFF #### [address] [address] Hgb 13.0 G/dL Normal 12.0-16.0 [facility] ([place]) Comment on above: Order Comment: Pre-A dmission Testing Performed By: #### A YOUNG, GFR, BMP, CBC, ADIFF #### [address] [address] MCH (RBC) [Entitic mass] 32.9 pg High 27.0-31.2 [facility] ([place]) Comment on above: Order Comment: Pre-A dmission Testing Performed By: #### A YOUNG, GFR, BMP, CBC, ADIFF #### [address] [address] MCHC 34.7 G/dL Normal 33.0-37.0 [facility] ([place]) Comment on above: Order Comment: Pre-A dmission Testing Performed By: #### A YOUNG, GFR, BMP, CBC, ADIFF #### [address] [address] MCV (RBC) [Entitic vol] 95.0 fL High 80.0-94.0 [facility] ([place]) Comment on above: Order Comment: Pre-A dmission Testing Performed By: #### A YOUNG, GFR, BMP, CBC, ADIFF #### [address] [address] Platelet 200 10 3/mcL Normal 130-400 [facility] ([place]) Comment on above: Order Comment: Pre-A dmission Testing Performed By: #### A YOUNG, GFR, BMP, CBC, ADIFF #### [address] [address] Platelet mean volume (Bld) [Entitic vol] 8.4 fL Normal 7.4-10.4 [facility] ([place]) Comment on above: Order Comment: Pre-A dmission Testing Performed By: #### A YOUNG, GFR, BMP, CBC, ADIFF #### [address] [address] RBC 3.95 10 6/mcL Low 4.20-5.40 [facility] ([place]) Comment on above: Order Comment: Pre-A dmission Testing Performed By: #### A YOUNG, GFR, BMP, CBC, ADIFF #### [place] [id number] [place], [place] [address] WBC 7.3 10 3/mcL Normal 4.6-10.8 [facility] ([place]) Comment on above: Order Comment: Pre-A dmission Testing Performed By: #### A YOUNG, GFR, BMP, CBC, ADIFF #### [place] [address] [place], [place] [address] CT HIP W/O CONTRAST LEFTon 0 12-10-2023 CT HIP W/O CONTRAST LEFT ORIGINAL EXAMINATION: CT OF THE LEFT HIP WITHOUT CONTRAST 12/10/2023 1:16 pm TECHNIQUE: CT of the left hip was performed without the administration of intravenous contrast. Multiplanar reformatted images are provided for review. Automated exposure control, iterative reconstruction, and/or weight based adjustment of the mA/kV was utilized to reduce the radiation dose to as low as reasonably achievable. COMPARISON: None. HISTORY ORDERING SYSTEM PROVIDED HISTORY: Reason for Exam: chronic lt hip pain. no recent injury. RICHARD protocol. FINDINGS: Preoperative planning CT performed per Richard protocol. No acute fractures visualized. Advanced degenerative changes seen in the left hip with [id number] arthropathy. There are large hypertrophic spurs as well as large subchondral cysts in both the left femoral head and left acetabulum.. There also qpcq-[id number] degenerative changes in the right hip. There is chondrocalcinosis in the knees with associated degenerative changes bilaterally. Degenerative changes seen in the visualized portion of the lumbar spine Diverticula seen in the visualized portion of the colon. No focal inflammatory changes seen in the pelvis. Vascular calcifications seen of the aorta and larger pelvic vessels. No suspicious findings seen in the soft tissues. IMPRESSION: 1. Preoperative planning CT performed per Richard protocol. 2. Advanced degenerative changes in the left hip. 3. [id number] degenerative changes in the right hip 4. Chondrocalcinosis in the knees with associated degenerative changes Interpreted by: Jesus Head MD Preliminary Report By: Jesus Head MD Electronically signed By Jesus Head MD Dictated Date: 12/10/2023 4:18:50 PM Prelim Date: 12/10/2023 4:21:56 PM Sign Date: 12/10/2023 4:21:56 PM Ordering Provider: KEELY Jeffries [facility] ([place]) LABORATORYOrdered By: SYSTEM SYSTEM on 12-10-2023 Albumin BCP dye [Mass/Vol] 4.1 G/dL Normal 3.4 - 4.8 G/dL AO ADM SS Basophil, Absolute 0.0 103/mcL Normal 0.0 - 0.2 10^3/mcL AO Workflow SS Basophils/100 WBC (Bld) 0.6 % Normal 0.0 - 2.5 % AO Workflow SS Calcium [Mass/Vol] 9.2 mg/dL Normal 8.4 - 10. 2 mg/dL AO ADM SS Chloride [Moles/Vol] 98 mmol/L Normal 98 - 10 7 mmol/L AO ADM SS CO2 [Moles/Vol] 28 mmol/L Normal 23 - 31 mmol/L AO ADM SS Creatinine [Mass/Vol] 0.83 mg/dL Normal 0.55 - 1.02 mg/dL AO ADM SS Electrolyte Balance 5.0 mEq/L Normal 4.0 - 15 .0 mEq/L AO ADM SS Eosinophil, Absolute 0.1 103/mcL Normal 0.0 - 0 .4 10^3/mcL AO Workflow SS Eosinophils/100 WBC (Bld) 1.0 % Normal 0.0 - 7.0 % AO Workflow SS Erythrocyte distribution width (RBC) [Ratio] 13.8 % Normal 11.5 - 14.5 % AO Workflow SS GFR/1.73 sq M.predicted among blacks MDRD (S/P/Bld) [Vol rate/Area] 79 ml/min/1.73sqm Invalid Interpretation Code AO Chemistry S Comment on above: Interpretive Data: GFR Population mean for , Non- Americans Ages 20-29 = 116 mL/min/1.73 sq.m. Ages 30-39 = 107 mL/min/1.73 sq.m. Ages 40-49 = 99 mL/min/1.73 sq.m. Ages 50-59 = 93 mL/min/1.73 sq.m. Ages 60-69 = 85 mL/min/1.73 sq.m. Ages 70+ = 75 mL/min/1.73 sq.m. Chronic Kidney Disease: Less than 60 mL/min/1.73 square meters End Stage Renal Disease: Less than 15 mL/min/1.73 square meters GFR/1.73 sq M.predicted among non-blacks MDRD (S/P/Bld) [Vol rate/Area] 65 ml/min/1.73sqm Invalid Interpretation Code AO Chemistry S Comment on above: Interpretive Data: GFR Population mean for , Non- Americans Ages 20-29 = 116 mL/min/1.73 sq.m. Ages 30-39 = 107 mL/min/1.73 sq.m. Ages 40-49 = 99 mL/min/1.73 sq.m. Ages 50-59 = 93 mL/min/1.73 sq.m. Ages 60-69 = 85 mL/min/1.73 sq.m. Ages 70+ = 75 mL/min/1.73 sq.m. Chronic Kidney Disease: Less than 60 mL/min/1.73 square meters End Stage Renal Disease: Less than 15 mL/min/1.73 square meters Glucose [Mass/Vol] 102 mg/dL Normal 83 - 110 mg/dL AO ADM SS Hematocrit (Bld) [Volume fraction] 37.5 % Normal 37.0 - 47.0 % AO Workflow SS Hemoglobin (Bld) [Mass/Vol] 13.0 G/dL Normal 12.0 - 16.0 G/dL AO Workflow SS Lymphocyte, Absolute 1.3 103/mcL Normal 0.8 - 3 .9 10^3/mcL AO Workflow SS Lymphocytes/100 WBC (Bld) 17.4 % Normal 10.0 - 50.0 % AO Workflow SS MCH (RBC) [Entitic mass] 32.9 pg High 27.0 - 31.2 pg AO Workflow SS MCHC 34.7 G/dL Normal 33.0 - 37.0 G/dL AO Workflow SS MCV (RBC) [Entitic vol] 95.0 fL High 80.0 - 94.0 fL AO Workflow SS Monocyte, Absolute 0.5 103/mcL Normal 0.2 - 1.0 10^3/mcL AO Workflow SS Monocytes/100 WBC (Bld) 7.4 % Normal 1.7 - 13.0 % AO Workflow SS Neutrophil, Absolute 5.4 103/mcL Normal 2.9 - 6 .2 10^3/mcL AO Workflow SS Neutrophils/100 WBC (Bld) 73.6 % Normal 37.0 - 80.0 % AO Workflow SS Platelet mean volume (Bld) [Entitic vol] 8.4 fL Normal 7.4 - 10.4 fL AO Workflow SS Platelets (Bld) [#/Vol] 200 103/mcL Normal 130 - 400 10^3/mcL AO Workflow SS Potassium [Moles/Vol] 4.4 mmol/L Normal 3.5 - 5.1 mmol/L AO ADM SS RBC (Bld) [#/Vol] 3.95 106/mcL Low 4.20 - 5.4 0 10^6/mcL AO Workflow SS Sodium [Moles/Vol] 131 mmol/L Low 136 - 145 mmol/L AO ADM SS Urea nitrogen [Mass/Vol] 24 mg/dL High 7 - 18 mg/dL AO ADM SS Urea nitrogen/Creatinine [Mass ratio] 29 ratio High 7 - 27 ratio AO ADM SS WBC (Bld) [#/Vol] 7.3 103/mcL Normal 4.6 - 10.8 10^3/mcL AO Workflow SS LABORATORYOrdered By: Treva Flores on 12-10-2023 MRSA (PCR) Not Detected 1 (12/10/23 11:41 AM) Normal Not Detected Auto Viro/Sero SS Comment on above: Result Comment: [place] [id number] MRSA PCR Int MRSA DNA not detecte d by Real-Time Polymerase Chain Reaction (PCR). A negative result may be due to intermittent colonization. Colonization may vary depending on patient treatment, patient status, or exposure to high-risk environments.As with all PCR based in vitro diagnostic tests, extremely low levels of target below the limit of detection of the assay may be detected, but results may not be reproducible. Invalid Interpretation Code Auto Viro/Sero SS MRSAPCRon 12-10-2023 MRSA (PCR) Not detected Normal Not Detected [facility] ([place]) Comment on above: Result Comment: [place] [id number] Performed By: #### M RSAPCR #### [place] [address] MRSA PCR Int Normal [facility] ([place]) Comment on above: Result Comment: MRSA DNA not detected by Real-Time Polymerase Chain Reaction (PCR). A negative result may be due to intermittent colonization. Colonization may vary depending on patient treatment, patient status, or exposure to high-risk environments. As with all PCR based in vitro diagnostic tests, extremely low levels of target below the limit of detection of the assay may be detected, but results may not be reproducible. See Below Performed By: #### M RSAPCR #### [address] [address] XR SPINE LUMBAR W/OBLIQUES 4 VIEWSon 10-13-2023 XR SPINE LUMBAR W/OBLIQUES 4 VIEWS ORIGINAL EXAMINATION: 5 XRAY VIEWS OF THE LUMBAR SPINE 10/12/2023 12:53 pm COMPARISON: None. HISTORY: ORDERING SYSTEM PROVIDED HISTORY: Reason for Exam: chronic back pain not improved with conservative out patient measures FINDINGS: 15 degree dextroscoliosis present in the upper lumbar region. No acute fracture or spondylolisthesis is seen. Multilevel moderate degenerative disc disease affects L2-3, L3-4, L4-5 and L5-S1. There is diffuse bilateral facet arthropathy. Sacroiliac joints are preserved. IMPRESSION: 1. 15 degree upper lumbar dextroscoliosis and multilevel degenerative disc disease. 2. No acute bony abnormality. Interpreted by: Jesus Laguerre DO Preliminary Report By: Jesus Laguerre DO Electronically signed By Jesus Laguerre DO Dictated Date: 10/13/2023 10:28:30 AM Prelim Date: 10/13/2023 10:30:06 AM Sign Date: 10/13/2023 10:30:06 AM Ordering Provider: KEIVN CHERY [facility] ([place]) XR HIP 2-3 VIEWS LEFTon 09-27 XR HIP 2-3 VIEWS LEFT ORIGINAL EXAMINATION: XRAY VIEWS OF THE LEFT HIP 10/12/2023 12:51 pm COMPARISON: None. HISTORY: ORDERING SYSTEM PROVIDED HISTORY: Reason for Exam: chronic hip pain not improved with conservative out patient measures FINDINGS: The left femoral head is seated within the acetabulum. The joint space is severely narrowed with subchondral cyst formation, subchondral eburnation and marginal osteophyte formation. No acute fracture, dislocation or radiopaque foreign bodies. IMPRESSION: Severe left hip osteoarthritis. No acute osseous abnormality of the left hip Interpreted by: Clint Diop MD Preliminary Report By: Clint Diop MD Electronically signed By Clint Diop MD Dictated Date: 10/12/2023 2:09:29 PM Prelim Date: 10/12/2023 2:09:56 PM Sign Date: 10/12/2023 2:09:56 PM Ordering Provider: KEVIN Jeffries [facility] ([place]) .Auto Diffon 10-04-2023 Basophil, Absolute 0.1 10 3/mcL Normal 0.0-0.2 [facility]) Comment on above: Performed By: #### A YOUNG, GFR, BMP, CBC, ADIFF #### [address] [address] Basophils/100 WBC (Bld) 0.9 % Normal 0.0-2.5 [facility] ([place]) Comment on above: Performed By: #### A YOUNG, GFR, BMP, CBC, ADIFF #### [address] [address] Eosinophil, Absolute 0.2 10 3/mcL Normal 0.0-0.4 [facility] ([place]) Comment on above: Performed By: #### A YOUNG, GFR, BMP, CBC, ADIFF #### [address] [address] Eosinophils/100 WBC (Bld) 2.9 % Normal 0.0-7.0 [facility] ([place]) Comment on above: Performed By: #### A YOUNG, GFR, BMP, CBC, ADIFF #### [address] [address] Lymphocyte, Absolute 1.3 10 3/mcL Normal 0.8-3.9 [facility] ([place]) Comment on above: Performed By: #### A YOUNG, GFR, BMP, CBC, ADIFF #### [address] [address] Lymphocytes/100 WBC (Bld) 19.6 % Normal 10.0-50.0 [facility] ([place]) Comment on above: Performed By: #### A YOUNG, GFR, BMP, CBC, ADIFF #### [address] [address] Monocyte, Absolute 0.6 10 3/mcL Normal 0.2-1.0 [facility] ([place]) Comment on above: Performed By: #### A YOUNG, GFR, BMP, CBC, ADIFF #### [address] [address] Monocytes/100 WBC (Bld) 9.3 % Normal 1.7-13.0 [facility] ([place]) Comment on above: Performed By: #### A YOUNG, GFR, BMP, CBC, ADIFF #### [address] [address] Neutrophils/100 WBC (Bld) 67.3 % Normal 37.0-80.0 [facility] ([place]) Comment on above: Performed By: #### A YOUNG, GFR, BMP, CBC, ADIFF #### [address] [address] .GFRon 10-04-2023 GFR 88 ml/min/1.73sqm Normal [facility] ([place]) Comment on above: Result Comment: GFR Population mean for , Non- Americans Ages 20-29 = 116 mL/min/1.73 sq.m. Ages 30-39 = 107 mL/min/1.73 sq.m. Ages 40-49 = 99 mL/min/1.73 sq.m. Ages 50-59 = 93 mL/min/1.73 sq.m. Ages 60-69 = 85 mL/min/1.73 sq.m. Ages 70+ = 75 mL/min/1.73 sq.m. Chronic Kidney Disease: Less than 60 mL/min/1.73 square meters End Stage Renal Disease: Less than 15 mL/min/1.73 square meters Performed By: #### A YOUNG, GFR, BMP, CBC, ADIFF #### [address] [address] GFR Non- 72 ml/min/1.73sqm Normal [facility] ([place]) Comment on above: Result Comment: GFR Population mean for , Non- Americans Ages 20-29 = 116 mL/min/1.73 sq.m. Ages 30-39 = 107 mL/min/1.73 sq.m. Ages 40-49 = 99 mL/min/1.73 sq.m. Ages 50-59 = 93 mL/min/1.73 sq.m. Ages 60-69 = 85 mL/min/1.73 sq.m. Ages 70+ = 75 mL/min/1.73 sq.m. Chronic Kidney Disease: Less than 60 mL/min/1.73 square meters End Stage Renal Disease: Less than 15 mL/min/1.73 square meters Performed By: #### A YOUNG, GFR, BMP, CBC, ADIFF #### [address] [address] .NEUABSon 10-04-2023 Neutrophil, Absolute 4.4 10 3/mcL Normal 2.9-6.2 [facility] ([place]) Comment on above: Performed By: #### A YOUNG, GFR, BMP, CBC, ADIFF #### [address] [address] CBCon 10-04-2023 Erythrocyte distribution width (RBC) [Ratio] 14.7 % High 11.5-14.5 [facility] ([place]) Comment on above: Performed By: #### A YOUNG, GFR, BMP, CBC, ADIFF #### [address] [address] Hematocrit (Bld) [Volume fraction] 37.2 % Normal 37.0-47.0 [facility] ([place]) Comment on above: Performed By: #### A YOUNG, GFR, BMP, CBC, ADIFF #### [address] [address] Hgb 12.6 G/dL Normal 12.0-16.0 [facility] ([place]) Comment on above: Performed By: #### A YOUNG, GFR, BMP, CBC, ADIFF #### [address] [address] MCH (RBC) [Entitic mass] 32.3 pg High 27.0-31.2 [facility] ([place]) Comment on above: Performed By: #### A YOUNG, GFR, BMP, CBC, ADIFF #### [place] [id number] MCHC 33.9 G/dL Normal 33.0-37.0 [facility] ([place]) Comment on above: Performed By: #### A YOUNG, GFR, BMP, CBC, ADIFF #### [address] [address] MCV (RBC) [Entitic vol] 95.4 fL High 80.0-94.0 [facility] ([place]) Comment on above: Performed By: #### A YOUNG, GFR, BMP, CBC, ADIFF #### [address] [address] Platelet 207 10 3/mcL Normal 130-400 [facility] ([place]) Comment on above: Performed By: #### A YOUNG, GFR, BMP, CBC, ADIFF #### [address] [address] Platelet mean volume (Bld) [Entitic vol] 9.0 fL Normal 7.4-10.4 [facility] ([place]) Comment on above: Performed By: #### A YOUNG, GFR, BMP, CBC, ADIFF #### [address] [address] RBC 3.90 10 6/mcL Low 4.20-5.40 [facility] ([place]) Comment on above: Performed By: #### A YOUNG, GFR, BMP, CBC, ADIFF #### [address] [address] WBC 6.5 10 3/mcL Normal 4.6-10.8 [facility] ([place]) Comment on above: Performed By: #### A YOUNG, GFR, BMP, CBC, ADIFF #### [address] [address] CMPon 10-04-2023 Albumin Level 4.0 G/dL Normal 3.4-4.8 [facility] ([place]) Comment on above: Performed By: #### A YOUNG, GFR, BMP, CBC, ADIFF #### [address] [address] Albumin/Globulin [Mass ratio] 1.3 {ratio} Normal 1.1-2.5 [facility]) Comment on above: Performed By: #### A YOUNG, GFR, BMP, CBC, ADIFF #### [address] [address] ALP [Catalytic activity/Vol] 103 U/L Normal 40-135 [facility] ([place]) Comment on above: Performed By: #### A YOUNG, GFR, BMP, CBC, ADIFF #### [address] [address] ALT [Catalytic activity/Vol] 8 U/L Low 14-59 [facility] ([place]) Comment on above: Performed By: #### A YOUNG, GFR, BMP, CBC, ADIFF #### [address] [address] AST [Catalytic activity/Vol] 28 U/L Normal 10-40 [facility] ([place]) Comment on above: Performed By: #### A YOUNG, GFR, BMP, CBC, ADIFF #### [address] [address] Bili Total 0.7 mg/dL Normal 0.2-1.0 [facility] ([place]) Comment on above: Result Comment: Use of this assay is not recommended for patients undergoing treatment with eltrombopag due to the potential for falsely elevated results. Performed By: #### A YOUNG, GFR, BMP, CBC, ADIFF #### [address] [address] BUN/Creatinine Ratio 14 ratio Normal 7-27 [facility] ([place]) Comment on above: Performed By: #### A YOUNG, GFR, BMP, CBC, ADIFF #### [address] [address] Calcium [Mass/Vol] 9.7 mg/dL Normal 8.4-10.2 [facility] ([place]) Comment on above: Performed By: #### A YOUNG, GFR, BMP, CBC, ADIFF #### [address] [address] Chloride [Moles/Vol] 97 mmol/L Low 98-107 [facility] ([place]) Comment on above: Performed By: #### A YOUNG, GFR, BMP, CBC, ADIFF #### [address] [address] CO2 [Moles/Vol] 26 mmol/L Normal 23-31 [facility] ([place]) Comment on above: Performed By: #### A YOUNG, GFR, BMP, CBC, ADIFF #### [address] [address] Creatinine [Mass/Vol] 0.76 mg/dL Normal 0.55-1.02 [facility] ([place]) Comment on above: Performed By: #### A YOUNG, GFR, BMP, CBC, ADIFF #### [address] [address] Electrolyte Balance 12.0 mEq/L Normal 4.0-15.0 [facility] ([place]) Comment on above: Performed By: #### A YOUNG, GFR, BMP, CBC, ADIFF #### [address] [address] Globulin 3.1 G/dL Normal [facility] ([place]) Comment on above: Performed By: #### A YOUNG, GFR, BMP, CBC, ADIFF #### [address] [address] Glucose [Mass/Vol] 92 mg/dL Normal 83-110 [facility] ([place]) Comment on above: Performed By: #### A YOUNG, GFR, BMP, CBC, ADIFF #### [address] [address] Potassium [Moles/Vol] 4.5 mmol/L Normal 3.5-5.1 [facility] ([place]) Comment on above: Performed By: #### A YOUNG, GFR, BMP, CBC, ADIFF #### [address] [address] Sodium [Moles/Vol] 135 mmol/L Low 136-145 [facility] ([place]) Comment on above: Performed By: #### A YOUNG, GFR, BMP, CBC, ADIFF #### [address] [address] Total Protein 7.1 G/dL Normal 6.4-8.2 [facility] ([place]) Comment on above: Performed By: #### A YOUNG, GFR, BMP, CBC, ADIFF #### [address] [address] Urea nitrogen [Mass/Vol] 11 mg/dL Normal 7-18 [facility] ([place]) Comment on above: Performed By: #### A YOUNG, GFR, BMP, CBC, ADIFF #### [address] [address] CRPon 10-04-2023 C-Reactive Protein 0.1 mg/dL Normal 0.0-0.3 [facility] ([place]) Comment on above: Performed By: #### A YOUNG, GFR, BMP, CBC, ADIFF #### [place] [id number] FEon 10-04-2023 Iron [Mass/Vol] 77 ug/dL Normal 50-170 [facility] ([place]) Comment on above: Performed By: #### A YOUNG, GFR, BMP, CBC, ADIFF #### [place] [address] IBCon 10-04-2023 TIBC 322 mcg/dL Normal 250-450 [facility] ([place]) Comment on above: Performed By: #### A YOUNG, GFR, BMP, CBC, ADIFF #### [place] [address] LABORATORYOrdered By: SYSTEM SYSTEM on 10-04-2023 Iron [Mass/Vol] 77 ug/dL Normal 50 - 170 mcg/dL AO ADM SS Iron binding capacity [Mass/Vol] 322 mcg/dL Normal 250 - 450 mcg/dL AO ADM SS 25-hydroxyvitamin D3 [Mass/Vol] 99.9 ng/mL Invalid Interpretation Code AO ADM SS Comment on above: Interpretive Data: I nterpretive Values Based on Total 25(OH) Vitamin D: Deficient <20 ng/mL Insufficient 20 - <30 ng/mL Sufficient 30-100 ng/mL Albumin BCP dye [Mass/Vol] 4.0 G/dL Normal 3.4 - 4.8 G/dL AO ADM SS Albumin/Globulin [Mass ratio] 1.3 {ratio} Normal 1.1 - 2.5 ratio AO ADM SS ALP [Catalytic activity/Vol] 103 U/L Normal 40 - 135 U/L AO ADM SS ALT With P-5'-P [Catalytic activity/Vol] 8 U/L Low 14 - 59 U/L AO ADM SS AST With P-5'-P [Catalytic activity/Vol] 28 U/L Normal 10 - 40 U/L AO ADM SS Basophil, Absolute 0.1 103/mcL Normal 0.0 - 0.2 10^3/mcL AO Workflow SS Basophils/100 WBC (Bld) 0.9 % Normal 0.0 - 2.5 % AO Workflow SS Bilirubin [Mass/Vol] 0.7 mg/dL Normal 0.2 - 1 .0 mg/dL AO ADM SS Comment on above: Interpretive Data: U se of this assay is not recommended for patients undergoing treatment with eltrombopag due to the potential for falsely elevated results. Calcium [Mass/Vol] 9.7 mg/dL Normal 8.4 - 10. 2 mg/dL AO ADM SS Chloride [Moles/Vol] 97 mmol/L Low 98 - 10 7 mmol/L AO ADM SS CO2 [Moles/Vol] 26 mmol/L Normal 23 - 31 mmol/L AO ADM SS Creatinine [Mass/Vol] 0.76 mg/dL Normal 0.55 - 1.02 mg/dL AO ADM SS CRP [Mass/Vol] 0.1 mg/dL Normal 0.0 - 0.3 mg/dL AO ADM SS Electrolyte Balance 12.0 mEq/L Normal 4.0 - 15 .0 mEq/L AO ADM SS Eosinophil, Absolute 0.2 103/mcL Normal 0.0 - 0 .4 10^3/mcL AO Workflow SS Eosinophils/100 WBC (Bld) 2.9 % Normal 0.0 - 7.0 % AO Workflow SS Erythrocyte distribution width (RBC) [Ratio] 14.7 % High 11.5 - 14.5 % AO Workflow SS GFR/1.73 sq M.predicted among blacks MDRD (S/P/Bld) [Vol rate/Area] 88 ml/min/1.73sqm Invalid Interpretation Code AO Chemistry S Comment on above: Interpretive Data: GFR Population mean for , Non- Americans Ages 20-29 = 116 mL/min/1.73 sq.m. Ages 30-39 = 107 mL/min/1.73 sq.m. Ages 40-49 = 99 mL/min/1.73 sq.m. Ages 50-59 = 93 mL/min/1.73 sq.m. Ages 60-69 = 85 mL/min/1.73 sq.m. Ages 70+ = 75 mL/min/1.73 sq.m. Chronic Kidney Disease: Less than 60 mL/min/1.73 square meters End Stage Renal Disease: Less than 15 mL/min/1.73 square meters GFR/1.73 sq M.predicted among non-blacks MDRD (S/P/Bld) [Vol rate/Area] 72 ml/min/1.73sqm Invalid Interpretation Code AO Chemistry S Comment on above: Interpretive Data: GFR Population mean for , Non- Americans Ages 20-29 = 116 mL/min/1.73 sq.m. Ages 30-39 = 107 mL/min/1.73 sq.m. Ages 40-49 = 99 mL/min/1.73 sq.m. Ages 50-59 = 93 mL/min/1.73 sq.m. Ages 60-69 = 85 mL/min/1.73 sq.m. Ages 70+ = 75 mL/min/1.73 sq.m. Chronic Kidney Disease: Less than 60 mL/min/1.73 square meters End Stage Renal Disease: Less than 15 mL/min/1.73 square meters Globulin 3.1 G/dL Invalid Interpretation Code AO ADM SS Glucose [Mass/Vol] 92 mg/dL Normal 83 - 110 mg/dL AO ADM SS Hematocrit (Bld) [Volume fraction] 37.2 % Normal 37.0 - 47.0 % AO Workflow SS Hemoglobin (Bld) [Mass/Vol] 12.6 G/dL Normal 12.0 - 16.0 G/dL AO Workflow SS Lymphocyte, Absolute 1.3 103/mcL Normal 0.8 - 3 .9 10^3/mcL AO Workflow SS Lymphocytes/100 WBC (Bld) 19.6 % Normal 10.0 - 50.0 % AO Workflow SS MCH (RBC) [Entitic mass] 32.3 pg High 27.0 - 31.2 pg AO Workflow SS MCHC 33.9 G/dL Normal 33.0 - 37.0 G/dL AO Workflow SS MCV (RBC) [Entitic vol] 95.4 fL High 80.0 - 94.0 fL AO Workflow SS Monocyte, Absolute 0.6 103/mcL Normal 0.2 - 1.0 10^3/mcL AO Workflow SS Monocytes/100 WBC (Bld) 9.3 % Normal 1.7 - 13.0 % AO Workflow SS Natriuretic peptide.B prohormone N-Terminal [Mass/Vol] 785 pg/mL High 0 - 450 pg/mL AO ADM SS Comment on above: Interpretive Data: N T-proBNP results of less than 300 pg/mL effectively rules out acute congestive heart failure with 99% negative predictive value. Neutrophil, Absolute 4.4 103/mcL Normal 2.9 - 6 .2 10^3/mcL AO Workflow SS Neutrophils/100 WBC (Bld) 67.3 % Normal 37.0 - 80.0 % AO Workflow SS Parathyrin.intact [Mass/Vol] 28.4 pg/mL Normal 18.5 - 88.0 pg/mL AH ADM SS Platelet mean volume (Bld) [Entitic vol] 9.0 fL Normal 7.4 - 10.4 fL AO Workflow SS Platelets (Bld) [#/Vol] 207 103/mcL Normal 130 - 400 10^3/mcL AO Workflow SS Potassium [Moles/Vol] 4.5 mmol/L Normal 3.5 - 5.1 mmol/L AO ADM SS Protein [Mass/Vol] 7.1 G/dL Normal 6.4 - 8.2 G/dL AO ADM SS RBC (Bld) [#/Vol] 3.90 106/mcL Low 4.20 - 5.4 0 10^6/mcL AO Workflow SS Sodium [Moles/Vol] 135 mmol/L Low 136 - 145 mmol/L AO ADM SS Urea nitrogen [Mass/Vol] 11 mg/dL Normal 7 - 18 mg/dL AO ADM SS Urea nitrogen/Creatinine [Mass ratio] 14 ratio Normal 7 - 27 ratio AO ADM SS WBC (Bld) [#/Vol] 6.5 103/mcL Normal 4.6 - 10.8 10^3/mcL AO Workflow SS PBNPon 10-04-2023 Natriuretic peptide B (Bld) [Mass/Vol] 785 pg/mL High 0-450 [facility] ([place]) Comment on above: Result Comment: NT-p roBNP results of less than 300 pg/mL effectively rules out acute congestive heart failure with 99% negative predictive value. Performed By: #### A YOUNG, GFR, BMP, CBC, ADIFF #### [address] [address] PTHon 10-04-2023 PTH, Intact 28.4 pg/mL Normal 18.5-88.0 [facility] ([place]) Comment on above: Performed By: #### A YOUNG, GFR, BMP, CBC, ADIFF #### [place] [id number] [place], [place] [address] VIDHon 10-04-2023 Vit. D 25-Hydroxy 99.9 ng/mL Normal [facility] ([place]) Comment on above: Result Comment: Inte rpretive Values Based on Total 25(OH) Vitamin D: Deficient <20 ng/mL Insufficient 20 - <30 ng/mL Sufficient 30-100 ng/mL Performed By: #### A YOUNG, GFR, BMP, CBC, ADIFF #### [address] [address] FRCORTon 04-19-2023 Free Cortisol, Serum 0.87 UG/DL Normal [facility] ([place]) Comment on above: Result Comment: 18 y ears of age and older: 8-10 a.m. collection: 0.21-1.04 ug/dL 4-6 p.m. collection: 0.10-0.63 ug/dL INTERPRETIVE INFORMATION: Cortisol, Free by Equilibrium Dialysis/LC-MS/MS This test was developed and its performance characteristics determined by [facility]. It has not been cleared or approved by the [place] Food and Drug Administration. This test was performed in a CLIA certified laboratory and is intended for clinical purposes. Performed By: [facility] [address] [place] [id number] Fun House Operator: Ricki Son MD, PhD CLIA Number: [id number] Performed By: #### M RSAPCR #### [address] [address] METPon 04-17-2023 Metanephrine, Fract Plasma 60 pg/mL Normal 12-67 [facility] ([place]) Comment on above: Result Comment: Refe rence Ranges: Hypertensive adult > or = 18 yrs old: 12-72 pg/mL Normotensive adult > or = 18 yrs old: 12-67 pg/mL Normotensive children < 18 yrs old: 10-95 pg/mL Performed By: [facility] [address] [place] [address] Flight Communications Officer: Milton Oro III, M.D. CLIA#: [id number] Performed By: #### M RSAPCR #### [address] [address] Normetanephrine, Fract Plasma 197 pg/mL High 18-101 [facility] ([place]) Comment on above: Result Comment: Refe rence Ranges: Hypertensive adult > or = 18 yrs old: 24-145 pg/mL Normotensive adult > or = 18 yrs old: 18-101 pg/mL Normotensive children < 18 yrs old: 22-83 pg/mL Methyldopa may cause false elevation of normetanephrine levels in this assay. If patient is on methyldopa, interpret results with caution. Plasma Free Metanephrine test performed by Liquid Chromatography Tandem Mass Spectrometry (LC/MS/MS). Results obtained with different methods or kits cannot be used interchangeably. This test was developed and its performance characteristics determined by [facility] [place] ([facility]). It has not been cleared or approved by the FDA. [facility] is regulated under CLIA as qualified to perform high-complexity testing. This test is used for clinical purposes. It should not be regarded as investigational or for research. Performed By: [facility] [employer] [address] [place] [address] Flight Communications Officer: Milton Oro III, M.D. CLIA#: [id number] Performed By: #### M RSAPCR #### [address] [address] ALDOSon 04-13-2023 Aldosterone 5.4 ng/dL Normal 0.0-<35.4 [facility] ([place]) Comment on above: Result Comment: The reference interval for serum/plasma aldosterone is based on a normal sodium intake and upright position. High sodium intake may suppress aldosterone and low sodium intake may increase aldosterone. The supine reference interval is <23.7 ng/dL. A ratio of aldosterone in ng/dL to direct renin in pg/mL greater than or equal to 3.8 is a positive screening test result for primary aldosteronism, when aldosterone is greater than or equal to 15 ng/dL. Performed By: [facility] [address] [place] [address] Flight Communications Officer: Milton Oro III, M.D. CLIA#: [id number] Performed By: #### A YOUNG, GFR, BMP, CBC, ADIFF #### [address] [address] .Auto Diffon 04-12-2023 Basophil, Absolute 0.1 10 3/mcL Normal 0.0-0.2 [facility] ([place]) Comment on above: Performed By: #### A YOUNG, GFR, BMP, CBC, ADIFF #### [address] [address] Basophils/100 WBC (Bld) 0.8 % Normal 0.0-2.5 [facility] ([place]) Comment on above: Performed By: #### A YOUNG, GFR, BMP, CBC, ADIFF #### [address] [address] Eosinophil, Absolute 0.2 10 3/mcL Normal 0.0-0.4 [facility] ([place]) Comment on above: Performed By: #### A YOUNG, GFR, BMP, CBC, ADIFF #### [address] [address] Eosinophils/100 WBC (Bld) 3.2 % Normal 0.0-7.0 [facility] ([place]) Comment on above: Performed By: #### A YOUNG, GFR, BMP, CBC, ADIFF #### [address] [address] Lymphocyte, Absolute 1.5 10 3/mcL Normal 0.8-3.9 [facility] ([place]) Comment on above: Performed By: #### A YOUNG, GFR, BMP, CBC, ADIFF #### [address] [address] Lymphocytes/100 WBC (Bld) 21.7 % Normal 10.0-50.0 [facility] ([place]) Comment on above: Performed By: #### A YOUNG, GFR, BMP, CBC, ADIFF #### [address] [address] Monocyte, Absolute 0.5 10 3/mcL Normal 0.2-1.0 [facility] ([place]) Comment on above: Performed By: #### A YOUNG, GFR, BMP, CBC, ADIFF #### [address] [address] Monocytes/100 WBC (Bld) 7.9 % Normal 1.7-13.0 [facility] ([place]) Comment on above: Performed By: #### A YOUNG, GFR, BMP, CBC, ADIFF #### [address] [address] Neutrophils/100 WBC (Bld) 66.4 % Normal 37.0-80.0 [facility] ([place]) Comment on above: Performed By: #### A YOUNG, GFR, BMP, CBC, ADIFF #### [address] [address] .GFRon 04-12-2023 GFR 82 ml/min/1.73sqm Normal [facility] ([place]) Comment on above: Result Comment: GFR Population mean for , Non- Americans Ages 20-29 = 116 mL/min/1.73 sq.m. Ages 30-39 = 107 mL/min/1.73 sq.m. Ages 40-49 = 99 mL/min/1.73 sq.m. Ages 50-59 = 93 mL/min/1.73 sq.m. Ages 60-69 = 85 mL/min/1.73 sq.m. Ages 70+ = 75 mL/min/1.73 sq.m. Chronic Kidney Disease: Less than 60 mL/min/1.73 square meters End Stage Renal Disease: Less than 15 mL/min/1.73 square meters Performed By: #### A YOUNG, GFR, BMP, CBC, ADIFF #### [address] [address] GFR Non- 67 ml/min/1.73sqm Normal [facility] ([place]) Comment on above: Result Comment: GFR Population mean for , Non- Americans Ages 20-29 = 116 mL/min/1.73 sq.m. Ages 30-39 = 107 mL/min/1.73 sq.m. Ages 40-49 = 99 mL/min/1.73 sq.m. Ages 50-59 = 93 mL/min/1.73 sq.m. Ages 60-69 = 85 mL/min/1.73 sq.m. Ages 70+ = 75 mL/min/1.73 sq.m. Chronic Kidney Disease: Less than 60 mL/min/1.73 square meters End Stage Renal Disease: Less than 15 mL/min/1.73 square meters Performed By: #### A YOUNG, GFR, BMP, CBC, ADIFF #### [address] [address] .NEUABSon 04-12-2023 Neutrophil, Absolute 4.5 10 3/mcL Normal 2.9-6.2 [facility] ([place]) Comment on above: Performed By: #### A YOUNG, GFR, BMP, CBC, ADIFF #### [address] [address] CBCon 04-12-2023 Erythrocyte distribution width (RBC) [Ratio] 14.3 % Normal 11.5-14.5 [facility] ([place]) Comment on above: Performed By: #### A YOUNG, GFR, BMP, CBC, ADIFF #### [address] [address] Hematocrit (Bld) [Volume fraction] 37.5 % Normal 37.0-47.0 [facility] ([place]) Comment on above: Performed By: #### A YOUNG, GFR, BMP, CBC, ADIFF #### [address] [address] Hgb 12.9 G/dL Normal 12.0-16.0 [facility] ([place]) Comment on above: Performed By: #### A YOUNG, GFR, BMP, CBC, ADIFF #### [address] [address] MCH (RBC) [Entitic mass] 32.4 pg High 27.0-31.2 [facility] ([place]) Comment on above: Performed By: #### A YOUNG, GFR, BMP, CBC, ADIFF #### [address] [address] MCHC 34.5 G/dL Normal 33.0-37.0 [facility] ([place]) Comment on above: Performed By: #### A YOUNG, GFR, BMP, CBC, ADIFF #### [address] [address] MCV (RBC) [Entitic vol] 93.8 fL Normal 80.0-94.0 [facility] ([place]) Comment on above: Performed By: #### A YOUNG, GFR, BMP, CBC, ADIFF #### [address] [address] Platelet 199 10 3/mcL Normal 130-400 [facility] ([place]) Comment on above: Performed By: #### A YOUNG, GFR, BMP, CBC, ADIFF #### [address] [address] Platelet mean volume (Bld) [Entitic vol] 8.9 fL Normal 7.4-10.4 [facility] ([place]) Comment on above: Performed By: #### A YOUNG, GFR, BMP, CBC, ADIFF #### [address] [address] RBC 3.99 10 6/mcL Low 4.20-5.40 [facility] ([place]) Comment on above: Performed By: #### A YOUNG, GFR, BMP, CBC, ADIFF #### [address] [address] WBC 6.8 10 3/mcL Normal 4.6-10.8 [facility] ([place]) Comment on above: Performed By: #### A YOUNG, GFR, BMP, CBC, ADIFF #### [address] [address] CMPon 04-12-2023 Albumin Level 4.1 G/dL Normal 3.4-4.8 [facility] ([place]) Comment on above: Performed By: #### A YOUNG, GFR, BMP, CBC, ADIFF #### [address] [address] Albumin/Globulin [Mass ratio] 1.4 {ratio} Normal 1.1-2.5 [facility] ([place]) Comment on above: Performed By: #### A YOUNG, GFR, BMP, CBC, ADIFF #### [address] [address] ALP [Catalytic activity/Vol] 118 U/L Normal 40-135 [facility] ([place]) Comment on above: Performed By: #### A YOUNG, GFR, BMP, CBC, ADIFF #### [address] [address] ALT [Catalytic activity/Vol] 11 U/L Low 14-59 [facility] ([place]) Comment on above: Performed By: #### A YOUNG, GFR, BMP, CBC, ADIFF #### [address] [address] AST [Catalytic activity/Vol] 25 U/L Normal 10-40 [facility] ([place]) Comment on above: Performed By: #### A YOUNG, GFR, BMP, CBC, ADIFF #### [address] [address] Bili Total 0.6 mg/dL Normal 0.2-1.0 [facility] ([place]) Comment on above: Result Comment: Use of this assay is not recommended for patients undergoing treatment with eltrombopag due to the potential for falsely elevated results. Performed By: #### A YOUNG, GFR, BMP, CBC, ADIFF #### [address] [address] BUN/Creatinine Ratio 23 ratio Normal 7-27 [facility] ([place]) Comment on above: Performed By: #### A YOUNG, GFR, BMP, CBC, ADIFF #### [address] [address] Calcium [Mass/Vol] 9.2 mg/dL Normal 8.4-10.2 [facility] ([place]) Comment on above: Performed By: #### A YOUNG, GFR, BMP, CBC, ADIFF #### [address] [address] Chloride [Moles/Vol] 99 mmol/L Normal 98-107 [facility] ([place]) Comment on above: Performed By: #### A YOUNG, GFR, BMP, CBC, ADIFF #### [address] [address] CO2 [Moles/Vol] 28 mmol/L Normal 23-31 [facility] ([place]) Comment on above: Performed By: #### A YOUNG, GFR, BMP, CBC, ADIFF #### [address] [address] Creatinine [Mass/Vol] 0.81 mg/dL Normal 0.55-1.02 [facility] ([place]) Comment on above: Performed By: #### A YOUNG, GFR, BMP, CBC, ADIFF #### [address] [address] Electrolyte Balance 8.0 mEq/L Normal 4.0-15.0 [facility] ([place]) Comment on above: Performed By: #### A YOUNG, GFR, BMP, CBC, ADIFF #### [address] [address] Globulin 2.9 G/dL Normal [facility] ([place]) Comment on above: Performed By: #### A YOUNG, GFR, BMP, CBC, ADIFF #### [address] [address] Glucose [Mass/Vol] 93 mg/dL Normal 83-110 [facility] ([place]) Comment on above: Performed By: #### A YOUNG, GFR, BMP, CBC, ADIFF #### [address] [address] Potassium [Moles/Vol] 4.5 mmol/L Normal 3.5-5.1 [facility] ([place]) Comment on above: Performed By: #### A YOUNG, GFR, BMP, CBC, ADIFF #### [address] [address] Sodium [Moles/Vol] 135 mmol/L Low 136-145 [facility] ([place]) Comment on above: Performed By: #### A YOUNG, GFR, BMP, CBC, ADIFF #### [address] [address] Total Protein 7.0 G/dL Normal 6.4-8.2 [facility] ([place]) Comment on above: Performed By: #### A YOUNG, GFR, BMP, CBC, ADIFF #### [address] [address] Urea nitrogen [Mass/Vol] 19 mg/dL High 7-18 [facility] ([place]) Comment on above: Performed By: #### A YOUNG, GFR, BMP, CBC, ADIFF #### [address] [address] FEon 04-12-2023 Iron [Mass/Vol] 69 ug/dL Normal 50-170 [facility] ([place]) Comment on above: Performed By: #### A YOUNG, GFR, BMP, CBC, ADIFF #### [address] [address] IBCon 04-12-2023 TIBC 294 mcg/dL Normal 250-450 [facility] ([place]) Comment on above: Performed By: #### A YOUNG, GFR, BMP, CBC, ADIFF #### [address] [address] LABORATORYOrdered By: SYSTEM SYSTEM on 04-12-2023 25-hydroxyvitamin D3 [Mass/Vol] 110.2 ng/mL Invalid Interpretation Code AO ADM SS Comment on above: Interpretive Data: I nterpretive Values Based on Total 25(OH) Vitamin D: Deficient <20 ng/mL Insufficient 20 - <30 ng/mL Sufficient 30-100 ng/mL Albumin BCP dye [Mass/Vol] 4.1 G/dL Invalid Interpretation Code 3.4 - 4.8 G/dL AO ADM SS Albumin/Globulin [Mass ratio] 1.4 {ratio} Invalid Interpretation Code 1.1 - 2.5 ratio AO ADM SS ALP [Catalytic activity/Vol] 118 U/L Invalid Interpretation Code 40 - 135 U/L AO ADM SS ALT With P-5'-P [Catalytic activity/Vol] 11 U/L Invalid Interpretation Code 14 - 59 U/L AO ADM SS AST With P-5'-P [Catalytic activity/Vol] 25 U/L Invalid Interpretation Code 10 - 40 U/L AO ADM SS Basophil, Absolute 0.1 103/mcL Invalid Interpretation Code 0.0 - 0.2 10^3/mcL AO Workflow SS Basophils/100 WBC (Bld) 0.8 % Invalid Interpretation Code 0.0 - 2.5 % AO Workflow SS Bilirubin [Mass/Vol] 0.6 mg/dL Invalid Interpretation Code 0.2 - 1.0 mg/dL AO ADM SS Comment on above: Interpretive Data: U se of this assay is not recommended for patients undergoing treatment with eltrombopag due to the potential for falsely elevated results. Calcium [Mass/Vol] 9.2 mg/dL Invalid Interpretation Code 8.4 - 10.2 mg/dL AO ADM SS Chloride [Moles/Vol] 99 mmol/L Invalid Interpretation Code 98 - 107 mmol/L AO ADM SS CO2 [Moles/Vol] 28 mmol/L Invalid Interpretation Code 23 - 31 mmol/L AO ADM SS Creatinine [Mass/Vol] 0.81 mg/dL Invalid Interpretation Code 0.55 - 1.02 mg/dL AO ADM SS Electrolyte Balance 8.0 mEq/L Invalid Interpretation Code 4.0 - 15.0 mEq/L AO ADM SS Eosinophil, Absolute 0.2 103/mcL Invalid Interpretation Code 0.0 - 0.4 10^3/mcL AO Workflow SS Eosinophils/100 WBC (Bld) 3.2 % Invalid Interpretation Code 0.0 - 7.0 % AO Workflow SS Erythrocyte distribution width (RBC) [Ratio] 14.3 % Invalid Interpretation Code 11.5 - 14.5 % AO Workflow SS GFR/1.73 sq M.predicted among blacks MDRD (S/P/Bld) [Vol rate/Area] 82 ml/min/1.73sqm Invalid Interpretation Code AO Chemistry S Comment on above: Interpretive Data: GFR Population mean for , Non- Americans Ages 20-29 = 116 mL/min/1.73 sq.m. Ages 30-39 = 107 mL/min/1.73 sq.m. Ages 40-49 = 99 mL/min/1.73 sq.m. Ages 50-59 = 93 mL/min/1.73 sq.m. Ages 60-69 = 85 mL/min/1.73 sq.m. Ages 70+ = 75 mL/min/1.73 sq.m. Chronic Kidney Disease: Less than 60 mL/min/1.73 square meters End Stage Renal Disease: Less than 15 mL/min/1.73 square meters GFR/1.73 sq M.predicted among non-blacks MDRD (S/P/Bld) [Vol rate/Area] 67 ml/min/1.73sqm Invalid Interpretation Code AO Chemistry S Comment on above: Interpretive Data: GFR Population mean for , Non- Americans Ages 20-29 = 116 mL/min/1.73 sq.m. Ages 30-39 = 107 mL/min/1.73 sq.m. Ages 40-49 = 99 mL/min/1.73 sq.m. Ages 50-59 = 93 mL/min/1.73 sq.m. Ages 60-69 = 85 mL/min/1.73 sq.m. Ages 70+ = 75 mL/min/1.73 sq.m. Chronic Kidney Disease: Less than 60 mL/min/1.73 square meters End Stage Renal Disease: Less than 15 mL/min/1.73 square meters Globulin 2.9 G/dL Invalid Interpretation Code AO ADM SS Glucose [Mass/Vol] 93 mg/dL Invalid Interpretation Code 83 - 110 mg/dL AO ADM SS Hematocrit (Bld) [Volume fraction] 37.5 % Invalid Interpretation Code 37.0 - 47.0 % AO Workflow SS Hemoglobin (Bld) [Mass/Vol] 12.9 G/dL Invalid Interpretation Code 12.0 - 16.0 G/dL AO Workflow SS Iron [Mass/Vol] 69 ug/dL Invalid Interpretation Code 50 - 170 mcg/dL AO ADM SS Iron binding capacity [Mass/Vol] 294 mcg/dL Invalid Interpretation Code 250 - 450 mcg/dL AO ADM SS Lymphocyte, Absolute 1.5 103/mcL Invalid Interpretation Code 0.8 - 3.9 10^3/mcL AO Workflow SS Lymphocytes/100 WBC (Bld) 21.7 % Invalid Interpretation Code 10.0 - 50.0 % AO Workflow SS MCH (RBC) [Entitic mass] 32.4 pg Invalid Interpretation Code 27.0 - 31.2 pg AO Workflow SS MCHC 34.5 G/dL Invalid Interpretation Code 33.0 - 37.0 G/dL AO Workflow SS MCV (RBC) [Entitic vol] 93.8 fL Invalid Interpretation Code 80.0 - 94.0 fL AO Workflow SS Monocyte, Absolute 0.5 103/mcL Invalid Interpretation Code 0.2 - 1.0 10^3/mcL AO Workflow SS Monocytes/100 WBC (Bld) 7.9 % Invalid Interpretation Code 1.7 - 13.0 % AO Workflow SS Neutrophil, Absolute 4.5 103/mcL Invalid Interpretation Code 2.9 - 6.2 10^3/mcL AO Workflow SS Neutrophils/100 WBC (Bld) 66.4 % Invalid Interpretation Code 37.0 - 80.0 % AO Workflow SS Platelet mean volume (Bld) [Entitic vol] 8.9 fL Invalid Interpretation Code 7.4 - 10.4 fL AO Workflow SS Platelets (Bld) [#/Vol] 199 103/mcL Invalid Interpretation Code 130 - 400 10^3/mcL AO Workflow SS Potassium [Moles/Vol] 4.5 mmol/L Invalid Interpretation Code 3.5 - 5.1 mmol/L AO ADM SS Protein [Mass/Vol] 7.0 G/dL Invalid Interpretation Code 6.4 - 8.2 G/dL AO ADM SS RBC (Bld) [#/Vol] 3.99 106/mcL Invalid Interpretation Code 4.20 - 5.40 10^6/mcL AO Workflow SS Sodium [Moles/Vol] 135 mmol/L Invalid Interpretation Code 136 - 145 mmol/L AO ADM SS Urea nitrogen [Mass/Vol] 19 mg/dL Invalid Interpretation Code 7 - 18 mg/dL AO ADM SS Urea nitrogen/Creatinine [Mass ratio] 23 ratio Invalid Interpretation Code 7 - 27 ratio AO ADM SS WBC (Bld) [#/Vol] 6.8 103/mcL Invalid Interpretation Code 4.6 - 10.8 10^3/mcL AO Workflow SS LABORATORYOrdered By: CLEV_C BRAD CONTRIBUTOR_SYSTEM on 04-12-2023 Aldosterone 5.4 ng/dL Invalid Interpretation Code 0.0-<35.4 AO Sendouts Comment on above: Result Comment: The reference interval for serum/plasma aldosterone is based on a normal sodium intake and upright position. High sodium intake may suppress aldosterone and low sodium intake may increase aldosterone. The supine reference interval is <23.7 ng/dL. A ratio of aldosterone in ng/dL to direct renin in pg/mL greater than or equal to 3.8 is a positive screening test result for primary aldosteronism, when aldosterone is greater than or equal to 15 ng/dL. Performed By: [facility] [address] [place] [address] Flight Communications Officer: Milton Oro III, M.D. IA#: [id number] [facility] 04-12-2023 Vit. D 25-Hydroxy 110.2 ng/mL Normal [facility] ([place]) Comment on above: Result Comment: Inte rpretive Values Based on Total 25(OH) Vitamin D: Deficient <20 ng/mL Insufficient 20 - <30 ng/mL Sufficient 30-100 ng/mL Performed By: #### A YOUNG, GFR, BMP, CBC, ADIFF #### [address] [address] Dexa Bone Density Studyon Dexa Bone Density Study [facility] Imaging Services [address] [place] [address] Dexa Bone Density Study MR#: [id number] Acct: [id number] Name: KELY PEREZ Hesham Rep #: [id number] : 1940 F 82 From: Fabrizio olvera MD PCP: EDDIE DoddC Status: [facility] Study: Dexa Bone Density Study Date of Exam: 04/10/23 Exam# [id number] Ordering Dr: Kevin Chery NP WORKDAY CONSULTANT-C STUDY: DUAL ENERGY X-RAY ABSORPTIOMETRY / DXA REASON FOR EXAM: Female, 82 years old. [id number] TECHNIQUE: Bone Mineral Density (BMD) measurements of lumbar spine and bilateral hips were obtained. COMPARISON: Comparison is made with prior study dated January 27, 2021. FINDINGS: Lumbar Spine (L1-L4): g/cm2 (0.798) / T-score (-2.3) / Z-score (0.6) Findings are suggestive of osteopenia with a high fracture risk. Left Femur Total: g/cm2 (0.650) / T-score (-2.4) / Z-score (-0.1) Left Femoral Neck: g/cm2 (0.596) / T-score (-2.3) / Z-score (0.2) Right Femur Total: g/cm2 (0.590) / T-score (-2.9) / Z-score (-0.6) Right Femoral Neck: g/cm2 (0.493) / T-score (-3.2) / Z-score (-0.7) The T-Scores on the most recent prior examination were: Lumbar Spine (L1-L4): There has been worsening of bone density since the previous examination. Left Femur Total: which represents a worsening of 2.3%. Right Femur Total: which represents an improvement of 2.4%. BD/Dexa Bone Density Study IMPRESSION: The patient is considered osteoporotic as outlined below according to World Tony Organization (WHO) criteria with a high fracture risk. There has been worsening of bone density since the previous examination. Reference Information: The T-score is the number of standard deviations above or below the standard which is normal for young adults at their peak bone mineral density. The World Health Organization (WHO) interprets the T-scores as follows: Above -1 Normal bone density Between -1 and -2.5 Osteopenia Equal to / or below -2.5 Osteoporosis As a practical clinical guideline, osteopenia may be graded as follows: Mild -1 through -1.5 Moderate -1.6 through -2.0 Severe -2.1 through -2.4 The Z-score is the number of standard deviations above or below age-matched controls. A Z-score of less than -1.5 would be considered abnormal. References: 1. NIH Osteoporosis and Related Bone Diseases www osteo.org 2. International Society for Clinical Densitometry www iscd.org 3. National Osteoporosis Foundation www nof.org Electronically Signed: Fabrizio Adams MD at 9:26 EDT , CC: WORKDAY CONSULTANT-C Kevin Chery Obiee Lead Developer: Signed Normal [facility] SCRN MAMM (CAD)W/JOEY BILATo n 04-10-2023 SCRN MAMM (CAD)W/JOEY BILAT [facility] Imaging Services [address] [place] [address] SCRN MAMM (CAD)W/JOEY BILAT MR#: [id number] Acct: [id number] Name: KELY PEREZ Rep #: [id number] : 1940 F 82 From: Fabrizio olvera MD PCP: BOOGIE Dodd Status: REG CLI Study: SCRN MAMM (CAD)W/JOEY BILAT Date of Exam: 03/27 01/16 Exam# [id number] Ordering Dr: Kevin Chery NP WORKDAY CONSULTANT-Soy MAMMOGRAPHY - BILATERAL SCREENING REASON FOR EXAM: Female, 82 years old. Routine annual screening examination. PERTINENT HISTORY: Personal history of breast cancer. Prior left lumpectomy. Mother with breast cancer. TECHNIQUE: Digital bilateral breast joey (3D mammographic acquisition) in the CC and MLO projections. 2-D mediolateral oblique (MLO) and craniocaudad (CC) views of both breasts were obtained. CAD: Full Field Digital Mammography with Computer Added Detection was performed. COMPARISON: Comparison is made with prior study dated February 06, 2022 and January 27, 2021. FINDINGS: Breast Composition: The breasts are heterogeneously dense, which may obscure small masses. There are no dominant masses or suspicious calcifications. No other significant abnormalities are identified. There has been no significant change since the prior study. BI/SCRN MAMM (CAD)W/JOEY BILAT IMPRESSION: Stable bilateral screening mammogram. Yearly follow-up mammogram recommended. (A) ASSESSMENT CATEGORY: BIRADS Category 2: Benign. A letter regarding these results will be sent to the patient by the facility within 30 days. Approximately 10% of breast cancers are not detected by mammography. A normal mammogram should not delay biopsy of a clinically suspicious abnormality. [id number] Electronically Signed: Fabrizio Adams MD at 10:37 EDT , CC: BOOGIE Chery Obiee Lead Developer: Signed Normal [facility] 12 Lead EKGon 04-03-2023 12 Lead EKG [facility] Cardiovascular Services [address] [place] [address] 12 Lead EKG 04/03/23 1228 MR#: [id number] Acct: [id number] Name: KELY PEREZ Rep #: [id number] : 1940 82 From: Isidro Rueda MD Attending Dr: BOOGIE Dodd Stat us: REG CLI Ordering Dr: Kevin Chery NP Date: 04/18 Location: N Sex: F C Admitted: Test Reason : HTN Blood Pressure : / mmHG Vent. Rate : 064 BPM Atrial Rate : 064 BPM P-R Int : 168 ms QRS Dur : 138 ms QT Int : 422 ms P-R-T Axes : 056 -47 035 degrees QTc Int : 435 ms Normal sinus rhythm with sinus arrhythmia Right bundle branch block Left anterior fascicular block Bifascicular block Abnormal ECG Confirmed by ISIDRO RUEDA MD ([id number]), order editor CARMELINA HOLBROOK ([id number]) on 04/04/2023 8:54:11 AM Referred By: Kevin Chery Confirmed By:ISIDRO RUEDA MD 04/04/23 0854 Date Isidro Rueda MD CC: WORKDAY CONSULTANT-C Kevin Chery Signed Normal [facility] Echo Completeon 04-03-2023 Echo Complete [facility] Cardiovascular Services [address] [place] [address] Echo Complete 04/03/23 1256 MR#: [id number] Acct: [id number] Name: KELY PEREZ Rep #: [id number] : 1940 82 From: Isidro Rueda MD Attending Dr: BOOGIE Dodd Stat us: REG CLI Ordering Dr: Kevin Chery NP Date: 04/18 Location: [facility] Sex: F C Admitted: Reason For Study: MURMUR Procedure This was a 2D Doppler, Color Flow transthoracic echocardiogram. The study was technically difficult. Exam performed in department. Left Ventricle Normal LV size. Left ventricular systolic function is normal. The estimated ejection fraction is 65 %. No regional wall motion abnormalities noted. Right Ventricle Normal RV size. Normal systolic function. Atria Normal left atrium. Normal right atrium. Mitral Valve Bileaflet diffuse mitral valve thickening. Bileaflet mitral valve prolapse. Moderate (2+) anteriorly directed mitral valve insufficiency. Tricuspid Valve Normal tricuspid valve. Mild tricuspid valve insufficiency. Pulmonary artery systolic pressure is 36 mmHg. Aortic Valve Normal aortic valve. Mild (1+) aortic valve insufficiency. Pulmonic Valve Normal pulmonic valve. Great Vessels Normal aortic root. The pulmonary artery is normal size. Normal inferior vena cava. Pericardium/Pleural No pericardial effusion. MMode/2D Measurements Calculations LVIDd: 5.2 cm IVSd: 1.1 cm Ao root diam: 3.9 cm LVIDs: 3.1 cm LVPWd: 1.1 cm RVDd: 3.2 cm FS: 40.2 % LAV(MOD-sp2): 41.7 ml LVAd ap4: 25.2 cm2 LVAd ap2: 20.2 cm2 LVLd ap4: 7.3 cm LVLd ap2: 6.8 cm EDV(MOD-sp4): 70.8 ml EDV(MOD-sp2): 49.2 ml EDV(sp4-el): 73.5 ml EDV(sp2-el): 50.7 ml LVAs ap4: 11.4 cm2 LVAs ap2: 9.5 cm2 LVLs ap4: 5.5 cm LVLs ap2: 5.6 cm ESV(MOD-sp4): 21.6 ml ESV(MOD-sp2): 15.1 ml ESV(sp4-el): 20.2 ml ESV(sp2-el): 13.8 ml EF(MOD-sp4): 69.6 % EF(MOD-sp2): 69.4 % EF(sp4-el): 72.5 % SV(MOD-sp4): 49.3 ml SV(MOD-sp2): 34.1 ml SV(sp4-el): 53.3 ml LA dimension(2D): 3.6 cm Time Measurements MV dec time: 0.20 sec Doppler Measurements Calculations MV E max abdirizak: 111.9 cm/sec Lat Peak E' Abdirizak: 8.1 cm/sec Med Peak E' Abdirizak: 4.9 cm/sec MV A max abdirizak: 63.1 cm/sec E/E' lat: 13.8 E/E' med: 22.9 MV E/A: 1.8 MV V2 max: 130.7 cm/sec Ao V2 max: 142.6 cm/sec LV V1 max: 106.2 cm/sec MV max P.8 mmHg Ao max P.2 mmHg LV V1 max P.7 mmHg MV V2 mean: 53.6 cm/sec Ao V2 mean: 98.1 cm/sec LV V1 mean P.4 mmHg MV mean P.7 mmHg Ao mean P.4 mmHg LV V1 mean: 70.3 cm/sec MV V2 VTI: 30.2 cm Ao V2 VTI: 28.3 cm LV V1 VTI: 19.1 cm AV (velocity ratio): 0.68 MR max abdirizak: 632.2 cm/sec PA V2 max: 72.3 cm/sec TR max abdirizak: 280.8 cm/sec MR max P.9 mmHg PA V2 mean: 48.3 cm/sec TR max P.5 mmHg MR mean abdirizak: 539.3 cm/sec MR mean P.4 mmHg MR VTI: 210.4 cm ECHO/Echo Complete Interpretation Summary Normal LV size. Left ventricular systolic function is normal. The estimated ejection fraction is 65 %. Bileaflet diffuse mitral valve thickening. Bileaflet mitral valve prolapse. Moderate (2+) anteriorly directed mitral valve insufficiency. Ordering Physician: Kevin Chery Referring Physician: Kevin Chery Performed By: Gisela Broussard, CHARU, RVT 04/04/23 1124 Date Isidro Rueda MD CC: WORKDAY CONSULTANT-C Kevin Chery Date Dictated: 04/03/23 1256 Date Transcribed: 04/04/23 1124 Obiee Lead Developer: Signed [facility] LABORATORYOrdered By: SYSTEM SYSTEM on 12-28-2022 25-hydroxyvitamin D3 [Mass/Vol] 133.1 ng/mL Invalid Interpretation Code AO ADM SS Albumin BCP dye [Mass/Vol] 4.1 G/dL Invalid Interpretation Code 3.4 - 4.8 G/dL AO ADM SS Albumin/Globulin [Mass ratio] 1.5 {ratio} Invalid Interpretation Code 1.1 - 2.5 ratio AO ADM SS ALP [Catalytic activity/Vol] 117 U/L Invalid Interpretation Code 40 - 135 U/L AO ADM SS ALT With P-5'-P [Catalytic activity/Vol] 11 U/L Invalid Interpretation Code 14 - 59 U/L AO ADM SS AST With P-5'-P [Catalytic activity/Vol] 22 U/L Invalid Interpretation Code 10 - 40 U/L AO ADM SS Bilirubin [Mass/Vol] 0.7 mg/dL Invalid Interpretation Code 0.2 - 1.0 mg/dL AO ADM SS Calcium [Mass/Vol] 9.4 mg/dL Invalid Interpretation Code 8.4 - 10.2 mg/dL AO ADM SS Chloride [Moles/Vol] 103 mmol/L Invalid Interpretation Code 98 - 107 mmol/L AO ADM SS CO2 [Moles/Vol] 28 mmol/L Invalid Interpretation Code 23 - 31 mmol/L AO ADM SS Creatinine [Mass/Vol] 0.80 mg/dL Invalid Interpretation Code 0.55 - 1.02 mg/dL AO ADM SS Electrolyte Balance 6.0 mEq/L Invalid Interpretation Code 4.0 - 15.0 mEq/L AO ADM SS GFR/1.73 sq M.predicted among blacks MDRD (S/P/Bld) [Vol rate/Area] 83 ml/min/1.73sqm Invalid Interpretation Code AO Chemistry S GFR/1.73 sq M.predicted among non-blacks MDRD (S/P/Bld) [Vol rate/Area] 68 ml/min/1.73sqm Invalid Interpretation Code AO Chemistry S Globulin 2.8 G/dL Invalid Interpretation Code AO ADM SS Glucose [Mass/Vol] 89 mg/dL Invalid Interpretation Code 83 - 110 mg/dL AO ADM SS HbA1c (Bld) [Mass fraction] 5.5 % Invalid Interpretation Code 4.3 - 6.4 % AO ADM SS Parathyrin.intact [Mass/Vol] 41.6 pg/mL Invalid Interpretation Code 18.5 - 88.0 pg/mL AH ADM SS Potassium [Moles/Vol] 4.4 mmol/L Invalid Interpretation Code 3.5 - 5.1 mmol/L AO ADM SS Protein [Mass/Vol] 6.9 G/dL Invalid Interpretation Code 6.4 - 8.2 G/dL AO ADM SS Sodium [Moles/Vol] 137 mmol/L Invalid Interpretation Code 136 - 145 mmol/L AO ADM SS TSH Qn 1.05 m[IU]/L Invalid Interpretation Code 0.36 - 3.74 mcIU/mL AO ADM SS Urea nitrogen [Mass/Vol] 13 mg/dL Invalid Interpretation Code 7 - 18 mg/dL AO ADM SS Urea nitrogen/Creatinine [Mass ratio] 16 ratio Invalid Interpretation Code 7 - 27 ratio AO ADM SS LABORATORYOrdered By: Mallory Christianson on 12-28-2022 Basophil, Absolute 0.0 103/mcL Invalid Interpretation Code 0.0 - 0.2 10^3/mcL AO Workflow SS Basophils/100 WBC (Bld) 0.3 % Invalid Interpretation Code 0.0 - 2.5 % AO Workflow SS Eosinophil, Absolute 0.1 103/mcL Invalid Interpretation Code 0.0 - 0.4 10^3/mcL AO Workflow SS Eosinophils/100 WBC (Bld) 1.5 % Invalid Interpretation Code 0.0 - 7.0 % AO Workflow SS Erythrocyte distribution width (RBC) [Ratio] 13.6 % Invalid Interpretation Code 11.5 - 14.5 % AO Workflow SS Hematocrit (Bld) [Volume fraction] 37.7 % Invalid Interpretation Code 37.0 - 47.0 % AO Workflow SS Hemoglobin (Bld) [Mass/Vol] 12.7 G/dL Invalid Interpretation Code 12.0 - 16.0 G/dL AO Workflow SS Lymphocyte, Absolute 1.3 103/mcL Invalid Interpretation Code 0.8 - 3.9 10^3/mcL AO Workflow SS Lymphocytes/100 WBC (Bld) 20.1 % Invalid Interpretation Code 10.0 - 50.0 % AO Workflow SS MCH (RBC) [Entitic mass] 32.1 pg Invalid Interpretation Code 27.0 - 31.2 pg AO Workflow SS MCHC 33.6 G/dL Invalid Interpretation Code 33.0 - 37.0 G/dL AO Workflow SS MCV (RBC) [Entitic vol] 95.4 fL Invalid Interpretation Code 80.0 - 94.0 fL AO Workflow SS Monocyte, Absolute 0.6 103/mcL Invalid Interpretation Code 0.2 - 1.0 10^3/mcL AO Workflow SS Monocytes/100 WBC (Bld) 8.6 % Invalid Interpretation Code 1.7 - 13.0 % AO Workflow SS Neutrophil, Absolute 4.6 103/mcL Invalid Interpretation Code 2.9 - 6.2 10^3/mcL AO Workflow SS Neutrophils/100 WBC (Bld) 69.5 % Invalid Interpretation Code 37.0 - 80.0 % AO Workflow SS Platelet mean volume (Bld) [Entitic vol] 9.1 fL Invalid Interpretation Code 7.4 - 10.4 fL AO Workflow SS Platelets (Bld) [#/Vol] 195 103/mcL Invalid Interpretation Code 130 - 400 10^3/mcL AO Workflow SS RBC (Bld) [#/Vol] 3.95 106/mcL Invalid Interpretation Code 4.20 - 5.40 10^6/mcL AO Workflow SS WBC (Bld) [#/Vol] 6.7 103/mcL Invalid Interpretation Code 4.6 - 10.8 10^3/mcL AO Workflow SS LABORATORYOrdered By: Jennifer Anthony on 12-28-2022 Cholesterol [Mass/Vol] 158 mg/dL Invalid Interpretation Code 0 - 200 mg/dL AO ADM SS Cholesterol in HDL [Mass/Vol] 63 mg/dL Invalid Interpretation Code 40 - 60 mg/dL AO ADM SS Cholesterol in LDL [Mass/Vol] 84 mg/dL Invalid Interpretation Code 0 - 130 mg/dL AO ADM SS Triglyceride [Mass/Vol] 53 mg/dL Invalid Interpretation Code 0 - 150 mg/dL AO ADM SS LABORATORYOrdered By: ANABELLA SALINAS CONTRIBUTOR_SYSTEM on 12-28-2022 Direct Renin 3.5 pg/mL Invalid Interpretation Code 3.6-81.6pg/m L AO Sendouts SS Comment on above: Result Comment: A ra rodolfo of aldosterone in ng/dL to direct renin in pg/mL greater than or equal to 3.8 is a positive screening test result for primary aldosteronism, when aldosterone is greater than or equal to 15 ng/dL. The reference interval for direct renin is based on an upright position. The supine reference intervals are: Age <41 years: 3.2-33.2 pg/mL Age >=41 years: 2.5-45.1 pg/mL Performed By: [facility] [employer] [place] [address] Flight Communications Officer: Milton Oro III, M.D. CLIA#: [id number] Patient Upright or Supine Upright Invalid Interpretation Code AO Sendouts SS Comment on above: Result Comment: Perf ormed By: [facility] [address] [place] [address] Flight Communications Officer: Maddy Conroy IIIIA#: [id number] Ermelinda 02-17-2022 LUIS Telephone (RIO) KELY PEREZ ([id number]) 1940 F Date Time Provider Department 02/17/22 LAURIE HAMM During your visit today, we recorded the following information about you: Laurie Hamm APRN.MATEO 02/17/2022 2:16 PM Signed Please inform pt. that her mammogram looks good. Follow up as scheduled. Thank you. Laurie Hamm APRN.MATEO Esqueda LPN 02/17/2022 2:19 PM Signed Patient notified. Jaida Esqueda LPN Allergies As of Date: 02/17/2022 (No Known Allergies) Date Reviewed: 10/31/2021 Reviewed by: Laurie Hamm APRN.MATEO - Fully Assessed Reason for Visit: Results [95] Prescriptions as of 02/17/2022 - prednisoLONE acetate (PRED FORTE, ECONOPRED PLUS) 1 % ophthalmic suspension Use 1 Drop in both eyes once daily. - CALCIUM CARBONATE/VITAMIN D3 (CALCIUM 500 + D, D3, ORAL) Take 2 tablets by mouth once daily. Problem List As Of Date 02/17/2022 Noted Resolved Malignant neoplasm of upper-outer quadrant of l*05/25/2016 05/25/2017 Malignant neoplasm of upper-outer quadrant of l*05/25/2017 Encounter Status:Closed by JAIDA ESQUEDA LPN on 02/17/22 [facility] [place] [facility] OVS Visit (SP) Office (RIO) KELY PEREZ ([id number]) 1940 F Date Time Provider Department 10/31/21 2:00 PM LAURIE HAMM During your visit today, we recorded the following information about you: Temperature Pulse Blood pressure Weight 98.1 degrees 65/minute 172/97 65.1 kg Height 1.651 m Laurie Hamm, LANA.TELEGRAPH REPEATER INSTALLER 11/01/2021 8:19 AM Signed Chief Complaint Patient presents with: Established Patient HPI: Kely Perez is a 81 year old female who presents here today for follow up breast cancer. Per Dr. Perry's previous note: H/o found a lump in her left breast. She underwent a bilateral diagnostic mammogram on 05/15/2016. There was a 1.2 x 1.4 cm ill-defined density deep in the upper lateral aspect of the left breast. Small lymph nodes in the axillary region were observed. On ultrasound this abnormality measured 1.5 x 1.6 x 1.4 cm. It was an ill-defined hypoechoic nodule at the 4:00 position in the breast 3 cm from the nipple. ? She was referred to Dr. Coles and underwent a core needle biopsy on 05/18/2016. The specimen revealed invasive ductal carcinoma, nuclear grade 2. Estrogen receptors were quantified at greater than 95%, moderate to strong. KY was 48%, moderate. HER-2 was 2+. Subsequent FISH testing was interpreted as not amplified with a HER-2 to CEP 17 ratio 1.16. Average HER-2 signal is 1.8 the average CEP 17 signal is 1.55. ? She subsequently underwent a left breast lumpectomy on 06/01/2016. She was found to have a 1.5 cm tumor that was determined to be a grade 2. The closest margin was 3 mm. Lymphovascular invasion was not identified. Number of lymph nodes retrieved was 5. All were negative for disease. ? Was seen by radiation oncology. Radiation was present and is an option but outcomes thought to be the same provided she is treated with aromatase inhibitor therapy. ? Current therapy: 1) Anastrozole since 07/24/2016. ? Pt. overdue for visit. Last seen 06/19/[address] Perry. Mammogram and bone density ordered by PCP January 2021. No new concerns today. Appetite:It's decent. I don't have any issues. Energy level:It's ok. Denies fevers or recent illness. Resp:denies cough or sob Cardiac:denies chest pain/palpitations GI:denies abd pain, n/v, moving bowels regularly :denies dysuria/hematuria Extrem:denies pain Endo:denies hot flashes Neuro:denies symptoms of neuropathy Skin:denies rashes/lesions Heme:denies bleeding The ROS is otherwise negative. Past medical history, appointments, medications, allergies reviewed. No changes. EXAM: BP 172/97 Pulse 65 Temp 36.7 ?C (98.1 ?F) (Temporal) Ht 165.1 cm (5' 5) Wt 65.1 kg (143 lb 8 oz) BMI 23.88 kg/m? APPEARANCE Well appearing, alert, in no acute distress, well-hydrated, well nourished. HEART RRR with normal S1 and S2, no murmurs LUNG clear to auscultation BREAST FEMALE no mass/nodule b/l, dense tissue b/l LYMPH NODES No cervical lymphadenopathy, No supraclavicular lymphadenopathy and No axillary lymphadenopathy. ABDOMEN bowel sounds normoactive, soft, non-tender, non-distended, without organomegaly or palpable masses EXTREMITIES No edema NEURO Awake, alert and oriented x 3, Normal gait and No involuntary motions. SKIN Skin color, texture, turgor normal, no suspicious rashes or lesions ASSESSMENT/PLAN: 1. 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 - No concerning findings on exam. - Tolerating arimidex well. - Reviewed mammogram/bone density with pt. (both ordered by PCP). - Bone density now showing osteoporosis-pt. was not aware of bone density result. - Pt. has now completed over 5 years of arimidex therapy. - Stop arimidex due to worsening bone density. - Follow up with PCP to discuss bone density. - Mammogram due after January 27, 2022 at [facility]. - Follow up in one year. - Pt. aware to call office with any questions/concerns. The patient indicates understanding of these issues and agrees with the plan. All documentation from previous visit of 06/19/19-Dr. Perry was copied and pasted, documentation has been reviewed and edited as necessary for today's visit. Laurie Hamm APRN.TELEGRAPH REPEATER INSTALLER Referring Provider: KASSANDRA PERRY [[id number]] Allergies As of Date: 10/31/2021 (No Known Allergies) Date Reviewed: 10/31/2021 Reviewed by: Laurie Hamm APRN.TELEGRAPH REPEATER INSTALLER - Fully Assessed Reason for Visit: Established Patient [175] Primary Visit Diagnosis:Personal history of breast cancer [Z85.3] Other Visit Diagnosis:Encounter for screening mammogram for high-risk patient [Z12.31] Order(s):GENNA SCREENING W JOEY [[id number]] Order #: [id number] FUTURE Follow-up and Disposition History for Encounter Date Provider Depar (more content not included)... Normal [facility] Vital Signs Date Time Vital Sign Value Performing Clinician Facility 01-03-2024 11:41-0400 Diastolic Blood Pressure Non-Invasive 87 mm[Hg] DR KEELY HERRERA MD [facility] 01-03-2024 11:41-0400 Systolic Blood Pressure Non-Invasive 123 mm[Hg] DR KEELY HERRERA MD [facility] 01-03-2024 10:59-0400 Body temperature 97.7 [degF] DR KEELY HERRERA MD [facility] 01-03-2024 10:59-0400 Diastolic Blood Pressure Non-Invasive 87 mm[Hg] DR KEELY HERRERA MD [facility] 01-03-2024 10:59-0400 Heart rate 70 /min DR KEELY HERRREA MD [facility] 01-03-2024 10:59-0400 Reason For Taking VItal Signs DR KEELY HERRERA MD [facility] 01-03-2024 10:59-0400 Respiratory rate 18 /min DR KEELY HERRERA MD [facility] 01-03-2024 10:59-0400 Systolic Blood Pressure Non-Invasive 123 mm[Hg] DR KEELY HERRERA MD [facility] 01-03-2024 08:07-0400 Diastolic Blood Pressure Non-Invasive 73 mm[Hg] DR KEELY HERRERA MD [facility] 01-03-2024 08:07-0400 Heart rate 75 /min DR KEELY HERRERA MD [facility] 01-03-2024 08:07-0400 Systolic Blood Pressure Non-Invasive 140 mm[Hg] DR KEELY HERRERA MD [facility] 01-03-2024 06:46-0400 Body temperature 97.88 [degF] DR KEELY HERRERA MD [facility] 01-03-2024 06:46-0400 Heart rate 73 /min DR KEELY HERRERA MD [facility] 01-03-2024 06:46-0400 Reason For Taking VItal Signs DR KEELY HERRERA MD [facility] 01-03-2024 06:46-0400 Respiratory rate 18 /min DR KEELY HERRERA MD [facility] 01-03-2024 04:28-0400 Body temperature 97.52 [degF] DR KEELY HERRERA MD [facility] 01-03-2024 04:28-0400 Heart rate 68 /min DR KEELY HERRERA MD [facility] 01-03-2024 04:28-0400 Reason For Taking VItal Signs DR KEELY HERRERA MD [facility] 01-03-2024 04:28-0400 Respiratory rate 18 /min DR KEELY HERRERA MD [facility] 01-02-2024 18:54-0400 Heart rate 80 /min DR KEELY HERRERA MD [facility] 01-02-2024 15:50-0400 Heart rate 73 /min DR KEELY HERRERA MD [facility] 01-02-2024 08:25-0400 Heart rate 68 /min DR KEELY HERRERA MD [facility] 01-01-2024 12:13-0400 Body height 165.[address] KEELY HERRERA MD [facility] 01-01-2024 12:13-0400 Body weight 65.[address] KEELY HERRERA MD [facility] 01-01-2024 12:13-0400 Body weight 23.91 kg/m2 DR KEELY HERRERA MD [facility] 01-01-2024 12:06-0400 Heart rate 64 /min DR KEELY HERRERA MD [facility] 01-01-2024 10:49-0400 Body temperature 97.16 [degF] DR KEELY HERRERA MD [facility] 01-01-2024 10:32-0400 Body temperature 95.18 [degF] DR KEELY HERRERA MD [facility] 01-01-2024 10:20-0400 Respiratory Rate - Anes 26 br/min DR KEELY HERRERA MD [facility] 01-01-2024 10:15-0400 Respiratory Rate - Anes 25 br/min DR KEELY HERRERA MD [facility] 01-01-2024 10:10-0400 Respiratory Rate - Anes 21 br/min DR KEELY HERRERA MD [facility] 01-01-2024 06:25-0400 Body weight 23.91 kg/m2 DR KEELY HERRERA MD [facility] 01-01-2024 06:09-0400 Body height 165.[address] KEELY HERRERA MD [facility] 01-01-2024 06:09-0400 Body temperature 97.88 [degF] DR KEELY HERRERA MD [facility] 01-01-2024 06:09-0400 Body weight 65.[address] KEELY HERRERA MD [facility] 12-10-2023 11:15-[address] KEELY HERRERA MD [facility] 12-10-2023 11:15-[address] KEELY Arellano [facility] 12-10-2023 11:15-0400 Body height [address] KEELY HERRERA MD [facility] 12-10-2023 11:15-0400 Body weight 63.[address] KEELY HERRERA MD [facility] 12-10-2023 11:15-0400 Body weight 23.19 kg/m2 DR KEELY HERRERA MD [facility] 12-10-2023 11:15-0400 Diastolic Blood Pressure Non-Invasive 90 mm[Hg] DR KEELY HERRERA MD [facility] 12-10-2023 11:15-0400 Heart rate 62 /min DR KEELY HERRERA MD [facility] 12-10-2023 11:15-0400 Respiratory rate 18 /min DR KEELY HERRERA MD [facility] 12-10-2023 11:15-0400 Systolic Blood Pressure Non-Invasive 160 mm[Hg] DR KEELY HERRERA MD [facility] 04-10-2023 09:11-0400 Body height 162.56 cm WORKDAY CONSULTANT-C Kevin Chery WORKDAY CONSULTANT Work Phone: [facility] Encounters Encounter Date Encounter Type Care Provider Facility Start: 05-05-2025 ambulatory KEVIN PARRA CATALOG SPECIALIST - TELEGRAPH REPEATER INSTALLER Facility:[facility] Start: 04-28-2025 End: 05-02-2025 ambulatory KEVIN CHERY CATALOG SPECIALIST - TELEGRAPH REPEATER INSTALLER Facility:[facility] Start: 04-28-2025 End: 05-02-2025 Outreach Lab KEVIN CHERY CATALOG SPECIALIST - TELEGRAPH REPEATER INSTALLER [facility] Start: 10-23-2024 End: 10-27-2024 ambulatory KEVIN CHERY CATALOG SPECIALIST - TELEGRAPH REPEATER INSTALLER Facility:[facility] Start: 10-23-2024 End: 10-27-2024 Outreach Lab KEVIN CHERY CATALOG SPECIALIST - TELEGRAPH REPEATER INSTALLER [facility] Start: 03-27-2024 End: 03-31-2024 ambulatory KEVIN CHERY CATALOG SPECIALIST - TELEGRAPH REPEATER INSTALLER Facility:[facility] Start: 03-27-2024 End: 03-31-2024 Outreach Lab KEVIN CHERY CATALOG SPECIALIST - TELEGRAPH REPEATER INSTALLER [facility] Start: 01-16-2024 End: 01-16-2024 ambulatory MIGUEL SLADE PA-C Facility:[facility] Start: 01-16-2024 End: 01-16-2024 Patient encounter procedure MIGUEL SLADE PA-C [facility] Start: 01-07-2024 End: 02-14-2024 Admission to same day surgery center MIGUEL Anna SLADE PA-C [facility] Start: 01-07-2024 End: 02-14-2024 ambulatory KEVIN CHERY CATALOG SPECIALIST - TELEGRAPH REPEATER INSTALLER Facility:[facility] Start: 01-01-2024 End: 01-03-[address] KEELY HERRERA MD Facility:[facility] Start: 01-01-2024 End: 01-03-[address] KEELY HERRERA MD [facility] Start: 12-27-2023 End: 12-31-2023 ambulatory KEVIN CHERY CATALOG SPECIALIST - TELEGRAPH REPEATER INSTALLER Facility:[facility] Start: 12-27-2023 End: 12-31-2023 Outreach Lab KEVIN CHERY CATALOG SPECIALIST - TELEGRAPH REPEATER INSTALLER [facility] Start: 12-26-2023 End: 12-26-2023 ambulatory VIRGINIA KAPADIA CATALOG SPECIALIST-TELEGRAPH REPEATER INSTALLER Facility:[facility] Start: 12-26-2023 End: 12-26-2023 Patient encounter procedure VIRGINIA KAPADIA CATALOG SPECIALIST-TELEGRAPH REPEATER INSTALLER [facility] Start: 12-10-2023 End: 12-10-[address] KEELY HERRERA MD Facility:[facility] Start: 12-10-2023 End: 12-10-[address] KEELY HERRERA MD [facility] Start: 12-10-2023 End: 12-10-[address] KEELY HERRERA MD [facility] Start: 12-10-2023 End: 12-10-[address] KEELY HERRERA MD Facility:[facility] Start: 10-12-2023 End: 10-12-2023 ambulatory KEVIN Arellano MIRI CATALOG SPECIALIST - TELEGRAPH REPEATER INSTALLER Facility:[facility] Start: 10-12-2023 End: 10-12-2023 Patient encounter procedure KEVIN NICKERSONPKINS CATALOG SPECIALIST - TELEGRAPH REPEATER INSTALLER [facility] Start: 10-04-2023 End: 10-08-2023 ambulatory KEVIN NICKERSONPKINS CATALOG SPECIALIST - TELEGRAPH REPEATER INSTALLER Facility:[facility] Start: 10-04-2023 End: 10-08-2023 Outreach Lab KEVIN NICKERSONPKINS CATALOG SPECIALIST - TELEGRAPH REPEATER INSTALLER [facility] Start: 05-01-2023 End: 05-01-2023 ambulatory WORKDAY CONSULTANT-C Kevin Chery WORKDAY CONSULTANT Work Phone: [facility] Work Phone: Start: 05-01-2023 End: 05-01-2023 Patient encounter procedure WORKDAY CONSULTANT-C Kevin Chery WORKDAY CONSULTANT Work Phone: [facility] Work Phone: Start: 04-12-2023 End: 04-16-2023 ambulatory KEVIN CAMPKINS CATALOG SPECIALIST - TELEGRAPH REPEATER INSTALLER Facility:[facility] Start: 04-12-2023 End: 04-16-2023 Outreach Lab KEVIN Eileen MIRI CATALOG SPECIALIST - TELEGRAPH REPEATER INSTALLER [facility] Start: 04-10-2023 End: 04-10-2023 ambulatory WORKDAY CONSULTANT-C Kevin Chery WORKDAY CONSULTANT Work Phone: [facility] Work Phone: Start: 04-10-2023 End: 04-10-2023 Patient encounter procedure WORKDAY CONSULTANT-C Kevin Chery WORKDAY CONSULTANT Work Phone: [facility]Out[facility] Densit[facility] Work Phone: Start: 04-03-2023 End: 04-03-2023 ambulatory Kevin Chery Facility:[facility] Start: 04-03-2023 Non-patient / Non-visit WORKDAY CONSULTANT-C Layne Chery WORKDAY CONSULTANT Work Phone: [facility] Start: 04-03-2023 End: 04-03-2023 Patient encounter procedure WORKDAY CONSULTANT-Soy Chery WORKDAY CONSULTANT Work Phone: [facility]/Neurology Work Phone: Start: 12-28-2022 End: 01-01-2023 Outreach Lab KEVIN Eileen CHERY CATALOG SPECIALIST - TELEGRAPH REPEATER INSTALLER [facility] Start: 02-17-2022 Telephone encounter Laurie Palacios pawan CATALOG SPECIALIST.TELEGRAPH REPEATER INSTALLER Work Phone: Hematology/Oncology Comment on above: Results Start: 02-06-2022 End: 02-06-2022 Patient encounter procedure [facility] Procedures Date Procedure Procedure Detail Performing Clinician Start: 04-10-2023 Dual energy X-ray absorptiometry WORKDAY CONSULTANT-C Kevin Chery WORKDAY CONSULTANT Work Phone: Start: 04-10-2023 Screening mammography N P-Soy Chery WORKDAY CONSULTANT Work Phone: Start: 02-06-2022 Screening mammography Start: 08-27-2015 Excision of mass WESTON Eileen CHERY CATALOG SPECIALIST - TELEGRAPH REPEATER INSTALLER section DR KEELY HORNE MD H/O: surgery History of lumpe ctomy of left breast KEVIN CHERY CATALOG SPECIALIST - TELEGRAPH REPEATER INSTALLER Repair of hip DR KEELY CHAVEZ MD Comment on above: left Transplanted cornea present DR KEELY EHRRERA MD Plan of Treatment Date Care Activity Detail Author Start: 04-27-2022 Influenza vaccination INFLUENZA (Sea son Ended) [facility] Start: 08-27-2021 ADVANCE DIRECTIVE DISCUSSION ADVANCE DIRECTIVE DISCUSSION [facility] Start: 2003 BONE DENSITY BONE DENSITY [facility] Start: 2003 PNEUMOCOCCAL: 65+ (1 - PCV) PNEUMOCOCCAL: 65+ (1 - PCV) [facility] Start: 1988 SHINGRIX VACCINE (1 of 2) LÓPEZ GRIX VACCINE (1 of 2) [facility] Start: 1983 DIABETES SCREEN DIABETES SCREEN [facility] Start: 1957 Urine microalbumin profile DTAP,TDAP ,TD (1 - Tdap) [facility] Start: 1943 COVID-19 VACCINE (#1) COVID-19 VACCI NE (#1) [facility] Immunizations Immunization Date Immunization Notes Care Provider Fa cility 08-10-2021 SARS-CoV-2 (COVID-19 ) Ad26 vaccine, recombinant KEVIN CHERY CATALOG SPECIALIST - TELEGRAPH REPEATER INSTALLER [facility] [place] 01-19-2021 SARS-CoV-2 (COVID-19 ) Ad26 vaccine, recombinant KEVIN CHERY CATALOG SPECIALIST - TELEGRAPH REPEATER INSTALLER [facility] Comment on above: Result Comment: 2022: [id number] Payers Date Payer Category Payer Private Health Insurance [id number] 2024 Unknown [id number] 2022 Self-pay [id number] 2022 Unknown [id number] 2016 Unknown HOSPITAL[facility]MEDICAL GENERIC MEDICAL GENERIC [id number] 2016-Present [phone] [address] [address] [place] [address] Indemnity [id number] 2003 Medicare [id number] 2003 Medicare MEDICARE MEDICAR E A AND B [id number] 2003-Present [phone] [facility] [address] [place] [address] Medicare [id number] 2003 Medicare [id number] 1938 Unknown [id number] [id number] 1938 Unknown [id number] 2.840.1.837367.3.579.2 1938 Unknown [id number] [id number] 1938 Unknown [id number] 2.840.1.634038.3.579.2 1938 Unknown [id number] 2.840.1.736568.3.579.2 1938 Unknown [id number] 2.840.1.673061.3.579.2 .1938 Unknown [id number] 2.840.1.608235.3.579.2 .1938 Unknown [id number] 2.840.1.134135.3.579.2 .1938 Unknown [id number] 2.840.1.342244.3.579.2 1938 Unknown [id number] 2.840.1.592173.3.579.2 .1938 Unknown [id number] 2.840.1.798933.3.579.2 1938 Unknown [id number] 2.16.840.1.488859.3.579.2 .627 1938 Unknown [id number] 2.16.840.1.546063.3.579.2 .627 1938 Unknown [id number] 2.16.840.1.889468.3.579.2 .627 1938 Unknown [id number] 2.16.840.1.461515.3.579.2 .627 Unknown [id number] 2.16.840.1.128171.3.579.2 .462 Unknown [id number] 2.16.840.1.807935.3.579.2 .462 Unknown [id number] [id number] .462 Social History Date Type Detail Facility Start: 05-30-2016 Tobacco smoking stat us OKIS Unknown if ever smoked [facility] Start: 1940 Sex Assigned At Female [facility] Start: 05-18-2016 End: 11-03-2024 Tobacco smoking status OKIS Never smoked tobacco [facility] Start: 05-18-2016 Tobacco use and exposure Smokeless tobacco non-user [facility] Start: 10-31-2021 Alcohol intake 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 Needs some cues for vision and to avoid objects at times. Balance: Static standing: Appears WFL, dynamic balance and gait. Initially needs cues for close proximity to FWW but improves significantly following cues and demonstration. Weight bearing status: WBAT Effusion: min to no leg effusion. Functional Strength: sit to stand: relies heavily on UE assist but able to perform SLIME Palpation: denies tenderness to palpation to bilat LE's, Denies calf pain or tenderness and homans sign is negative bilat. Neurological Screen: Sensation: Grossly intact to light touch on bilat LE's [facility] 01-03-2024 Functional Status Supervised Danuta Nuñez [facility] 01-03-2024 Functional Status Identified as high risk, Room located near nursing station, Bed alert on, Door open, Bathroom light on, Non-Slip footwear [facility] 01-03-2024 Functional Status Nurse Safety Soy barker q2hrs Performed 7pm-7am [facility] 01-03-2024 [facility] Functional Status Demonstrates C orrect Call Light Use Yes [facility] 01-02-2024 Functional Status Danuta [facility] 01-02-2024 Functional Status Independent Danuta [facility] 01-02-2024 Functional Status Lunch Percent 50 [facility] 01-02-2024 Functional Status Mod I Danuta [facility] 01-02-2024 Functional Status Danuta [facility] 01-02-2024 Functional Status Multilevel chandler e, 1st floor bedroom, 1st floor bathroom, 2nd floor bathroom [facility] 01-02-2024 Functional Status Danuta Nuñez [facility] 01-01-2024 Functional Status Danuta Nuñez [facility] 01-01-2024 Functional Status Dinner Percent 5 [facility] 01-01-2024 Functional Status Supervised Danuta Nuñez [facility] 01-01-2024 Functional Status Danuta [facility] 01-01-2024 Functional Status Patient Identi fied Identification band [facility] 01-01-2024 [facility] Date Assessment Result Facility 01-03-2024 Mental Status Orientation Asse ssment Oriented x 4 [facility] 01-03-2024 Mental Status Orientation Oriented x 4 [facility] 01-02-2024 Mental Status [facility] 01-02-2024 Mental Status [facility] Clinical Notes 05-25-2016 to 01-03-2024 Telephone Encounter - Jaida Esqueda MILLWRIGHT SUPERVISOR - 02/17/2022 2:19 PM EDTTelephone Encounter - Laurie Hamm APRN.CNP - 02/17/2022 2:16 PM EDT Note Date & Type Note Facility 01-03-2024 Note Date of Service 01/03/2024 Chief Complaint Osteoarthritis Subjective Sodium level improved today from 127-130 with fluid restriction. Patient is asymptomatic. Preoperative sodium level was 131. Patient reports that pain is well-controlled. Vital signs remained stable overnight. Objective Vitals and Measurements T: 36.5 C (Oral) TMIN: 36.4 C (Oral) TMAX: 36.6 C (Oral) HR: 70(Monitored) RR: 18 BP: 123/87 SpO2: 95% Intake and Output 7AM Yesterday to 7AM Today Intake and Output (Last 24 hours) Intake Supplement Intake 474.00 Output Total Summary Total Intake 474.00 Total Output 0.00 Fluid Balance 474.00 Physical Exam GEN: Appears chronically ill CHEST: Normal S1 and S2. Rhythm is regular. Clear to auscultation, without rales, rhonchi, wheezing. ABD: Positive bowel sounds x 4 quads. Soft, nondistended, nontender. EXT: No significant deformity or joint abnormality. No edema. Peripheral pulses intact. NEURO: Sensation grossly intact SKIN: Skin color normal. Surgical dressing in place. PSYCH: The mental examination revealed the patient was alert and oriented x 4 Weight Dosing Weight: 65.4 kg (01/01/24) Dosing Weight: 65.4 kg (01/01/24) Medications Medications (20) Active Scheduled: (11) aspirin 81 mg EC 81 mg 1 tab(s), Oral, BIDM docusate sodium 100 mg Capsule 100 mg 1 cap(s), Oral, BID docusate-senna (Senokot S) 50 mg-8.6 mg Tablet 2 tab(s), Oral, BID famotidine 20 mg tablet 20 mg 1 tab(s), Oral, qDay ferrous sulfate 325 mg Tablet 325 mg 1 tab(s), Oral, BID folic acid 1 mg tablet 1 mg 1 tab(s), Oral, qDay hydralazine 10 mg Tablet 10 mg 1 tab(s), Oral, BID before brkst/lunch lisinopril 20 mg tablet 40 mg 2 tab(s), Oral, qDay magnesium hydroxide 8% Suspension 30 mL UD 30 mL, Oral, Daily metoprolol succinate 50 mg ER tablet 25 mg 0.5 tab(s), Oral, qDay multivitamin (Myadec) with minerals Therapeutic Multiple Vitamins with Minerals Tablet 1 tab(s), Oral, qDayM Continuous: (0) PRN: (9) acetaminophen 325 mg Tablet 650 mg 2 tab(s), Oral, q4h calcium carbonate 500 mg Chewable 1,000 mg 2 tab(s), Chewed, TID diphenhydramine 25 mg tablet 25 mg 1 tab(s), Oral, q6h diphenhyDRAMINE 50 mg/mL (1 mL) INJ 25 mg 0.5 mL, IV Push, q6h morphine 2 mg/mL 1 mL syringe 2 mg 1 mL, IV Push, q1h ondansetron 2 mg/ 1 mL 2 mL INJ 4 mg 2 mL, IV Push, q8h prochlorperazine 10 mg/2 mL vial 5 mg 1 mL, IV Push, q6h sodium biphosphate-sodium phosphate 19 gm-7 gm Enema 133 mL, Rectal, qDay tramadol 50 mg Tablet 50 mg 1 tab(s), Oral, q6h Lab Results 01/02 05:23 WBC: 9.4 Hgb: 9.9 L Hct: 27.6 L Platelet: 161 Neutrophil %: 77.6 Glucose Level: 120 H Sodium Level: 130 L Potassium Level: 4.5 BUN: 21 H Creatinine Lvl (s): 0.76 01/01 05:27 WBC: 11.2 H Hgb: 9.0 L Hct: 25.7 L Platelet: 162 Neutrophil %: 80.1 H Glucose Level: 100 Sodium Level: 127 L Potassium Level: 5.2 H BUN: 31 H Creatinine Lvl (s): 0.89 Assessment/Plan 1. Osteoarthritis 2. S/P total left hip arthroplasty 3. Hyponatremia Osteoarthritis s/p left total hip arthroplasty. Management per primary team. Pain well controlled. Hyponatremia sodium level improved from 127-130 today with an 1800 mL fluid restriction. Patient is asymptomatic. She will be discharged with a prescription for sodium chloride 1000 mg 3 times daily and 1800 mL fluid restriction. Patient is being given an order to have her labs drawn on 01/07/2024 to evaluate sodium level. She may benefit from a referral to nephrology. This was discussed with the patient as well as her daughter. DVT prophylaxis: SCDs Labs, diagnostics, and progress notes reviewed as noted in HPI Code Status: Full code Plan of care discussed with patient. All questions answered. Patient verbalizes understanding is agreeable to plan of care. Thank you for requesting our participation in the care of your patient. We will continue to follow during their hospitalization. This dictation was performed using voice recognition software and may include grammatical and/or spelling errors. Anticipated Date of Discharge 01/02 Time Spent 42 minutes Digitally Signed by BEV MONTIEL on 01/03/2024 03:05 PM [facility] 01-03-2024 Note Discharge Instructions Thank you for allowing [facility] to assist you with your healthcare needs. The following is important discharge information regarding your hospital visit. Your Diagnosis Anemia HTN, goal below 140/90 Hyponatremia Osteoarthritis S/P total left hip arthroplasty What to do next Instructions From Your Doctor Your sodium level is low. Too much sodium is being released in your urine. You will need to be on a fluid restriction. You are not to have any more than 1800 mL of fluid per day. A prescription has been sent to your pharmacy for sodium chloride tablets to be taken 3 times per day. You are being given an order for lab work to be done on 01/07/2024. You will need to follow-up with your PCP to discuss these results. You would also likely benefit from seeing a technical services assistant (kidney doctor) to further evaluate the cause of your low sodium. Scheduled Follow-Up Appointments Appointment Type When With Where Contact InformationPT Outpatient Evaluation 01/07/2024 02:30 PM [facility] [phone] [facility] Hospital Follow-Up 01/17/2024 10:20 AM KEVIN HARMON APRN, CNP [facility] Follow Up 04/10/2024 09:40 AM [facility] [place] Appointments Follow Up with KEVIN CHERY APRN, CNP When 01/17/2024 10:20 AM EDT Why: This is your post-hospital follow-up appointment to go over your lab work results. Please get your lab work drawn a few days prior to this appointment. Where: [address] [place] [address]- Follow Up with MIGUEL SLADE PA-C, Orthopedic When 01/14/2024 03:30 PM EDT Why: This is your post-op appointment. Follow-up as scheduled. Where: [facility] [address] [place] [id number]- Follow Up with [facility] When 01/07/2024 02:30 PM EDT Why: This is your first physical therapy appointment. Follow-up as scheduled. Where: [address] [place] [address]- [phone] The Following Activity and Diet Have Been Ordered for You No qualifying data available. No qualifying data available. The Following Equipment Has Been Ordered for You No qualifying data available. The Following Treatments Have Been Ordered for You Discharge Labs Discharge Outpatient Labwork - Ordered -- CBC and BMP, Post-operative Anemia and Hyponatremia, follow-up within: 2-3 weeks, Results Notify to: KEVIN CHERY APRN, CNP, 01/02/24 8:26:00 EDT Discharge Outpatient Labwork - Ordered -- BMP, hyponatremia(? SIADH), Your appointment is: 01/07/24 8:00:00 EDT, 01/03/24 13:00:00 EDT Discharge Radiology No qualifying data available. Other Therapies Physical Therapy Outpatient Eval & Treat (Physical Therapy Eval and Treat Outpatient) - Future -- 01/07/24, Future Order, ~PATIENTLOCATION, Once, No Post Acute Orders No qualifying data available. Someone Will Contact You Regarding These Home Health Referrals No home referrals have been ordered for you. No one will call you. Allergies NKA Medications Please ask your primary doctor or pharmacist before taking any other medication not listed, including over the counter drugs, herbal medications, vitamins and or supplements as they may interact with your home medications. What How Much When Why Instructions Last Dose New aspirin (aspirin 81 mg oral delayed release tablet) 1 tab(s) by mouth Two (2) times a day Duration: 30 Days Take 81 mg aspirin twice daily with food for 4 weeks postoperatively for DVT prophylaxis. Pickup at [facility] #[id number] 01/03/24 9am New docusate-senna (Senokot S 50 mg-8.6 mg oral tablet) 2 tab(s) by mouth Two (2) times a day Duration: 3 Days Take as needed for constipation Pickup at [facility] #[id number] 01/03/24 9am New famotidine (Pepcid 20 mg oral tablet) 1 tab(s) by mouth Once a day Pickup at [facility] #[id number] 01/03/24 9am New ferrous sulfate (ferrous sulfate 325 mg (65 mg elemental iron) oral tablet) 1 tab(s) by mouth Two (2) times a day Duration: 21 Days Pickup at [facility] #[id number] 01/03/24 12 noon New folic acid (folic acid 1 mg oral tablet) 1 tab(s) by mouth Once a day Duration: 21 Days Pickup at [facility] #[id number] 01/03/24 9am New ondansetron (ondansetron 4 mg oral tablet) 1 tab(s) by mouth Every 8 hours as needed for Nausea/Vomiting Pickup at [facility][id number] 01/03/24 4am New sodium chloride (sodium chloride 1000 mg oral tablet) 1 gram(s) by mouth Three (3) times a day Pickup at [facility] #[id number] Start today New traMADol (Ultram 50 mg oral tablet) See instructions S/P total left hip arthroplasty 1-2 tab(s) Oral q6h Pickup at [facility] #[id number] 01/03/24 8am Unchanged acetaminophen 1,000 Milligram by mouth Every 6 hours as needed for as needed for pain 01/03/24 9am Unchanged cholecalciferol (Vitamin D3) 100 Microgram by mouth Every day not given in hospital Unchanged hydrALAZINE (hydrALAZINE 10 mg oral tablet) 1 tab(s) by mouth Two (2) times daily before breakfast & lunch Uncontrolled hypertension Duration: 30 Days 01/03/24 12 noon Unchanged metoprolol (metoprolol succinate 25 mg oral TABLET extended release) 1 tab(s) by mouth Once a day Uncontrolled hypertension 01/03/24 9am Unchanged ramipril (ramipril 10 mg oral capsule) 1 cap by mouth Once a day Uncontrolled hypertension Dose adjustment not given in hospital Unchanged spironolactone (spironolactone 25 mg oral tablet) 1 tab(s) by mouth Once a day HTN, goal below 140/90 Duration: 90 Days Take with food 01/03/24 9am Pharmacy Information [facility] #[id number]: [address], [place] [id number] [phone] What How Much When Comments Stop Taking ibuprofen 600 Milligram by mouth Every 6 hours as needed for as needed for arthritis Please take this list to your next doctor s visit. Bring all medications you take, including over the counter medications, herbals and other supplements with you to your doctor s visit. Patients and families are reminded to discard old lists and to update any records with all medication providers or retail pharmacies. Education Materials [facility] Post-operative Instructions PLEASE FOLLOW [facility] POST-OP INSTRUCTIONS GIVEN WATCH FOR SIGNS OF INFECTION: call the office ([phone]) if experencing any of the following: (Usually appears 36-48 hours after surgery) Increased temperature (101 degrees Fahrenheit or higher) Redness or swelling Increased uncontrolled pain Foul odor or drainage Calf discomfort Significant swelling Or if having any chest pain, shortness of breath, or difficulty breathing or swallowing call the office or go the nearest Emergency Room. If you have any questions, please call your doctor at the number listed on your follow up instructions. Form: 338A ([id number]) R: 12/31 Additional Information VACCINATE! IT SAVES LIVES! Members of the community who have not yet received the COVID-19 vaccine and would like to receive it can visit one of [facility] vaccine clinics. There are many vaccine clinic locations within the [facility]. For locations and available times, please visit [email or web address].o hio.gov/. It is important to note that some COVID mobile vaccine clinics are held outdoors and may be canceled in rainy or stormy conditions. To learn more about pediatric vaccinations (ages 5-11), we invite you to visit the [facility] webpage. [email or web address] [email or web address] To learn more about the COVID-19 vaccine, we invite you to visit the CDC website for a list of frequently asked questions.https://www.cdc.gov/co ronavirus/2019-ncov/vaccines/faq .html [facility] Patient Portal Access Instructions: Stay connected with your healthcare team and access your personal medical information anytime with the [facility] Patient Portal. Please follow the directions below to create your [email or web address] account: 1.Access the email account you provided upon registration to the hospital/physician office.2.Look for an invitation email from [facility].3.Open the email and access the invitation link: Accept Invitation to [facility].4.Fill in the required campos to create your account. To access your account, visit [employer]. Click the blue button labeled Access Patient Portal and then log in with the username and password that you created in the steps above. You will be able to view your test results, lab results, a summary of your visits, upcoming appointments and more. There is also a convenient messaging option where you can send secure messages to your provider. In addition, you will have the ability to download any documents or summaries to your computer and/or send the information securely to a physician. Remember that your healthcare information is confidential, so carefully consider who you will allow to register on the [facility] Patient Portal for access to your information. You can also access the [facility] Patient Portal on the [facility]ela. Simply click on Patient Portal and then log into your account. If you would like to receive a full copy of your medical records, please contact the [facility] Medical Records Department by calling [phone], Sunday through Sunday between 8 a.m. and 4:30 p.m. HOW TO SAFELY DISPOSE OF PRESCRIPTION MEDICATIONS Please use one of the following methods to safely dispose of your unused medications. 1.Use a drug disposal kit: the drug disposal pouch allows you to safely discard your old and unused drugs. Ask your nurse to give you one when you are discharged.2.Visit a local take-back location: Many local pharmacies and police departments have programs that collect old and unwanted prescription drugs. Call your local pharmacy or go to [email or web address] to find one close to you.3.Make use of household items: Use cat litter or old coffee grounds to dispose medications if other options are not available. Mix your drugs with these household products, seal them in an airtight container and throw it into the garbage. Call [facility]: [phone] to be sure your drugs can be disposed of in this way. Some medicines may require a different approach.4.Never flush your medications down the toilet. IF YOU HAVE BEEN PRESCRIBED AN OPIOID FOR PAIN If you have been prescribed an opioid (such as hydrocodone, oxycodone or morphine), it is critical to understand the possible side effects and risks of opioid pain medications. Even when taken as directed, opioids can have several side effects including: Tolerance, meaning you might need to take more of a medication for the same pain relief. Nausea, vomiting and/or constipation. Sleepiness, dizziness, dry mouth, confusion, depression or itching. Physical dependence, meaning you have withdrawal symptoms when a medication is stopped, can develop within a few days. KNOW YOUR RESPONSIBILITIES It is important to know exactly how much and how often to take the opioid pain medications you are prescribed. Never take opioids in higher amounts or more often than prescribed. Do not combine opioids with alcohol or other drugs that cause drowsiness, such as benzodiazepines, also known as benzos, including diazepam and alprazolam, muscle relaxants or sleep aids. Never sell or share prescription opioids. This is illegal. Store opioids in a secure place and out of reach of others (including children, family, friends and visitors). The last page of this document has been signed and retained as a CHART COPY. Signatures Patient Education Materials [facility] Post-op Instruction 03/2017 (75240) Medication Leaflets My discharge plan and instructions have been reviewed and explained to me and I,KELY PEREZ understand my current condition and have read and understand these discharge instructions. I have received a written copy of the plan/instructions. If I have questions, I am aware that I should contact my doctor. Patient/Proof Technician Signature: Date/Time: Relationship to Patient: Witness Name/Signature: Date/Time: [facility] [place] 01-03-2024 Note Date of Service January 03, 2024 Subjective The patient was sitting in bed upon examination. Patient denies any chest pain, shortness of breath, dizziness, lightheadedness, or calf pain. No adverse overnight events. Pain has been controlled on medications. Patient did have some new onset nausea yesterday and this morning. She states she is not tolerating the protein drink Maury. Patient states her pain has been very well-controlled with regards to her left hip. She has tolerated the tramadol and Tylenol. We are holding off of nonsteroidal anti-inflammatories as she was having some blood pressure concerns preoperatively. Patient states she has had a bowel movement. Her labs have been reviewed in which the potassium has resolved as well as the leukocytosis. Her sodium has increased as well as her hemoglobin. Medicine is currently on board for assisting on managing the hyponatremia. Patient did have hyponatremia preoperatively. Objective Vitals and Measurements T: 36.6 C (Oral) TMIN: 36.4 C (Oral) TMAX: 36.6 C (Oral) HR: 75(Apical) RR: 18 BP: 140/73 SpO2: 97% Intake and Output 7AM Yesterday to 7AM Today Intake and Output (Last 24 hours) Intake Supplement Intake 477.00 Output Urine Count 2.00 Total Summary Total Intake 477.00 Total Output 0.00 Fluid Balance 477.00 Physical Exam Vital signs stable, afebrile Left hip is soft and supple SCD's and IDALIA Hose in place bilaterally Patient is able to plantarflex and dorsiflex actively Sensation is intact to saphenous, sural, superficial and deep peroneal, and tibial distribution Dressing is clean dry and intact Negative signs and symptoms of DVT, negative Homans bilaterally Weight Dosing Weight: 65.4 kg (01/01/24) Dosing Weight: 65.4 kg (01/01/24) Medications Medications (20) Active Scheduled: (11) aspirin 81 mg EC 81 mg 1 tab(s), Oral, BIDM docusate sodium 100 mg Capsule 100 mg 1 cap(s), Oral, BID docusate-senna (Senokot S) 50 mg-8.6 mg Tablet 2 tab(s), Oral, BID famotidine 20 mg tablet 20 mg 1 tab(s), Oral, qDay ferrous sulfate 325 mg Tablet 325 mg 1 tab(s), Oral, BID folic acid 1 mg tablet 1 mg 1 tab(s), Oral, qDay hydralazine 10 mg Tablet 10 mg 1 tab(s), Oral, BID before brkst/lunch lisinopril 20 mg tablet 40 mg 2 tab(s), Oral, qDay magnesium hydroxide 8% Suspension 30 mL UD 30 mL, Oral, Daily metoprolol succinate 50 mg ER tablet 25 mg 0.5 tab(s), Oral, qDay multivitamin (Myadec) with minerals Therapeutic Multiple Vitamins with Minerals Tablet 1 tab(s), Oral, qDayM Continuous: (0) PRN: (9) acetaminophen 325 mg Tablet 650 mg 2 tab(s), Oral, q4h calcium carbonate 500 mg Chewable 1,000 mg 2 tab(s), Chewed, TID diphenhydramine 25 mg tablet 25 mg 1 tab(s), Oral, q6h diphenhyDRAMINE 50 mg/mL (1 mL) INJ 25 mg 0.5 mL, IV Push, q6h morphine 2 mg/mL 1 mL syringe 2 mg 1 mL, IV Push, q1h ondansetron 2 mg/ 1 mL 2 mL INJ 4 mg 2 mL, IV Push, q8h prochlorperazine 10 mg/2 mL vial 5 mg 1 mL, IV Push, q6h sodium biphosphate-sodium phosphate 19 gm-7 gm Enema 133 mL, Rectal, qDay tramadol 50 mg Tablet 50 mg 1 tab(s), Oral, q6h Lab Results 01/02 05:23 WBC: 9.4 Hgb: 9.9 L Hct: 27.6 L Platelet: 161 Neutrophil %: 77.6 Glucose Level: 120 H Sodium Level: 130 L Potassium Level: 4.5 BUN: 21 H Creatinine Lvl (s): 0.76 05/08 05:27 WBC: 11.2 H Hgb: 9.0 L Hct: 25.7 L Platelet: 162 Neutrophil %: 80.1 H Glucose Level: 100 Sodium Level: 127 L Potassium Level: 5.2 H BUN: 31 H Creatinine Lvl (s): 0.89 EKG No qualifying data available. Assessment/Plan Anemia HTN, goal below 140/90 Hyponatremia Osteoarthritis 1. Status post left direct anterior total hip arthroplasty postop day #2 2. Continue pain medications: Tylenol and tramadol. We are unable to use nonsteroidal anti-inflammatories as patient was having blood pressure control issues prior to surgery. I would defer postoperatively future nonsteroidal anti-inflammatories to the primary care physician. Patient reports that she has been tolerating the tramadol. 3. DVT prophylaxis: Take 81 mg aspirin twice daily with food for 4 weeks postoperatively for DVT prophylaxis. Patient denies past history of DVT or pulmonary embolism. 4. Physical therapy: Weightbearing as tolerated with walker 5. H & H: 9.9/27.6, asymptomatic. Postoperative anemia secondary to blood loss from surgery versus dilutional component. Patient does have history of macrocytic anemia. Patient had estimated blood loss 350 mL with 1600 mL crystalloid replacement. Patient denies any dizziness or lightheadedness. She will be placed on ferrous sulfate and folic acid. Case management scheduled follow-up with primary care physician on January 17, 2024 for repeat lab work and continued management of the hyponatremia and postoperative anemia.. I would defer further treatment with regards to the anemia to the primary care physician upon follow-up. I did discuss with the patient the potential for constipation associated with ferrous sulfate. She will have stool softener to use as needed. I also explained to her that if she is having difficulty with constipation to change the medication from twice daily to once daily. She voiced understanding and agreement. 6. Reactive Leukocytosis: Resolved and currently 9.4, afebrile. Patient did receive decadron intra-operatively. No clinical signs of infection. 7. Hyponatremia: Currently 130. Preoperatively she was initially at 131 and with repeat lab work preoperatively she came up to 133. Patient states the primary care physician is trying to figure out the reason for her hyponatremia. Medicine is currently on board and I do appreciate their recommendations for the hyponatremia. I did discuss case with medicine and this will ultimately determine discharge possibly today. 8. Encouraged incentive spirometry 9. Continue postoperative medical management per medicine 10. Postoperative nausea: Patient states she just does not have an appetite at this time. The Maury protein drink in the hospital she did not agree with. I will give her prescription for as needed Zofran for any nausea. 11. Postoperative constipation: Patient has had a bowel movement in the hospital. She will be given stool softener to take on an as-needed basis. I did explain to her that the iron can be associated with some constipation and she will use the stool softener on an as-needed basis as described above. 12. Disposition: Patient does appear to be doing well from an orthopedic standpoint. She has been tolerating therapy. The pain has been adequately controlled. Patient has required additional night stay secondary to medical problem with hyponatremia. Discharge planning will ultimately be based upon clearance from medicine with regards to the hyponatremia. I did discuss case with medicine. I am going to plan for possible discharge home this afternoon and medicine will let orthopedics know if she is appropriate from a medical standpoint. Patient does have outpatient follow-up with the primary care physician for continued management with her postoperative anemia and hyponatremia. She would like her medications E scribed to [facility] in [facility]. She does have outpatient physical therapy established. She will follow-up per postoperative instructions. I again discussed with the patient in great detail all above medications and all questions were answered. She will remove her dressing on postoperative day #5. She is able to shower with this dressing and continue to shower once the dressing has been removed. She is only to place gentle soap and water on the incision postoperatively and avoid any topical ointments, salves, Neosporin, alcohol pads. No submerging underwater for 6 weeks postoperatively. She was instructed to contact our office upon discharge with any concerns or questions. I again emphasized the importance of her follow-up with the primary care physician upon discharge to continue to manage her hyponatremia and postoperative anemia. I have reviewed the [place] Automated Rx Reporting System (OARRS) report for this patient for refill pattern and other prescriber involvement as part of the appropriate surveillance for the provision of acute and chronic controlled medications. The report was requested and reviewed on the date of this entry, and was considered in the prescribing process This dictation was created using voice recognition software. Phonetic and/or grammatical errors may exist. Digitally Signed by MIGUEL SLADE PA-C on 01/03/2024 09:17 AM [facility] 01-03-2024 Hospital Discharg e instructions Patient Education 01/03/2024 09:18:16 5 - [facility] Post-op Instruction 03/2017 (51839) [facility] Post-operative Instructions PLEASE FOLLOW [facility] POST-OP INSTRUCTIONS GIVEN WATCH FOR SIGNS OF INFECTION: call the office ([phone]) if experencing any of the following: (Usually appears 36-48 hours after surgery) Increased temperature (101 degrees Fahrenheit or higher) Redness or swelling Increased uncontrolled pain Foul odor or drainage Calf discomfort Significant swelling Or if having any chest pain, shortness of breath, or difficulty breathing or swallowing call the office or go the nearest Emergency Room. If you have any questions, please call your doctor at the number listed on your follow up instructions. Form: [id number]) R: 12/31 Follow Up Care 10/24/2023 12:26:13 With:[facility] Address: [address] [place] [phone] When:01/07/2024 14:30:00 Comments:This is your first physical therapy appointment. Follow-up as scheduled. With:MIGUEL SLADE PA-C, Orthopedic Address: [facility] [address] [place] [phone] When:01/14/2024 15:30:00 Comments:This is your post-op appointment. Follow-up as scheduled. With:KEVIN CHERY APRN [facility] Address: [address] [place] [phone]- When:01/17/2024 10:20:00 Comments:This is your post-hospital follow-up appointment to go over your lab work results. Please get your lab work drawn a few days prior to this appointment. [facility] 01-03-2024 Note Date of Service January 03, 2024 Subjective The patient was sitting in bed upon examination. Patient denies any chest pain, shortness of breath, dizziness, lightheadedness, or calf pain. No adverse overnight events. Pain has been controlled on medications. Patient did have some new onset nausea yesterday and this morning. She states she is not tolerating the protein drink Maury. Patient states her pain has been very well-controlled with regards to her left hip. She has tolerated the tramadol and Tylenol. We are holding off of nonsteroidal anti-inflammatories as she was having some blood pressure concerns preoperatively. Patient states she has had a bowel movement. Her labs have been reviewed in which the potassium has resolved as well as the leukocytosis. Her sodium has increased as well as her hemoglobin. Medicine is currently on board for assisting on managing the hyponatremia. Patient did have hyponatremia preoperatively. Objective Vitals and Measurements T: 36.6 C (Oral) TMIN: 36.4 C (Oral) TMAX: 36.6 C (Oral) HR: 75(Apical) RR: 18 BP: 140/73 SpO2: 97% Intake and Output 7AM Yesterday to 7AM Today Intake and Output (Last 24 hours) Intake Supplement Intake 477.00 Output Urine Count 2.00 Total Summary Total Intake 477.00 Total Output 0.00 Fluid Balance 477.00 Physical Exam Vital signs stable, afebrile Left hip is soft and supple SCD's and IDALIA Hose in place bilaterally Patient is able to plantarflex and dorsiflex actively Sensation is intact to saphenous, sural, superficial and deep peroneal, and tibial distribution Dressing is clean dry and intact Negative signs and symptoms of DVT, negative Homans bilaterally Weight Dosing Weight: 65.4 kg (01/01/24) Dosing Weight: 65.4 kg (01/01/24) Medications Medications (20) Active Scheduled: (11) aspirin 81 mg EC 81 mg 1 tab(s), Oral, BIDM docusate sodium 100 mg Capsule 100 mg 1 cap(s), Oral, BID docusate-senna (Senokot S) 50 mg-8.6 mg Tablet 2 tab(s), Oral, BID famotidine 20 mg tablet 20 mg 1 tab(s), Oral, qDay ferrous sulfate 325 mg Tablet 325 mg 1 tab(s), Oral, BID folic acid 1 mg tablet 1 mg 1 tab(s), Oral, qDay hydralazine 10 mg Tablet 10 mg 1 tab(s), Oral, BID before brkst/lunch lisinopril 20 mg tablet 40 mg 2 tab(s), Oral, qDay magnesium hydroxide 8% Suspension 30 mL UD 30 mL, Oral, Daily metoprolol succinate 50 mg ER tablet 25 mg 0.5 tab(s), Oral, qDay multivitamin (Myadec) with minerals Therapeutic Multiple Vitamins with Minerals Tablet 1 tab(s), Oral, qDayM Continuous: (0) PRN: (9) acetaminophen 325 mg Tablet 650 mg 2 tab(s), Oral, q4h calcium carbonate 500 mg Chewable 1,000 mg 2 tab(s), Chewed, TID diphenhydramine 25 mg tablet 25 mg 1 tab(s), Oral, q6h diphenhyDRAMINE 50 mg/mL (1 mL) INJ 25 mg 0.5 mL, IV Push, q6h morphine 2 mg/mL 1 mL syringe 2 mg 1 mL, IV Push, q1h ondansetron 2 mg/ 1 mL 2 mL INJ 4 mg 2 mL, IV Push, q8h prochlorperazine 10 mg/2 mL vial 5 mg 1 mL, IV Push, q6h sodium biphosphate-sodium phosphate 19 gm-7 gm Enema 133 mL, Rectal, qDay tramadol 50 mg Tablet 50 mg 1 tab(s), Oral, q6h Lab Results 01/02 05:23 WBC: 9.4 Hgb: 9.9 L Hct: 27.6 L Platelet: 161 Neutrophil %: 77.6 Glucose Level: 120 H Sodium Level: 130 L Potassium Level: 4.5 BUN: 21 H Creatinine Lvl (s): 0.76 01/01 05:27 WBC: 11.2 H Hgb: 9.0 L Hct: 25.7 L Platelet: 162 Neutrophil %: 80.1 H Glucose Level: 100 Sodium Level: 127 L Potassium Level: 5.2 H BUN: 31 H Creatinine Lvl (s): 0.89 EKG No qualifying data available. Assessment/Plan Anemia HTN, goal below 140/90 Hyponatremia Osteoarthritis 1. Status post left direct anterior total hip arthroplasty postop day #2 2. Continue pain medications: Tylenol and tramadol. We are unable to use nonsteroidal anti-inflammatories as patient was having blood pressure control issues prior to surgery. I would defer postoperatively future nonsteroidal anti-inflammatories to the primary care physician. Patient reports that she has been tolerating the tramadol. 3. DVT prophylaxis: Take 81 mg aspirin twice daily with food for 4 weeks postoperatively for DVT prophylaxis. Patient denies past history of DVT or pulmonary embolism. 4. Physical therapy: Weightbearing as tolerated with walker 5. H & H: 9.9/27.6, asymptomatic. Postoperative anemia secondary to blood loss from surgery versus dilutional component. Patient does have history of macrocytic anemia. Patient had estimated blood loss 350 mL with 1600 mL crystalloid replacement. Patient denies any dizziness or lightheadedness. She will be placed on ferrous sulfate and folic acid. Case management scheduled follow-up with primary care physician on January 17, 2024 for repeat lab work and continued management of the hyponatremia and postoperative anemia.. I would defer further treatment with regards to the anemia to the primary care physician upon follow-up. I did discuss with the patient the potential for constipation associated with ferrous sulfate. She will have stool softener to use as needed. I also explained to her that if she is having difficulty with constipation to change the medication from twice daily to once daily. She voiced understanding and agreement. 6. Reactive Leukocytosis: Resolved and currently 9.4, afebrile. Patient did receive decadron intra-operatively. No clinical signs of infection. 7. Hyponatremia: Currently 130. Preoperatively she was initially at 131 and with repeat lab work preoperatively she came up to 133. Patient states the primary care physician is trying to figure out the reason for her hyponatremia. Medicine is currently on board and I do appreciate their recommendations for the hyponatremia. I did discuss case with medicine and this will ultimately determine discharge possibly today. 8. Encouraged incentive spirometry 9. Continue postoperative medical management per medicine 10. Postoperative nausea: Patient states she just does not have an appetite at this time. The Maury protein drink in the hospital she did not agree with. I will give her prescription for as needed Zofran for any nausea. 11. Postoperative constipation: Patient has had a bowel movement in the hospital. She will be given stool softener to take on an as-needed basis. I did explain to her that the iron can be associated with some constipation and she will use the stool softener on an as-needed basis as described above. 12. Disposition: Patient does appear to be doing well from an orthopedic standpoint. She has been tolerating therapy. The pain has been adequately controlled. Patient has required additional night stay secondary to medical problem with hyponatremia. Discharge planning will ultimately be based upon clearance from medicine with regards to the hyponatremia. I did discuss case with medicine. I am going to plan for possible discharge home this afternoon and medicine will let orthopedics know if she is appropriate from a medical standpoint. Patient does have outpatient follow-up with the primary care physician for continued management with her postoperative anemia and hyponatremia. She would like her medications E scribed to [facility] in [facility]. She does have outpatient physical therapy established. She will follow-up per postoperative instructions. I again discussed with the patient in great detail all above medications and all questions were answered. She will remove her dressing on postoperative day #5. She is able to shower with this dressing and continue to shower once the dressing has been removed. She is only to place gentle soap and water on the incision postoperatively and avoid any topical ointments, salves, Neosporin, alcohol pads. No submerging underwater for 6 weeks postoperatively. She was instructed to contact our office upon discharge with any concerns or questions. I again emphasized the importance of her follow-up with the primary care physician upon discharge to continue to manage her hyponatremia and postoperative anemia. I have reviewed the [place] Automated Rx Reporting System (OARRS) report for this patient for refill pattern and other prescriber involvement as part of the appropriate surveillance for the provision of acute and chronic controlled medications. The report was requested and reviewed on the date of this entry, and was considered in the prescribing process This dictation was created using voice recognition software. Phonetic and/or grammatical errors may exist. Digitally Signed by MIGUEL SLADE PA-C on 01/03/2024 09:17 AM [facility] 01-02-2024 Note Date of Service 01/02/2024 Chief Complaint left hip pain Subjective Patient seen and evaluated this morning while resting in bed. She states that she is feeling much better today. She had some left flank pain yesterday she feels was from the positioning on the table. She feels that she slept well overnight. She denies any cough or shortness of breath. She has been up multiple times, every 2 hours, to use the bathroom and feels that she is urinating without difficulty. She had some nausea yesterday and did not have much of her clear liquids. She feels that that has resolved this morning. She also feels that her pain is controlled currently with oral medications. Patient advised that her sodium was lower than we like for discharge, 127. Patient states that she has had problems with that recently but she is not sure why. Patient did report that she was drinking a lot of water overnight. We will start an 1800 cc fluid restriction today. We will check urine sodium, urine osmolality and serum osmolality to try to pinpoint the cause of the hyponatremia. Her pre-op sodium was 133 but she can discharge when over 130. Patient is fine to stay overnight. She denies any fever, chills, chest pain, abdominal pain, nausea or dysuria. All questions answered. Objective Vitals and Measurements T: 36.4 C (Oral) TMIN: 36.3 C (Oral) TMAX: 37.0 C (Oral) HR: 73(Monitored) RR: 18 BP: 120/70 SpO2: 95% Intake and Output 7AM Yesterday to 7AM Today Intake and Output (Last 24 hours) Intake Supplement Intake 480.00 Output Urine Count 4.00 Total Summary Total Intake 480.00 Total Output 0.00 Fluid Balance 480.00 Physical Exam General: No acute distress. Patient is alert, chronically ill-appearing. Skin: No rash. Skin is warm, dry and intact. HEENT: Head is normocephalic, atraumatic. Pupils are equal, round and reactive. Neck: Supple. No lymphadenopathy, thyromegaly. Lungs: Bilaterally clear but diminished without crepitation or wheeze. Unlabored. Heart: Heart is regular rhythm, S1, S2. No murmurs, gallops or rubs. Abdomen: Abdomen is soft, nontender. Bowels sounds present in all quadrants. Extremities: No clubbing, cyanosis, or edema. Peripheral pulses palpable. No calf tenderness. Left hip surgical dressing is dry and intact. Neurological: Patient is awake and alert to person, place and time. Following simple commands, moving all extremities. Weight Dosing Weight: 65.4 kg (01/01/24) Dosing Weight: 65.4 kg (01/01/24) Medications Medications (22) Active Scheduled: (14) acetaminophen 500 mg Tablet 1,000 mg 2 tab(s), Oral, q6h aspirin 81 mg EC 81 mg 1 tab(s), Oral, BIDM docusate sodium 100 mg Capsule 100 mg 1 cap(s), Oral, BID docusate-senna (Senokot S) 50 mg-8.6 mg Tablet 2 tab(s), Oral, BID famotidine 20 mg tablet 20 mg 1 tab(s), Oral, qDay ferrous sulfate 325 mg Tablet 325 mg 1 tab(s), Oral, BID folic acid 1 mg tablet 1 mg 1 tab(s), Oral, qDay hydralazine 10 mg Tablet 10 mg 1 tab(s), Oral, BID before brkst/lunch lisinopril 20 mg tablet 40 mg 2 tab(s), Oral, qDay magnesium hydroxide 8% Suspension 30 mL UD 30 mL, Oral, Daily metoprolol succinate 50 mg ER tablet 25 mg 0.5 tab(s), Oral, qDay multivitamin (Myadec) with minerals Therapeutic Multiple Vitamins with Minerals Tablet 1 tab(s), Oral, qDayM spironolactone 25 mg tablet 25 mg 1 tab(s), Oral, qDay tramadol 50 mg Tablet 50 mg 1 tab(s), Oral, q6h Continuous: (0) PRN: (8) acetaminophen 325 mg Tablet 650 mg 2 tab(s), Oral, q4h diphenhydramine 25 mg tablet 25 mg 1 tab(s), Oral, q6h diphenhyDRAMINE 50 mg/mL (1 mL) INJ 25 mg 0.5 mL, IV Push, q6h morphine 2 mg/mL 1 mL syringe 2 mg 1 mL, IV Push, q1h ondansetron 2 mg/ 1 mL 2 mL INJ 4 mg 2 mL, IV Push, q8h prochlorperazine 10 mg/2 mL vial 5 mg 1 mL, IV Push, q6h sodium biphosphate-sodium phosphate 19 gm-7 gm Enema 133 mL, Rectal, qDay tramadol 50 mg Tablet 50 mg 1 tab(s), Oral, q6h Lab Results 01/01 05:27 WBC: 11.2 H Hgb: 9.0 L Hct: 25.7 L Platelet: 162 Neutrophil %: 80.1 H Glucose Level: 100 Sodium Level: 127 L Potassium Level: 5.2 H BUN: 31 H Creatinine Lvl (s): 0.89 12/31 06:40 Glucose Level: 94 Sodium Level: 133 L Potassium Level: 4.3 BUN: 28 H Creatinine Lvl (s): 0.70 Imaging Results and Diagnostics XR Hip Left w/Pelvis 4 Views Result Date: January 01, 2024 Verified By: SAIRA EDMONDS MD CLINICAL STATEMENT: IMPRESSION: Surgical changes. EKG No qualifying data available. Assessment/Plan 1. Osteoarthritis Chronic, s/p left hip arthroplasty. Management per primary team. Consult placed to PT and OT to evaluate and treat - following. Continue PO pain medication and antiemetics. Repeat CBC and BMP in the am. 2. Hyponatremia Acute on chronic, down to 127 from 133 yesterday. Will start 1800 cc fluid restriction. Check urine sodium, urine osmolality and serum osmolality. 3. HTN, goal below 140/90 Chronic. Continue current antihypertensives. SBP goal of 140 or less. DVT prophylaxis with aspirin. Code status: Full Code. Labs, diagnostic test and progress notes reviewed as noted in HPI. Plan of care discussed with patient. All questions answered. Patient verbalizes understanding and is agreeable with plan of care. This case was discussed with collaborating physician, Dr. Ayo Garza. Anticipated Date of Discharge 01/03/2024 Time Spent 35 minutes spent reviewing past diagnostic tests, reviewing lab results, vital sign trends, medical history, reviewing medications and ordering home medications, examining patient, discussed plan of care with nursing, neonatal social worker and therapy, collaborating with physician, and documenting in chart. Digitally Signed by TITI COHEN on 01/02/2024 04:14 PM [facility] 01-02-2024 Note Date of Service January 02, 2024 Subjective The patient was sitting in bed upon examination. Patient denies any chest pain, shortness of breath, dizziness, lightheadedness, nausea or vomiting, or calf pain. No adverse overnight events. Pain has been controlled on medications. Patient states she does feel better today with regards to her left hip. The left thigh pain has resolved. However patient's labs that were drawn today do show a drop in her sodium. She does have history of hyponatremia. She has also had a drop in her hemoglobin with postoperative anemia. Patient will require an additional night stay as medicine is currently working with her due to the hyponatremia. Patient does report upon discharge she has significant amount of help with her daughters at home. She does wish to try to go home when medically stable. Objective Vitals and Measurements T: 36.4 C (Oral) TMIN: 35.1 C (Temporal Artery) TMAX: 36.4 C (Oral) HR: 71(Monitored) RR: 16 BP: 150/82 SpO2: 93% HT: 165.4 cm WT: 65.4 kg BMI: 23.91 Intake and Output 7AM Yesterday to 7AM Today Intake and Output (Last 24 hours) Intake Administration Information 1637.93 Supplement Intake 240.00 Output Intra-Op EBL 350.00 Urine Count 2.00 Total Summary Total Intake 1877.93 Total Output 350.00 Fluid Balance 1527.93 Physical Exam Vital signs stable, afebrile Left thigh is soft and supple SCD's and IDALIA Hose in place bilaterally Patient is able to plantarflex and dorsiflex actively Sensation is intact to saphenous, sural, superficial and deep peroneal, and tibial distribution Dressings are clean dry and intact Negative signs and symptoms of DVT, negative Homans bilaterally Weight Dosing Weight: 65.4 kg (01/01/24) Dosing Weight: 65.4 kg (01/01/24) Medications Medications (22) Active Scheduled: (14) acetaminophen 500 mg Tablet 1,000 mg 2 tab(s), Oral, q6h aspirin 81 mg EC 81 mg 1 tab(s), Oral, BIDM bisacodyl 5 mg EC tablet 10 mg 2 tab(s), Oral, Once docusate sodium 100 mg Capsule 100 mg 1 cap(s), Oral, BID docusate-senna (Senokot S) 50 mg-8.6 mg Tablet 2 tab(s), Oral, BID famotidine 20 mg tablet 20 mg 1 tab(s), Oral, qDay hydralazine 10 mg Tablet 10 mg 1 tab(s), Oral, BID before brkst/lunch lisinopril 20 mg tablet 40 mg 2 tab(s), Oral, qDay magnesium hydroxide 8% Suspension 30 mL UD 30 mL, Oral, Daily metoprolol succinate 50 mg ER tablet 25 mg 0.5 tab(s), Oral, qDay multivitamin (Myadec) with minerals Therapeutic Multiple Vitamins with Minerals Tablet 1 tab(s), Oral, qDayM ondansetron 2 mg/ 1 mL 2 mL INJ 4 mg 2 mL, IV Push, q8h spironolactone 25 mg tablet 25 mg 1 tab(s), Oral, qDay tramadol 50 mg Tablet 50 mg 1 tab(s), Oral, q6h Continuous: (0) PRN: (8) acetaminophen 325 mg Tablet 650 mg 2 tab(s), Oral, q4h diphenhydramine 25 mg tablet 25 mg 1 tab(s), Oral, q6h diphenhyDRAMINE 50 mg/mL (1 mL) INJ 25 mg 0.5 mL, IV Push, q6h morphine 2 mg/mL 1 mL syringe 2 mg 1 mL, IV Push, q1h ondansetron 2 mg/ 1 mL 2 mL INJ 4 mg 2 mL, IV Push, q8h prochlorperazine 10 mg/2 mL vial 5 mg 1 mL, IV Push, q6h sodium biphosphate-sodium phosphate 19 gm-7 gm Enema 133 mL, Rectal, qDay tramadol 50 mg Tablet 50 mg 1 tab(s), Oral, q6h Lab Results 01/01 05:27 WBC: 11.2 H Hgb: 9.0 L Hct: 25.7 L Platelet: 162 Neutrophil %: 80.1 H Glucose Level: 100 Sodium Level: 127 L Potassium Level: 5.2 H BUN: 31 H Creatinine Lvl (s): 0.89 05/07 06:40 Glucose Level: 94 Sodium Level: 133 L Potassium Level: 4.3 BUN: 28 H Creatinine Lvl (s): 0.70 EKG No qualifying data available. Assessment/Plan HTN, goal below 140/90 Osteoarthritis 1. Status post left direct anterior total hip arthroplasty postop day #1 2. Continue pain medications: Tylenol and tramadol. We are unable to use nonsteroidal anti-inflammatories as patient was having blood pressure control issues prior to surgery. I would defer postoperatively future nonsteroidal anti-inflammatories to the primary care physician. 3. DVT prophylaxis: Take 81 mg aspirin twice daily with food for 4 weeks postoperatively for DVT prophylaxis. Patient denies past history of DVT or pulmonary embolism. 4. Physical therapy: Weightbearing as tolerated with walker 5. H & H: 9.0/25.7, asymptomatic. Postoperative anemia secondary to blood loss from surgery versus dilutional component. Patient does have history of macrocytic anemia. Patient had estimated blood loss 350 mL with 1600 mL crystalloid replacement. Patient denies any dizziness or lightheadedness. She will be placed on ferrous sulfate and folic acid. We will repeat lab work tomorrow. Case management will also be on board scheduling follow-up with the primary care physician in 2-3 weeks with repeat lab work. I would defer further treatment with regards to the anemia to the primary care physician upon follow-up. 6. Reactive Leukocytosis: currently 11.2, afebrile. Patient did receive decadron intra-operatively. No clinical signs of infection. 7. Hyponatremia: Currently 127. Preoperatively she was initially at 131 and repeat lab work she came up to 133. Patient states the primary care physician is trying to figure out the reason for her hyponatremia. Medicine is currently on board and I do appreciate their recommendations for the hyponatremia. This will keep patient an additional night and we will repeat labs tomorrow. 8. Encouraged incentive spirometry 9. Continue postoperative medical management per medicine 10. Postoperative constipation: Discussed with the patient to continue stool softener until first bowel movement. After first bowel movement patient can then take as needed. They were also instructed that if they are not able to have a bowel movement within 3 days they are to contact our office for change of medication. Patient voiced understanding. 11. Disposition: Due to patient's current lab work and hyponatremia patient will require an additional night stay. I will defer treatment with the hyponatremia to medicine and appreciate their recommendations. We will repeat CBC and BMP tomorrow. Patient will continue to focus and work on therapy with regards to her left hip. Patient also states that she has significant amount of help upon discharge with her daughters and she does want to try to go home when medically stable. I have reviewed the [place] Automated Rx Reporting System (OARRS) report for this patient for refill pattern and other prescriber involvement as part of the appropriate surveillance for the provision of acute and chronic controlled medications. The report was requested and reviewed on the date of this entry, and was considered in the prescribing process This dictation was created using voice recognition software. Phonetic and/or grammatical errors may exist. Digitally Signed by MIGUEL SLADE PA-C on 01/02/2024 07:57 AM [facility] 01-01-2024 Note ORIGINAL EXAMINATION: ONE XRAY VIEW OF THE PELVIS AND TWO XRAY VIEWS LEFT HIP 01/01/2024 10:49 am COMPARISON: 10/12/2023 HISTORY: ORDERING SYSTEM PROVIDED HISTORY: Reason for Exam: Status Post Arthroplasty FINDINGS: The SI joints and pubic symphysis are not abnormally widened. No acute displaced pelvic fracture is identified. There is a left hip prosthesis. The components appear well seated and intact. Overlying subcutaneous emphysema could be consistent with immediate postoperative state. No acute fracture or dislocation. IMPRESSION: Surgical changes. Interpreted by: Saira Edmonds MD Preliminary Report By: Saira Edmonds MD Electronically signed By Saira Edmonds MD Dictated Date: 01/01/2024 11:09:20 AM Prelim Date: 01/01/2024 11:10:19 AM Sign Date: 01/01/2024 11:10:19 AM Ordering Provider: KEELY HERRERA [facility] 01-01-2024 Note ORIGINAL Images acquired, not reported on this accession number. [facility] 01-01-2024 Anesthesiology Consult note Patient: KELY PEREZ Age: 83 years Sex: Female : 1940 Associated Diagnoses: None Author: TIM HAMILTON Preoperative Information Time of last food or liquid consumption: 12/31/2023 23:59:00 Anesthesia history Patient's history: negative. Family's history: negative. Review of Systems Ear/Nose/Mouth/Throat: Negative except as documented in history of present illness. Respiratory: Negative except as documented in history of present illness. Cardiovascular: Negative except as documented in history of present illness. Gastrointestinal: Negative except as documented in history of present illness. Genitourinary: Negative except as documented in history of present illness. Endocrine: Negative except as documented in history of present illness. Musculoskeletal: Negative except as documented in history of present illness. Integumentary: Negative except as documented in history of present illness. Neurologic: Negative except as documented in history of present illness. Health Status Allergies: Allergic Reactions (Selected) NKA, Allergies (1) ActiveReaction NKANone Documented Current medications: (Selected) Inpatient Medications Ordered Betadine 10% topical solution: 17.5 mL, mL/hr, Topical (INT), PREOP pharm Decadron: 10 mg, 1 mL, IV Push, AsDirected LR 1,000 mL: 20 mL/hr, Intravenous, Stop: 01/01/24 23:59:00 EDT Naropin 100 mg + Toradol 15 mg + EPINEPHrine 1 mg/mL injectable solution 0.3 mg + morphine 2.5 mg...: 100 mg, 20 mL, mL/hr, Other, PREOP pharm Naropin 100 mg + Toradol 15 mg + EPINEPHrine 1 mg/mL injectable solution 0.3 mg + morphine 2.5 mg...: 100 mg, 20 mL, mL/hr, Other, PREOP pharm ceFAZolin: 2 gram(s), 200 mL/hr, IV Piggyback, PREOP pharm tranexamic acid 1 g / 100 mL 0.7% NaCl PMX: 1 gram(s), 100 mL, 300 mL/hr, IV Piggyback, AsDirected tranexamic acid 1 g / 100 mL 0.7% NaCl PMX: 1 gram(s), 100 mL, 300 mL/hr, IV Piggyback, AsDirected Prescriptions Prescribed hydrALAZINE 10 mg oral tablet: 10 mg, 1 tab(s), Oral, BID before brkst/lunch, for 30 day(s), 60 tab(s), 1 Refill(s) metoprolol succinate 25 mg oral TABLET extended release: 25 mg, 1 tab(s), Oral, qDay, 90 tab(s), 1 Refill(s) ramipril 10 mg oral capsule: 10 mg, 1 cap(s), Oral, qDay, Dose adjustment, 90 cap(s), 1 Refill(s) spironolactone 25 mg oral tablet: 25 mg, 1 tab(s), Oral, qDay, for 90 day(s), Take with food, 90 tab(s), 1 Refill(s) Documented Medications Documented Vitamin D3: 100 mcg, 1 tab(s), Oral, Daily, 90 tab(s), 0 Refill(s) calcium (as carbonate) 600 mg oral tablet: 1,200 mg, 2 tab(s), Oral, qDay, 0 Refill(s), Medications (8) Active Scheduled: (7) ceFAZolin 2 gram(s), IV Piggyback, PREOP pharm dexamethasone 10 mg/mL (1mL) SDV 10 mg 1 mL, IV Push, AsDirected povidone iodine topical 17.5 mL, Topical (INT), PREOP pharm ropivacaine 100 mg + ketorolac 15 mg + epinephrine 0.3 mg + morphine 2.5 mg 100 mg 20 mL, Other, PREOP pharm ropivacaine 100 mg + ketorolac 15 mg + epinephrine 0.3 mg + morphine 2.5 mg 100 mg 20 mL, Other, PREOP pharm tranexamic acid PMX 1 gram(s) 100 mL, IV Piggyback, AsDirected tranexamic acid PMX 1 gram(s) 100 mL, IV Piggyback, AsDirected Continuous: (1) Lactated Ringers 1,000 mL 1,000 mL, Intravenous, 20 mL/hr PRN: (0) Problem list: Medical Chronic lumbar pain / SNOMED CT 429555538 / Confirmed Heart murmur, 09/01 / SNOMED CT 269429022 / Confirmed Chronic left hip pain / SNOMED CT 50793855 / Confirmed History of left breast cancer / SNOMED CT 2660105233 / Confirmed History of lumpectomy of left breast / SNOMED CT 9995788532 / Confirmed Uncontrolled hypertension / SNOMED CT 6053284277 / Confirmed HTN, goal below 140/90 / SNOMED CT 6264773422 / Confirmed Left anterior fascicular block (LAFB) / SNOMED CT 99350232 / Confirmed Anemia, macrocytic / SNOMED CT 954407495 / Confirmed Mitral valve prolapse / SNOMED CT 2185712818 / Confirmed Non-smoker / SNOMED CT 75078072 / Confirmed Osteoporosis / SNOMED CT 071445376 / Confirmed Breast cancer screening / SNOMED CT 478947230 / Confirmed Screening for diabetes mellitus / SNOMED CT 634123501 / Confirmed Screening for cardiovascular condition / SNOMED CT 531525348 / Confirmed Risk and functional assessment / SNOMED CT 190444583 / Confirmed Pre-operative exam / SNOMED CT 861587327 / Confirmed Post-menopausal / SNOMED CT 450680742 / Confirmed Renal artery stenosis / SNOMED CT 305264882 / Confirmed Right bundle branch block / SNOMED CT 91298976 / Confirmed Skin lesion / SNOMED CT 633631909 / Confirmed Vitamin D deficiency / SNOMED CT 28115890 / Confirmed Canceled: Osteoporosis / SNOMED CT 975537096, Active Problems (23) Anemia, macrocytic Breast cancer screening Chronic left hip pain Chronic lumbar pain Heart murmur, 1/6 History of left breast cancer History of lumpectomy of left breast HTN, goal below 140/90 Left anterior fascicular block (LAFB) Mitral valve prolapse Non-smoker Osteoarthritis Osteoporosis Post-menopausal Pre-operative exam Renal artery stenosis Right bundle branch block Risk and functional assessment Screening for cardiovascular condition Screening for diabetes mellitus Skin lesion Uncontrolled hypertension Vitamin D deficiency Histories Past Medical History: No active or resolved past medical history items have been selected or recorded. Family History: Colitis Grandparent Breast cancer Mother Heart disease Father Glaucoma Grandparent Mother Coronary artery disease Sister Crohns disease Grandparent Procedure history: Lumpectomy ([id number]) in 2016 at 75 Years. section ([id number]). 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 Social History: Social & Psychosocial Habits Alcohol 12/25/2023 Use: Current Frequency: 1-2 times per year Substance Abuse 12/25/2023 Use: Never Tobacco 12/25/2023 Tobacco Use: Never (less than 100 in l Exposure to Tobacco Smoke Lives in non-smoking home Home/Environment 12/25/2023 Domestic Concerns None Primary Application Development Team Lead: Self Lives In 1st floor bathroom, 1st floor bedroom, Multilevel home Marital Status of Patient if Patient Independent Adult: Unmarried Nutrition/Health 12/25/2023 Type of diet: Regular Caffeine intake amount: Coffee daily Eating Difficulties None Physical Examination Vital Signs 01/01/2024 6:09 EDT Temperature Temporal Artery 36.6 DegC Apical Heart Rate 62 bpm Respiratory Rate 14 br/min Systolic Blood Pressure Non-Invasive 173 mmHg HI Diastolic Blood Pressure Non-Invasive 75 mmHg Vital Signs(last 24 hrs) Last Charted SBPH 173mmHg (DECEMBER 31 06:09) DBP75 mmHg (DECEMBER 31 06:09) BMI23.91 (DECEMBER 31 06:25) Measurements from flowsheet : Measurements 01/01/2024 6:25 EDT Body Mass Index 23.91 kg/m2 01/01/2024 6:09 EDT Height 165.4 cm Admission Weight 65.4 kg Cherry Log Body Weight 57.27 kg Admission Body Mass Index 23.91 m2 Pain assessment: Pain Assessment 01/01/2024 6:09 EDT Primary Pain Intensity 0 Pain Scale Type 0-10 Pain scale . General: Alert and oriented. Airway: Normal neck range of motion. Mallampati classification: II (soft palate, fauces, uvula visible). Head: Normocephalic. Dentition Evaluation: Intact, Own teeth. Neck: Full range of motion. Respiratory: Lungs are clear to auscultation. Cardiovascular: Normal rate. Heart Sounds: Normal. Gastrointestinal: . Musculoskeletal Normal range of motion. Integumentary: Intact, Warm, Dry. Neurologic: Alert, Oriented. Review / Management Results review: Labs (Last four charted values) Na L 133(DECEMBER 31) K 4.3(DECEMBER 31) CO2 26(DECEMBER 31) Cl 98(DECEMBER 31) Cr 0.70(DECEMBER 31) BUN H 28(DECEMBER 31) Glucose 94(DECEMBER 31) Ca 9.2(DECEMBER 31) , Lab results 01/01/2024 7:31 EDT SN - GCD - Case Level Level 6 01/01/2024 7:31 EDT SN - XI - X-Ray Type C-Arm 01/01/2024 7:27 EDT SN - Assess - LOC Alert, Awake SN - Assess - Orientation Oriented X 3 SN - Assess - Post-op Skin Integrity Intact/Dry 01/01/2024 7:27 EDT SN - CAt - Case Attendee SN - CAt - Case Attendee SN - CAt - Case Attendee SN - CAt - Case Attendee SN - CAt - Case Attendee SN - CAt - Case Attendee SN - CAt - Case Attendee SN - CAt - Case Attendee SN - CAt - Case Attendee SN - CAt - Case Attendee SN - CAt - Case Attendee SN - CAt - Case Attendee SN - CAt - Case Attendee SN - CAt - Case Attendee SN - CAt - Role Performed Primary Surgeon SN - CAt - Role Performed WHEEL INSPECTOR SN - CAt - Role Performed Food Service Hotel Runner 1 SN - CAt - Role Performed Scrub 1 SN - CAt - Role Performed Rn Hemodialysis Charge 1 SN - CAt - Role Performed Circuit Court Judge SN - CAt - Role Performed Physician Pediatric Cardiologist 01/01/2024 7:05 EDT SN - Preop - CTm Pt in SDS Room 01/01/2024 6:06 SN - Preop - CTm Pt Ready for OR/Proced 01/01/2024 7:05 01/01/2024 7:05 EDT Continuous IV Infusions LR Antecubital Right 01/01/2024 20 gauge Peripheral IV Activity: Insert new site Peripheral IV Dressing Condition: Clean, Dry, Intact Peripheral IV Dressing Activity: Applied, Transparent dressing Peripheral IV Line Status/Patency: Continuous infusion Peripheral IV Line Care: Secured with tape Peripheral IV Site Condition: No complications Peripheral IV Equipment: Extension set Peripheral IV Number of Attempts: 1 01/01/2024 6:53 EDT celecoxib 400 mg mg Lactated Ringers Injection 1,000 mL mL 01/01/2024 6:50 EDT famotidine 20 mg mg 01/01/2024 6:45 EDT citric acid-sodium citrate Not Given: Other (Not Done) 01/01/2024 6:40 EDT Glucose Level 94 mg/dL Sodium Level 133 mmol/L LOW Potassium Level 4.3 mmol/L Chloride 98 mmol/L CO2 26 mmol/L Electrolyte Balance 9.0 mEq/L BUN 28 mg/dL HI Creatinine Lvl (s) 0.70 mg/dL BUN/Creatinine Ratio 40 ratio HI Calcium Lvl 9.2 mg/dL GFR Non- 80 ml/min/1.73sqm NA GFR 96 ml/min/1.73sqm NA Creatinine Clearance Calc 53.12 mL/min 01/01/2024 6:25 EDT Designated Person #1 We May Share [facility] JULISSA [phone] Designated Person #1 Relationship Family member Designated Person #2 We May Share [facility] DALILA CURTIS EMILY, LUCINDA, JANE, MINDY Designated Person #2 Relationship Family member Privacy Restrictions Requested None Body Mass Index 23.91 kg/m2 Status N/A Sensory Deficits None Sleep Apnea Snore Yes Sleep Apnea Tired Yes Sleep Apnea Obstruction No Sleep Apnea Pressure Yes Sleep Apnea BMI No Sleep Apnea Age Yes Sleep Apnea Neck No Sleep Apnea Gender No Sleep Apnea Score 4 Diagnosed With Sleep Apnea No Advanced Directives Unable to obtain Infectious Disease Symptoms Patient states no symptoms Infectious Disease Recent Exposure No Alcohol and Drug Use No Employee of Institutional Living No Health Care Employee No History of Exposure to TB No History of Positive Chest X-Ray for TB No History of Positive TB Skin Test No Homeless No Known Immunosuppression No Recent Immigrant No Resident of Institutional Living No Bloody Sputum No Fatigue No Fever No Loss of Appetite No Night Sweats No Persistent Cough > 3 Weeks No Weight Loss No Pre-Op Patient Education NPO after midnight, No smoking after midnight, No makeup, No jewelry, Aware of surgery location, Pre-op education done, 1 bottle CHG wash with instructions given, Instructed to take ordered medications SN - Preprocedure Comments Spoke with patient, Verbalizes/Nonverbally indicates understanding, Other: RAMIPRIL (PER JACI) Anesthesia Evaluation Date/Time 12/10/2023 11:40 Anesthesia Evaluation Performed By TRISTAN ALY APRN-WHEEL INSPECTOR Anesthesia Evaluation Result Approved Individuals Taught Patient, Daughter Learning Readiness Willing to learn Barriers to Learning None evident Teaching Method Explanation, Printed materials Preferred Spoken Language Bangladeshi Preferred Written Language Bangladeshi Teaching Evaluation Needs further teaching Total Joint Book Given Yes Safety Brochure Information Reviewed Unable to complete Danuta Woo Video Viewed No Information Given by Patient Patient's Current Physicians Patient's Current Physicians Discharge To, Anticipated Home with family care Prev Test Positive/Diagnosis w/COVID-19 No Current Quarantine/Isolated any Illness No Any Contact with Sick Animals/Birds No Traveled Anywhere in Last 30 Days No Lost Weight Unintentionally Recently No Eat Poorly Due to Decreased Appetite No Total MST Score 0 N/A Personal Devices, Patient Valuables Dentures, lower, Dentures, upper, Glasses Anesthesia/Transfusions Prior anesthesia Admission Note-Nursing Same Day Patient History 01/01/2024 6:19 EDT Allergies No Anesthesia Extension Set Applied Yes Community Placement Worker On Yes Consent Form Signed Yes Patient Dressed In Hospital gown Pre-op Preparation Glasses removed, Shave prep done by clippers CHG Preoperative Wash/Wipe Night before procedure, Day of procedure Non-CHG Preoperative Shampoo Shampoo Preop Nasal Swab Povidone-Iodine History & Physical Update On Chart Yes History & Physical On Chart Yes Obstructive Sleep Apnea Assess Completed No Belongings At Bedside Glasses Personal Home Medications Received No home medications were brought in Belongings Sent Home None Belongings to Security/Secured in Dept None NPO Status Maintained Allergy Band on and Verified No Blood Band on and Verified No Patient ID Band on and Verified Yes Implants Verified Yes Pacemaker/AICD Verified Yes Site Verified by Patient/Family Yes Anesthesia Consent Signed Yes Blood Consent Signed Yes Last Fluid Intake 12/31/2023 19:00 Last Food Intake 12/31/2023 19:00 Last Void 01/01/2024 6:00 01/01/2024 6:09 EDT Height 165.4 cm Admission Weight 65.4 kg Cherry Log Body Weight 57.27 kg Admission Body Mass Index 23.91 m2 Temperature Temporal Artery 36.6 DegC Apical Heart Rate 62 bpm Respiratory Rate 14 br/min Systolic Blood Pressure Non-Invasive 173 mmHg HI Diastolic Blood Pressure Non-Invasive 75 mmHg Primary Pain Intensity 0 Pain Scale Type 0-10 Pain scale Heart Sounds ICU S1S2 Heart Rhythm Regular Dorsalis Pedis Pulse, Left 1+ Thready Dorsalis Pedis Pulse, Right 1+ Thready Respirations Unlabored All Lobes Breath Sounds Clear, Equal Oxygen Therapy Room air Oxygen Saturation 96 % Abdomen Description Non-distended Bowel Sounds All Quadrants Present Urinary Elimination Voiding, no difficulties Skin Temperature Warm Skin Description Gonzalez, Dry Skin Integrity Intact Mucous Membrane Color Gonzalez Skin Moisture General Dry Characteristics of Speech Clear Level of Consciousness Alert Strength All Extremities Moderate Affect/Behavior Appropriate, Calm, Cooperative Orientation Oriented x 4 Patient Identified Identification band, Verbal Arrival Mode Ambulatory Eliza Motor (2) Moves 4 extremities voluntarily or on command Eliza Respirations (2) Spontaneous respiration without support, RR > 10 Eliza Blood Pressure (1) BP 20-49% above or below preanesthetic level Eliza Pulse (2) Pulse 20% above or below preanesthetic level Eliza Oxygen Saturation (2) 94% or more Eliza Level of Consciousness (2) Fully awake Eliza III Score 11 Assistive Device Walker Standard Safety ID band on, Call device within reach, Bed in low position, Wheels locked, Non-Slip footwear . Assessment and Plan [place] Society of Anesthesiologists (ASA) physical status classification: Class III. Anesthetic Preoperative Plan Premedication: None. Anesthetic technique: Spinal. Induction. Maintenance airway: Mask. Regional: Spinal. Postoperative pain management: Per surgeon. Risks discussed: nausea, vomiting, headache, sore throat, dental injury, hypotension, allergic reaction, serious complications. Informed consent: signed by patient. Digitally Signed by TIM HAMILTON on 01/01/2024 07:46 AM [facility] 12-26-2023 Note ORIGINAL NM MYOCARDIAL SPECT STRESS/REST CLINICAL STATEMENT: preop, htn, sob TECHNIQUE: Lexiscan dose:0.4 mg Radiopharmaceutical (stress): Tc-99m Sestamibi Dose:32.8 mCi Radiopharmaceutical (rest): Tc-99m Sestamibi Dose:10.7 mCi SPECT acquisition and processing Reconstruction and reorientation of SPECT images into short axis, vertical and horizontal long axis planes Quantitative LVEF assessment COMPARISON:None REPORT: Poststress myocardial perfusion images showed severe perfusion defect at the apical inferior wall extending to entire inferior wall and apical lateral wall Resting images showed similar perfusion defect LVEF 69% with normal wall motion and wall thickening TID 1.07 IMPRESSION: Negative for gross ischemia or infarct imaging part of the stress test Fixed perfusion defect at the inferior wall most likely due to artifact, some GI uptake was noted at the inferior wall. Wall motion is preserved at the inferior wall LVEF 69% with normal wall motion Interpreted By: Tomer Campbell Preliminary Report By: Tomer Campbell Electronically Signed By: Tomer Campbell Dictated Date: 12/26/2023 12:59:35 PM Prelim Date: 12/26/2023 12:59:35 PM Sign Date: 12/26/2023 1:01:57 PM Ordering Provider:[facility] 12-10-2023 Note ORIGINAL EXAMINATION: CT OF THE LEFT HIP WITHOUT CONTRAST 12/10/2023 1:16 pm TECHNIQUE: CT of the left hip was performed without the administration of intravenous contrast. Multiplanar reformatted images are provided for review. Automated exposure control, iterative reconstruction, and/or weight based adjustment of the mA/kV was utilized to reduce the radiation dose to as low as reasonably achievable. COMPARISON: None. HISTORY ORDERING SYSTEM PROVIDED HISTORY: Reason for Exam: chronic lt hip pain. no recent injury. RICHARD protocol. FINDINGS: Preoperative planning CT performed per Richard protocol. No acute fractures visualized. Advanced degenerative changes seen in the left hip with [id number] arthropathy. There are large hypertrophic spurs as well as large subchondral cysts in both the left femoral head and left acetabulum.. There also lusa-hl-[id number] degenerative changes in the right hip. There is chondrocalcinosis in the knees with associated degenerative changes bilaterally. Degenerative changes seen in the visualized portion of the lumbar spine Diverticula seen in the visualized portion of the colon. No focal inflammatory changes seen in the pelvis. Vascular calcifications seen of the aorta and larger pelvic vessels. No suspicious findings seen in the soft tissues. IMPRESSION: 1. Preoperative planning CT performed per Richard protocol. 2. Advanced degenerative changes in the left hip. 3. Lbyt-rc-rocjiwqw degenerative changes in the right hip 4. Chondrocalcinosis in the knees with associated degenerative changes Interpreted by: Jesus Head MD Preliminary Report By: Jesus Head MD Electronically signed By Jesus Head MD Dictated Date: 12/10/2023 4:18:50 PM Prelim Date: 12/10/2023 4:21:56 PM Sign Date: 12/10/2023 4:21:56 PM Ordering Provider: KEELY HERRERA [facility] 12-10-2023 Note Sinus rhythm RBBB and LAFB Electronic Signature: JESUSITA STANLEY MD 12/10/2023 16:19:56 [facility] 10-12-2023 Note ORIGINAL EXAMINATION: XRAY VIEWS OF THE LEFT HIP 10/12/2023 12:51 pm COMPARISON: None. HISTORY: ORDERING SYSTEM PROVIDED HISTORY: Reason for Exam: chronic hip pain not improved with conservative out patient measures FINDINGS: The left femoral head is seated within the acetabulum. The joint space is severely narrowed with subchondral cyst formation, subchondral eburnation and marginal osteophyte formation. No acute fracture, dislocation or radiopaque foreign bodies. IMPRESSION: Severe left hip osteoarthritis. No acute osseous abnormality of the left hip Interpreted by: Clint Diop MD Preliminary Report By: Clint Diop MD Electronically signed By Clint Diop MD Dictated Date: 10/12/2023 2:09:29 PM Prelim Date: 10/12/2023 2:09:56 PM Sign Date: 10/12/2023 2:09:56 PM Ordering Provider: KEVIN CHERY [facility] 02-17-2022 Miscellaneous Notes Patient notified. Jaida Esqueda LPN Please inform pt. that her mammogram looks good. Follow up as scheduled. Thank you. Laurie Hamm APRN.MATEO documented in this encounter [facility] 10-31-2021 Note HNO ID: [id number] Author: Laurie Hamm APRN.CNP Service: ? Author Type: Nurse Practitioner Type: Progress Notes Filed: 11/01/2021 8:19 AM Note Text: Chief Complaint Patient presents with: Established Patient HPI: Kely Perez is a 81 year old female who presents here today for follow up breast cancer. Per Dr. Perry's previous note: H/o found a lump in her left breast. She underwent a bilateral diagnostic mammogram on 05/15/2016. There was a 1.2 x 1.4 cm ill-defined density deep in the upper lateral aspect of the left breast. Small lymph nodes in the axillary region were observed. On ultrasound this abnormality measured 1.5 x 1.6 x 1.4 cm. It was an ill-defined hypoechoic nodule at the 4:00 position in the breast 3 cm from the nipple. ? She was referred to Dr. Coles and underwent a core needle biopsy on 05/18/2016. The specimen revealed invasive ductal carcinoma, nuclear grade 2. Estrogen receptors were quantified at greater than 95%, moderate to strong. KY was 48%, moderate. HER-2 was 2+. Subsequent FISH testing was interpreted as not amplified with a HER-2 to CEP 17 ratio 1.16. Average HER-2 signal is 1.8 the average CEP 17 signal is 1.55. ? She subsequently underwent a left breast lumpectomy on 06/01/2016. She was found to have a 1.5 cm tumor that was determined to be a grade 2. The closest margin was 3 mm. Lymphovascular invasion was not identified. Number of lymph nodes retrieved was 5. All were negative for disease. ? Was seen by radiation oncology. Radiation was present and is an option but outcomes thought to be the same provided she is treated with aromatase inhibitor therapy. ? Current therapy: 1) Anastrozole since 07/24/2016. ? Pt. overdue for visit. Last seen 06/19/[address] Perry. Mammogram and bone density ordered by PCP January 2021. No new concerns today. Appetite:It's decent. I don't have any issues. Energy level:It's ok. Denies fevers or recent illness. Resp:denies cough or sob Cardiac:denies chest pain/palpitations GI:denies abd pain, n/v, moving bowels regularly :denies dysuria/hematuria Extrem:denies pain Endo:denies hot flashes Neuro:denies symptoms of neuropathy Skin:denies rashes/lesions Heme:denies bleeding The ROS is otherwise negative. Past medical history, appointments, medications, allergies reviewed. No changes. EXAM: BP 172/97 Pulse 65 Temp 36.7 ?C (98.1 ?F) (Temporal) Ht 165.1 cm (5' 5) Wt 65.1 kg (143 lb 8 oz) BMI 23.88 kg/m? APPEARANCE Well appearing, alert, in no acute distress, well-hydrated, well nourished. HEART RRR with normal S1 and S2, no murmurs LUNG clear to auscultation BREAST FEMALE no mass/nodule b/l, dense tissue b/l LYMPH NODES No cervical lymphadenopathy, No supraclavicular lymphadenopathy and No axillary lymphadenopathy. ABDOMEN bowel sounds normoactive, soft, non-tender, non-distended, without organomegaly or palpable masses EXTREMITIES No edema NEURO Awake, alert and oriented x 3, Normal gait and No involuntary motions. SKIN Skin color, texture, turgor normal, no suspicious rashes or lesions ASSESSMENT/PLAN: 1. 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 - No concerning findings on exam. - Tolerating arimidex well. - Reviewed mammogram/bone density with pt. (both ordered by PCP). - Bone density now showing osteoporosis-pt. was not aware of bone density result. - Pt. has now completed over 5 years of arimidex therapy. - Stop arimidex due to worsening bone density. - Follow up with PCP to discuss bone density. - Mammogram due after January 27, 2022 at [facility]. - Follow up in one year. - Pt. aware to call office with any questions/concerns. The patient indicates understanding of these issues and agrees with the plan. All documentation from previous visit of 06/19/19-Dr. Perry was copied and pasted, documentation has been reviewed and edited as necessary for today's visit. Laurie Hamm APRN.CNP [facility] 05-25-2016 History of Past i llness Narrative Problem Noted Date Resolved Date Malignant neoplasm of upper- outer quadrant of left female breast 05/25/2016 05/25/2017 documented as of this encounter (statuses as of 02/17/2022) [facility] Appointment Date:01/04/2023 02:00:00 PM Scheduled Provider:KEVIN CHERY APRN - TELEGRAPH REPEATER INSTALLER Location:[facility] Appointment Type:PC OV Follow Up Future Scheduled Tests Radiology* MA Mammo Screening Bilateral w/ Joey 12/05/22 * BD Bone Density DEXA Axial Skeleton 12/05/22 [facility] Evaluation + Plan note Future Appointments Appointment Date:04/19/2023 07:40:00 AM Scheduled Provider:KEVIN CHERY APRN - TELEGRAPH REPEATER INSTALLER Location:[facility] Appointment Type:PC OV Follow Up Diagnostic Tests Pending * Cortisol, Free Serum 04/12/23 * Metanephrines, Plasma 04/12/23 Future Scheduled Tests Laboratory* Iron Level 07/07/23 * Complete Blood Count 07/07/23 * Vitamin D Level 07/07/23 * Complete Metabolic Panel 07/07/23 * TIBC 07/07/23 Radiology* BD Bone Density DEXA Axial Skeleton 12/05/22 [facility] Evaluation + Plan note Future Appointments Appointment Date:10/11/2023 09:40:00 AM Scheduled Provider:KEVIN CHERY APRN - TELEGRAPH REPEATER INSTALLER Location:[facility] Appointment Type:PC OV Follow Up [facility] Evaluation + Plan note Future Appointments Appointment Date:04/10/2024 09:40:00 AM Scheduled Provider:KEVIN CHERY APRN - TELEGRAPH REPEATER INSTALLER Location:[facility] Appointment Type:PC OV Follow Up Future Scheduled Tests Laboratory* Iron Level 04/10/24 * Complete Blood Count 04/10/24 * Lipid Profile 04/10/24 * Albumin/Creatinine Ratio, Random Urine 04/10/24 * Vitamin D Level 04/10/24 * Complete Metabolic Panel 04/10/24 * TIBC 04/10/24 [facility] Evaluation + Plan note Future Appointments Appointment Date:12/17/2023 10:20:00 AM Scheduled Provider:KEVIN CHERY APRN, CNP [facility] Appointment Type:PC OV Pre Op Appointment Date:01/04/2024 10:00:00 AM Scheduled Provider: Location:[facility] Appointment Type:PT Outpatient Evaluation Appointment Date:04/10/2024 09:40:00 AM Scheduled Provider:KEVIN CHERY APRN, CNP [facility] Appointment Type:PC OV Follow Up Future Scheduled Tests Laboratory* Iron Level 04/10/24 * Complete Blood Count 04/10/24 * Lipid Profile 04/10/24 * Albumin/Creatinine Ratio, Random Urine 04/10/24 * Vitamin D Level 04/10/24 * Complete Metabolic Panel 04/10/24 * TIBC 04/10/24 [facility] Evaluation + Plan note Future Appointments Appointment Date:12/27/2023 08:45:00 AM Scheduled Provider: [facility] Appointment Type:PC Nurse Lab Appointment Date:01/04/2024 10:00:00 AM Scheduled Provider: Location:[facility] Appointment Type:PT Outpatient Evaluation Appointment Date:04/10/2024 09:40:00 AM Scheduled Provider:KEVIN CHERY APRN, CNP Location:[facility] Appointment Type:PC OV Follow Up Future Scheduled Tests Laboratory* Iron Level 04/10/24 * Complete Blood Count 04/10/24 * Lipid Profile 04/10/24 * Albumin/Creatinine Ratio, Random Urine 04/10/24 * Vitamin D Level 04/10/24 * Complete Metabolic Panel 04/10/24 * TIBC 04/10/24 [facility] Evaluation + Plan note Future Appointments Appointment Date:01/04/2024 10:00:00 AM Scheduled Provider: Location:[facility] Appointment Type:PT Outpatient Evaluation Appointment Date:04/10/2024 09:40:00 AM Scheduled Provider:KEVIN CHERY APRN, CNP Location:[facility] Appointment Type: OV Follow Up Future Scheduled Tests Laboratory* Basic Metabolic Panel 12/29/23 * Iron Level 15 * Lipid Profile 15 * Albumin/Creatinine Ratio, Random Urine 04/10/24 * Vitamin D Level 04/10/24 * TIBC 04/10/24 [facility] [employer] + Plan note Future Appointments Appointment Date:01/07/2024 02:30:00 PM Scheduled Provider: Location:[facility] Appointment Type:PT Outpatient Evaluation Appointment Date:01/17/2024 10:20:00 AM Scheduled Provider:KEVIN CHERY APRN, CNP [facility] Appointment Type:[facility] Follow-Up Appointment Date:04/10/2024 09:40:00 AM Scheduled Provider:KEVIN CHERY APRN, CNP [facility] Appointment Type: OV Follow Up Future Scheduled Tests Laboratory* Basic Metabolic Panel 12/29/23 * Iron Level 04/10/24 * Lipid Profile 04/10/24 * Albumin/Creatinine Ratio, Random Urine 04/10/24 * Vitamin D Level 04/10/24 * TIBC 04/10/24 [facility] Evaluation + Plan note Future Appointments Appointment Date:01/17/2024 10:20:00 AM Scheduled Provider:KEVIN CHERY APRN, CNP [facility] Appointment Type:[facility] Follow-Up Appointment Date:01/18/2024 01:00:00 PM Scheduled Provider: Location:[facility] Appointment Type:PT [facility] Appointment Date:01/22/2024 11:00:00 AM Scheduled Provider: Location:[facility] Appointment Type:PT [facility] Appointment Date:01/25/2024 11:00:00 AM Scheduled Provider: Location:[facility] Appointment Type:PT [facility] Appointment Date:02/06/2024 11:00:00 AM Scheduled Provider: Location:[facility] Appointment Type:PT [facility] Appointment Date:02/08/2024 11:00:00 AM Scheduled Provider: Location:[facility]11/[facility] 11:00:00 AM Scheduled Provider: Location:[facility] Appointment Type:PT Treatment [facility] Appointment Date:02/13/2024 11:00:00 AM Scheduled Provider: Location:[facility] Appointment Type:PT [facility] Appointment Date:04/10/2024 09:40:00 AM Scheduled Provider:KEVIN CHERY APRN, CNP Location:[facility] Appointment Type:PC OV Follow Up Future Scheduled Tests Laboratory* Basic Metabolic Panel 12/29/23 * Iron Level 04/10/24 * Lipid Profile 04/10/24 * Albumin/Creatinine Ratio, Random Urine 04/10/24 * Vitamin D Level 04/10/24 * TIBC 04/10/24 [facility] Evaluation + Plan note Future Appointments Appointment Date:04/03/2024 08:30:00 AM Scheduled Provider: Location:[facility] Appointment Type:PC Nurse Lab Appointment Date:04/10/2024 09:40:00 AM Scheduled Provider:KEVIN CHERY APRN, CNP Location:[facility] Appointment Type:PC OV Follow Up Future Scheduled Tests Laboratory* Basic Metabolic Panel 12/29/23 * Iron Level 01/17/24 * Iron Level 04/10/24 * Complete Blood Count 01/17/24 * Lipid Profile 04/10/24 * Albumin/Creatinine Ratio, Random Urine 04/10/24 * Vitamin D Level 04/10/24 * Complete Metabolic Panel 01/17/24 * TIBC 01/17/24 * TIBC 04/10/24 [facility] Evaluation + Plan note Future Appointments Appointment Date:10/06/2024 09:20:00 AM Scheduled Provider:KEVIN CHERY APRN, CNP Location:[facility] Appointment Type:PC OV Future Scheduled Tests Laboratory* Basic Metabolic Panel 12/29/23 * Iron Level 01/17/24 * Complete Metabolic Panel 01/17/24 * TIBC 01/17/24 [facility] Evaluation + Plan note Future Appointments Appointment Date:11/03/2024 09:40:00 AM Scheduled Provider:KEVIN CHERY APRN - MATEO Location:[facility] Appointment Type:PC OV Future Scheduled Tests Laboratory* Basic Metabolic Panel 12/29/23 * Iron Level 01/17/24 * Complete Metabolic Panel 01/17/24 * TIBC 01/17/24 [facility] Evaluation + Plan note Future Appointments Appointment Date:05/04/2025 10:00:00 AM Scheduled Provider:KEVIN CHERY CATALOG SPECIALIST - TELEGRAPH REPEATER INSTALLER Location:[facility] Appointment Type:PC OV Future Scheduled Tests Laboratory* Albumin/Creatinine Ratio, Random Urine 05/06/25 [facility] Evaluation noteNo assessment information available [facility] Work Phone: Hospital course Narrative No data available for this section [facility] Hospital Discharge instructions No data available for this section [facility] Progress note No data available for this section [facility] Chief Complaint and Reason for Visit Chief Complaint SCREENING Chief Complaint HYPERTENSION OSTEOPOROSIS SCREENING/SCREENING Chief Complaint HYPERTENSION OSTEOPOROSIS SCREENING/SCREENING Essential (primary) hypertension Advance Directives No Advanced Directives Records Found Advance Directive Response Recorded Date/ Time Advance Directives Yes June 01, 2016 10:15am Living Will Yes June 01 6 10:15am Power of Nonprofit Manager Yes June 01 016 10:15am Summary Purpose Family History No Family History Records FoundNo Family History Records Found No data available for this section No data available for this section No data available for this section No data available for this section No data available for this section No data available for this section No data available for this section No data available for this section No data available for this section No data available for this section No data available for this section No Family History Records Found No data available for this section No data available for this section No Family History Records Found Additional Source Comments Goals (unrecognized section and content) Goals may be documented in a n alternate section No data available for this sectionGoals may be documented in an alternate section No data available for this sectionGoals may be documented in an alternate section No data available for this section No data available for this section No data available for this section No data available for this section No data available for this section No data available for this section No data available for this section No data available for this section No data available for this section No data available for this section No data available for this section No data available for this section Source Comments (unrecognize d section and content) In the event this informatio n is protected by the Federal Confidentiality of Alcohol and Drug Abuse Patient Records regulations: The Federal rules restrict any use of the information to criminally investigate or prosecute any alcohol or drug abuse patient.[facility] Reason for Visit (unrecogniz ed section and content) Reason Comments Results Care Teams (unrecognized sec tion and content) Senior Account Director Relationship Specialty Start Date End Date Franki Alberts MD [address] [place], [place] [id number] PCP - General Family Practice 05/16/16 Lawrence Boston MD, [address] [place] [address] Physician Radiation Oncology 07/05/16 Team Status: Active Member Role Status Dates Dr. Francisco Alberts MD Family Provider Active Kevin Chery WORKDAY CONSULTANT, WORKDAY CONSULTANT-C Primary Care Provider Active Team Status: Active Member Role Status Dates Kevin Chery NP, WORKDAY CONSULTANT-C Primary Care Provider Active Dr. Isidro Rueda MD Attending Provider Active Team Status: Inactive Member Role Status Dates Kevin Chery NP, WORKDAY CONSULTANT-C Primary Care Provider, Attending Provider, Referring Provider Active INFORMATION SOURCE (unrecogn ized section and content) DATE CREATED AUTHOR 02/18/2022 [facility] DATE CREATED AUTHOR AUTHOR'S ORGANIZ ATION 04/16/2023 [facility] DATE CREATED AUTHOR AUTHOR'S ORGANIZ ATION 04/02/2024 [facility] ([place]) DATE CREATED AUTHOR AUTHOR'S ORGANIZ ATION 05/07/2025 [facility] FOR RECORDS PERTAINING TO PATIENTS WHO ARE OR HAVE BEEN ENROLLED IN A CHEMICAL DEPENDENCY/SUBSTANCEABUSE PROGRAM, SOME INFORMATION MAY BE OMITTED. This clinical summary was aggregated from multiple sources. Caution should be exercised in using it in the provision of clinical care. This summary normalizes information from multiple sources, and as a consequence, information in this document may materially change the coding, format and clinical context of patient data. In addition, data may be omitted in some cases. CLINICAL DECISIONS SHOULD BE BASED ON THE PRIMARY CLINICAL RECORDS. [employer] [facility]. provides no warranty or guarantee of the accuracy or completeness of information in this document.
[2025-05-30 19:45] VITALS: BP 175/87; PULSE 59; RESP 16; O2SAT 99
[2025-05-30 20:49] VITALS: BP 167/87; PULSE 74; RESP 16; O2SAT 98
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
[2025-05-30 22:00] VITALS: BP 145/90; PULSE 66; RESP 17; TEMP 36.7; O2SAT 98
== END 2025-05-30 22:01 | disposition home or self-care (01) ==
PROVIDERS: Emergency Provider Emergency Medicine; PCP Nurse Practitioner Family; Visit Provider Emergency Medicine
DX: S20.219A Contusion of unspecified front wall of thorax, initial encounter (principal); V43.62XA Car passenger injured in collision with other type car in traffic accident, initial encounter; I10 Essential (primary) hypertension; Z79.899 Other long term (current) drug therapy
CPT/HCPCS: 71260; 96374; 96375; 96376; 99285; Q9967; A4216; J2405